=== PATIENT | male | born 1930 | race Hispanic/Latino ===

== ENCOUNTER 2018-07-22 10:16 | Inpatient (IN) | payer MEDICARE ==
[2018-07-22 10:28] VITALS: BMI 24.9
[2018-07-22] MEDS: Dextrose 5%/0.45% NS 1,000 ML IV SCH ×2 (11:25→22:19)
--- NOTE | 2018-07-22 11:36 | CP.PCM.CON ---
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 Ca at the bedside. And indicated that he was not feeling well and he has a blood test couple days ago with BUN as high as 101 and creatinine in the range of 2 approximately also the history and noted that he has history of liver cirrhosis etiology not clear. And he has history of chronic kidney disease with serum creatinine in the range of 1.6-1.7 I am told. Also he has significant celiac disease what appears to be chronic allergy to gluten and he has been taking gluten-free diet. He has been complaining of chronic itching for some time he has been evaluated by multiple air intercept controller for this chronic itching which causing some skin changes throughout his body. There was no nausea or vomiting although he has somewhat poor appetite and complaining also of leg swollen and increasing abdominal swollen as well. He complains of nocturia x1 or 2 but no dysuria also his past medical history related to his history of atrial fibrillation he was taken anticoagulation and has to be stopped although he has no longer atrial fibrillation recently and he is not taking anticoagulation and I am told his ejection fraction adequate as outpatient Past medical history Chronic kidney disease with serum creatinine of the range of 1.6-1.7 and told. Diabetes mellitus for many years he has been taking metformin Hypertension and he has been taking Avapro History of liver cirrhosis in the past 6 months or so told by the Medications Patient has been taking metformin and Avapro and hydrochlorothiazide which has been stopped yesterday also Also he is taking metoprolol Social history not contributory Review of Systems - Constitutional Constitutional: Anorexia, Malaise, Weakness. absent: Chills, Excessive Sweating - EENT Eyes: absent: Exophthalmos, Pain Ears: absent: Ear Discharge, Ear Pain Nose/Mouth/Throat: absent: Epistaxis, Nasal Discharge - Cardiovascular Cardiovascular: Edema, Leg Edema, Pedal Edema. absent: Acrocyanosis, Chest Pain, Dyspnea, Leg Ulcers - Respiratory Respiratory: Cough. absent: Chest Congestion - Gastrointestinal Gastrointestinal: Bloating, Diarrhea. absent: Abdominal Pain - Genitourinary Genitourinary: Nocturia - Musculoskeletal Musculoskeletal: Muscle Weakness. absent: Back Pain - Neurological Neurological: absent: Behavioral Changes, Confusion, Numbness, Focal Weakness - Psychiatric Psychiatric: absent: Anxiety, Confusion - Endocrine Endocrine: Fatigue - Hematologic/Lymphatic Hematologic: absent: Easy Bleeding Past Patient History - Infectious Disease Hx of Infectious Diseases: None - Past Social History Smoking Status: Never Smoked - PSYCHIATRIC Hx Substance Use: No Meds Allergies/Adverse Reactions: Allergies Allergy/AdvReac Type Severity Reaction Status Date / Time No Known Allergies Allergy Verified 07/22/18 10:50 Physical Exam - Constitutional Appears: No Acute Distress - Eye Exam Eye Exam: absent: Nystagmus - ENT Exam ENT Exam: Mucous Membranes Dry - Neck Exam Neck exam: Negative for: Lymphadenopathy - Respiratory Exam Respiratory Exam: NORMAL BREATHING PATTERN. absent: Chest Wall Tenderness, Rhonchi - Cardiovascular Exam Cardiovascular Exam: REGULAR RHYTHM, RRR. absent: Gallop, JVD, Rubs - GI/Abdominal Exam GI & Abdominal Exam: Distended, Normal Bowel Sounds. absent: Guarding Additional comments: Moderate abdominal ascites - Extremities Exam Extremities exam: Positive for: pedal edema. Negative for: calf tenderness - Back Exam Back exam: absent: CVA tenderness (L), CVA tenderness (R) - Neurological Exam Neurological exam: Alert - Psychiatric Exam Psychiatric exam: Normal Mood - Skin Skin Exam: Dry, Urticaria Additional comments: Some skin changes related to chronic itching in the abdomen and the chest wall and the back Results - Vital Signs Recent Vital Signs: Last Vital Signs Temp 99.1 F 07/22/18 10:30 Pulse 78 07/22/18 10:30 Resp 18 07/22/18 10:30 BP 129/59 L 07/22/18 10:30 Pulse Ox 99 07/22/18 10:30 - Labs Result Diagrams: 07/22/18 11:23 07/22/18 11:23 Assessment & Plan (1) KARMEN (acute kidney injury) Assessment and Plan: Rule out acute kidney injury possible from dehydration also patient was taking hydrochlorothiazide and WENDI inhibitor super imposed on chronic kidney disease perhaps stage III from the history when serum creatinine I am told in the range of 1.7 . Patient has abdominal ascites and leg edema with a history of liver cirrhosis Hypoalbuminemia Chronic celiac disease history Diabetes mellitus Hypertension Recommendation Discontinue Metformin because of the abnormal kidney function No WENDI inhibitor or ARB IV fluid D5 and half-normal saline Blood work including CBC complete metabolic profile hepatitis serology profile serum PTH serum phosphorus and serum uric acid 25% 50 cc albumin to be given every 12 hours for the next 24 hours because of the significant hypoalbuminemia and ascites. Urinalysis and spot urine for creatinine and protein Follow-up blood test. CT scan of the abdomen and pelvis without IV contrast Discuss with Dr. Ca and the emergency room physician. Status: Acute
[2018-07-22 11:46] LABS: VENOUS BLOOD GAS BASE EXCESS -7.1 mmol/L (0.0-2.0); VENOUS BLOOD GAS PCO2 28 mmHg (40-60); VENOUS BLOOD GAS PO2 39 mm/Hg (30-55); VENOUS BLOOD PH 7.38 (7.32-7.43)
[2018-07-22] MEDS ORDERED: Azithromycin 500 MG in Sodium Chloride 0.9% 250 ML IVPB STA (11:46)
[2018-07-22 11:47] LABS: BASO % 0.5 % (0.0-2.0); EOS # 0.1 K/uL (0.0-0.7); EOS % 2.8 % (0.0-4.0); HEMOGLOBIN 11.6 g/dL (12.0-18.0); LYMPH # 0.6 K/uL (1.0-4.3); LYMPH % 11.8 % (20.0-40.0); MEAN CELL VOLUME 97.1 fl (80.0-94.0); MEAN CORPUSCULAR HEMOGLOBIN 32.1 pg (27.0-31.0); MEAN PLATELET VOLUME 9.3 fl (7.2-11.7); MONO # 0.9 K/uL (0.0-0.8); MONO % 16.9 % (0.0-10.0); NEUT # 3.4 K/uL (1.8-7.0); NRBC % 0.1 % (0.0-0.0); RBC 3.63 Mil/uL (4.40-5.90); RED CELL DISTRIBUTION WIDTH 15.5 % (11.5-14.5)
[2018-07-22 11:58] LABS: ALBUMIN 3.6 g/dL (3.5-5.0); CALCIUM 9.1 mg/dL (8.4-10.2)
[2018-07-22] MEDS ORDERED: Azithromycin 500 MG IV IVPB ONE (12:08)
--- NOTE | 2018-07-22 12:19 | ED PDOC ---
HPI: General Adult Time Seen by Provider: 07/22/18 10:41 Chief Complaint (Nursing): Abnormal Labs Chief Complaint (Provider): Generalized malaise, abnormal renal labs History Per: Patient History/Exam Limitations: no limitations Additional Complaint(s): 88yo male, with history of CKD, celiac disease, AFib, diabetes, liver cirrhosis, comes to ER due to diarrhea, generalized malaise, cough and fever. Patient recently had labs done as well, and his creatinine was elevated at 2 (baseline is 1.6). Patient denies any abdominal pain or vomiting as well. No additional complaints. PMD: Dr. Ca Asset Management Coordinator: Dr. Orozco Past Medical History Reviewed: Historical Data, Nursing Documentation, Vital Signs Vital Signs: Last Vital Signs Temp 99.1 F 07/22/18 10:30 Pulse 78 07/22/18 10:30 Resp 18 07/22/18 10:30 BP 129/59 L 07/22/18 10:30 Pulse Ox 99 07/22/18 10:30 - Medical History PMH: Atrial Fibrillation, Diabetes, Chronic Kidney Disease - Family History Family History: States: No Known Family Hx - Social History Current smoker - smoking cessation education provided: No Alcohol: None Drugs: Denies - Home Medications Home Medications: Ambulatory Orders Medication Instructions Recorded Dicyclomine [Bentyl] 10 mg PO Q8 PRN 07/22/18 Irbesartan [Avapro] 300 mg PO DAILY 07/22/18 Metoprolol Succinate XL [Toprol XL] 50 mg PO DAILY 07/22/18 hydroCHLOROthiazide [Hydrodiuril] 25 mg PO DAILY 07/22/18 metFORMIN [glucOPHAGE] 500 mg PO BID 07/22/18 - Allergies Allergies/Adverse Reactions: Allergies Allergy/AdvReac Type Severity Reaction Status Date / Time No Known Allergies Allergy Verified 07/22/18 10:50 Review of Systems ROS Statement: Except As Marked, All Systems Reviewed And Found Negative Constitutional: Positive for: Fever (intermittent), Malaise Cardiovascular: Negative for: Chest Pain Respiratory: Positive for: Cough, Sputum. Negative for: Shortness of Breath Gastrointestinal: Positive for: Diarrhea. Negative for: Nausea, Vomiting, Abdominal Pain Physical Exam - Reviewed Nursing Documentation Reviewed: Yes Vital Signs Reviewed: Yes - Physical Exam Appears: Positive for: Non-toxic, No Acute Distress Head Exam: Positive for: ATRAUMATIC, NORMAL INSPECTION, NORMOCEPHALIC Skin: Positive for: Warm, Dry Eye Exam: Positive for: EOMI, PERRL ENT: Positive for: Normal ENT Inspection. Negative for: Pharyngeal Erythema, Tonsillar Exudate, Tonsillar Swelling Neck: Positive for: Normal, Painless ROM, Supple Cardiovascular/Chest: Positive for: Regular Rate, Rhythm. Negative for: Tach ycardia Respiratory: Positive for: Normal Breath Sounds. Negative for: Wheezing, Respiratory Distress Pulses-Radial (L): 2+ Pulses-Radial (R): 2+ Gastrointestinal/Abdominal: Positive for: Normal Exam, Soft. Negative for: Tenderness, Guarding, Rebound Back: Positive for: Normal Inspection. Negative for: L CVA Tenderness, R CVA Tenderness Extremity: Positive for: Normal ROM, Pedal Edema (non-pitting edema bilaterally) Neurological/Psych: Positive for: Awake, Alert, Oriented (x 3). Negative for: Motor/Sensory Deficits - Laboratory Results Result Diagrams: 07/22/18 11:23 07/23/18 05:30 Lab Results: pO2 39 mm/Hg (30-55) 07/22/18 11:35 VBG pH 7.38 (7.32-7.43) 07/22/18 11:35 VBG pCO2 28 mmHg (40-60) L 07/22/18 11:35 VBG HCO3 18.7 mmol/L 07/22/18 11:35 VBG Total CO2 17.5 mmol/L (22-28) L 07/22/18 11:35 VBG O2 Sat (Calc) 82.3 % (40-65) H 07/22/18 11:35 VBG Base Excess -7.1 mmol/L (0.0-2.0) L 07/22/18 11:35 VBG Potassium 4.5 mmol/L (3.6-5.2) 07/22/18 11:35 Sodium 138.0 mmol/L (132-148) 07/22/18 11:35 Chloride 111.0 mmol/L (98-107) H 07/22/18 11:35 Glucose 119 mg/dL (75-110) H 07/22/18 11:35 Lactate 1.9 mmol/L (0.7-2.1) 07/22/18 11:35 FiO2 21.0 % 07/22/18 11:35 Total Bilirubin 1.8 mg/dl (0.2-1.3) H 07/22/18 11:23 AST 35 U/L (17-59) 07/22/18 11:23 ALT 32 U/L (21-72) 07/22/18 11:23 Alkaline Phosphatase 120 U/L (38-126) 07/22/18 11:23 Total Protein 7.2 G/DL (6.3-8.2) 07/22/18 11:23 Albumin 3.6 g/dL (3.5-5.0) 07/22/18 11:23 Globulin 3.6 gm/dL (2.2-3.9) 07/22/18 11:23 Albumin/Globulin Ratio 1.0 (1.0-2.1) 07/22/18 11:23 - ECG O2 Sat by Pulse Oximetry: 99 (RA) Pulse Ox Interpretation: Normal Medical Decision Making Medical Decision Making: Impression: Diarrhea, fever, cough and abnormal labs Differential: Dehydration, pneumonia, sepsis, nephritis Patient evaluated at bedside by Dr. Ca and Dr. Orozco; recommendations appreciated. Plan: -- Labs -- CXR -- Rapid flu -- Urinalysis -- CT Chest, Abdomen and Pelvis 1200 CXR reviewed by me,right lower lobe opacity or infiltrate 1225 Serology reviewed, patient positive for influenza A [address] Rubin, and patient admitted under his service. 1454 CT Chest/Abdomen/Pelvis IMPRESSION: 1. Active CHF suggested mild right and minimal left pleural effusions noted. Cardiomegaly. Pulmonary vascular congestion. No pericardial effusion. 2. Limited patchy atelectasis or infiltrate right middle lobe with limited atelectasis favored at the dependent bilateral lower lobes and the lingula. 3. Cirrhosis with limited gastrohepatic ligament varices. Abdominal pelvic ascites felt to be related to cirrhosis. Splenomegaly to 15.9 cm, likely related to cirrhosis and possible hepatofugal blood flow. 4. Borderline segmental colitis descending colon. 5. Enlarged prostate gland. Scribe Attestation: Documented by Jane Ewing acting as a scribe for Zafar Blackburn MD. Provider Attestation: All medical record entries made by the Scribe were at my direction and personally dictated by me. I have reviewed the chart and agree that the record accurately reflects my personal performance of the history, physical exam, medical decision making, and the department course for this patient. I have also personally directed, reviewed, and agree with the discharge instructions and disposition. Disposition - Clinical Impression Clinical Impression: KARMEN (acute kidney injury), Pneumonia, Influenza A, CHF (congestive heart failure) - Patient ED Disposition Is Patient to be Admitted: Yes Discussed With : Manav Rubin Counseled Patient/Family Regarding: Studies Performed, Diagnosis - Disposition Disposition Time: 12:00 Condition: FAIR - Pt Status Changed To: Hospital Disposition Of: Inpatient - Admit Certification Admit to Inpatient:: After my assessment, the patient will require hospitalization for at least two midnights. This is because of the severity of symptoms shown, intensity of services needed, and/or the medical risk in this patient being treated as an outpatient. - POA Present On Arrival: None
[2018-07-22 12:33] LABS: INR 1.1; PROTHROMBIN TIME 12.6 Seconds (9.8-13.1)
--- NOTE | 2018-07-22 14:07 | CP.PCM.HP ---
<Garrett Jasos - Last Filed: 07/22/18 14:33> History of Present Illness - History of Present Illness History of Present Illness: 88 yo M with pmxhx of Atrial flutter, Diabetes, HTN, liver cirrhosis, celiac disease presents with yellow phlegmatous oral discharge and subjective fevers. Symptoms have been present for the past week. is present at bedside to give most of history. Reports intermittent diarrhea for 1 month. Denies Nausea or vomiting. Pt reports recent abnormal labs: BUN 100 Cr: 2.5; Denies history of renal failure; sent to ED per Dr. Ca; Pt states labs were ok in May. Of note, she has noticed progressive bilateral lower extremity swelling. They report that an ECHO was recently done at [place] and were told it was normal without CHF. PMD: Dr. Ca (Recently discontinued eliquis, metoprolol and hctz) Pulm: Dr. 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 absent: Dyspnea - Gastrointestinal Gastrointestinal: Abdominal Pain, Bloating, Change in Bowel Habits, Diarrhea, Excessive Flatus - Musculoskeletal Musculoskeletal: Abnormal Gait Past Patient History - Infectious Disease Hx of Infectious Diseases: None - Past Social History Smoking Status: Never Smoked Alcohol: None Drugs: Denies Home Situation {Lives}: With Family - CARDIAC Hx Atrial Fibrillation: No Hx Hypertension: Yes Other/Comment: Atrial flutter - RENAL Hx Chronic Kidney Disease: Yes - ENDOCRINE/METABOLIC Hx Diabetes Mellitus Type 2: Yes - GASTROINTESTINAL Hx Gastrointestinal Disorders: Yes (Celiac) - PSYCHIATRIC Hx Substance Use: No - SURGICAL HISTORY Hx Surgeries: Yes Other/Comment: Inguinal hernia x2; lap hortencia Meds Allergies/Adverse Reactions: Allergies Allergy/AdvReac Type Severity Reaction Status Date / Time No Known Allergies Allergy Verified 07/22/18 10:50 Physical Exam - Constitutional Appears: No Acute Distress - Eye Exam Eye Exam: EOMI - ENT Exam ENT Exam: Mucous Membranes Moist - Respiratory Exam Respiratory Exam: Decreased Breath Sounds, Rales (R>L) - Cardiovascular Exam Cardiovascular Exam: REGULAR RHYTHM, +S1, +S2 - GI/Abdominal Exam GI & Abdominal Exam: Distended (ascites), Normal Bowel Sounds, Soft. absent: Tenderness - Extremities Exam Extremities exam: Negative for: calf tenderness - Neurological Exam Neurological exam: Alert, CN II-XII Intact, Oriented x3 - Psychiatric Exam Psychiatric exam: Normal Affect, Normal Mood Results - Vital Signs Recent Vital Signs: Last Vital Signs Temp 97.7 F 07/22/18 13:30 Pulse 67 07/22/18 13:30 Resp 20 07/22/18 13:30 BP 135/68 07/22/18 13:30 Pulse Ox 99 07/22/18 13:58 - Labs Result Diagrams: 07/22/18 11:23 07/22/18 11:23 Labs: Laboratory Results - last 24 hr 07/22/18 07/22/18 07/22/18 11:23 11:23 11:23 WBC 5.0 RBC 3.63 L Hgb 11.6 L Hct 35.2 MCV 97.1 H MCH 32.1 H MCHC 33.0 RDW 15.5 H Plt Count 95 L D MPV 9.3 Neut % (Auto) 68.0 Lymph % (Auto) 11.8 L Hale % (Auto) 16.9 H Eos % (Auto) 2.8 Baso % (Auto) 0.5 Neut # (Auto) 3.4 Lymph # (Auto) 0.6 L Hale # (Auto) 0.9 H Eos # (Auto) 0.1 Baso # (Auto) 0.0 PT INR APTT pO2 VBG pH VBG pCO2 VBG HCO3 VBG Total CO2 VBG O2 Sat (Calc) VBG Base Excess VBG Potassium Glucose Lactate FiO2 Sodium 139 Potassium 4.6 Chloride 109 H Carbon Dioxide 14 L Anion Gap 21 H BUN 94 H Creatinine 2.9 H Est GFR ( Amer) 25 Est GFR (Non-Af Amer) 21 Random Glucose 114 H Calcium 9.1 Phosphorus 4.4 Magnesium 2.9 H Total Bilirubin 1.8 H AST 35 ALT 32 Alkaline Phosphatase 120 Ammonia Total Protein 7.2 Albumin 3.6 Globulin 3.6 Albumin/Globulin Ratio 1.0 Venous Blood Potassium Influenza Typ A,B (EIA) Pos for influenza a H Grp A Beta Strep Ag 07/22/18 07/22/18 07/22/18 11:23 11:35 12:13 WBC RBC Hgb Hct MCV MCH MCHC RDW Plt Count MPV Neut % (Auto) Lymph % (Auto) Hale % (Auto) Eos % (Auto) Baso % (Auto) Neut # (Auto) Lymph # (Auto) Hale # (Auto) Eos # (Auto) Baso # (Auto) PT 12.6 INR 1.1 APTT 35.0 pO2 39 VBG pH 7.38 VBG pCO2 28 L VBG HCO3 18.7 VBG Total CO2 17.5 L VBG O2 Sat (Calc) 82.3 H VBG Base Excess -7.1 L VBG Potassium 4.5 Glucose 119 H Lactate 1.9 FiO2 21.0 Sodium 138.0 Potassium Chloride 111.0 H Carbon Dioxide Anion Gap BUN Creatinine Est GFR ( Amer) Est GFR (Non-Af Amer) Random Glucose Calcium Phosphorus Magnesium Total Bilirubin AST ALT Alkaline Phosphatase Ammonia 42 H Total Protein Albumin Globulin Albumin/Globulin Ratio Venous Blood Potassium 4.5 Influenza Typ A,B (EIA) Grp A Beta Strep Ag 07/22/18 12:50 WBC RBC Hgb Hct MCV MCH MCHC RDW Plt Count MPV Neut % (Auto) Lymph % (Auto) Hale % (Auto) Eos % (Auto) Baso % (Auto) Neut # (Auto) Lymph # (Auto) Hale # (Auto) Eos # (Auto) Baso # (Auto) PT INR APTT pO2 VBG pH VBG pCO2 VBG HCO3 VBG Total CO2 VBG O2 Sat (Calc) VBG Base Excess VBG Potassium Glucose Lactate FiO2 Sodium Potassium Chloride Carbon Dioxide Anion Gap BUN Creatinine Est GFR ( Amer) Est GFR (Non-Af Amer) Random Glucose Calcium Phosphorus Magnesium Total Bilirubin AST ALT Alkaline Phosphatase Ammonia Total Protein Albumin Globulin Albumin/Globulin Ratio Venous Blood Potassium Influenza Typ A,B (EIA) Grp A Beta Strep Ag Negative Assessment & Plan - Assessment and Plan (Free Text) Assessment: 88 yo M with pmxhx of Atrial flutter, Diabetes, HTN, liver cirrhosis, celiac disease admitted for pneumonia, influenza and acute kidney injury. Plan: CXR: R pleural effusions CT chest/abdo/pelvis: pending official read Blood culture: pending Urine culture: pending KARMEN -BUN: 94, Cr: 2.9 -Nephrology: Dr. Orozco: d/c metformin, NO WENDI/ARB, IVF: d5 1/2 ns, hepatitis panel, PTH, phos, uric acid, 25% 50 cc albuminq q12; UA, spot urine (cr and protein) CT a/p -IVF: D5 1/2 NS -Renal diet -f/u labs above Influenza A -Tamiflu 30 mg BID (renal dose) -Isolation precaution: airborne Liver cirrhosis -Pt states was incidentally found on prior CT abdo -LFT: wnl -GI: Dr. Leo: further recs appreciated -f/u hepatitis panel, LFT R pleural effusion -cxr -chronic -R sided -DDX PNA -Pulmonology: Dr. Person: further recs appreciated -IVABX: Azithromycin and Zosyn -f/u probnp ddx (CHF) Atrial flutter -Not currently in flutter -Tele: environmental monitoring specialist -Cardiology: Dr. Ca: further recs appreciated HTN -normotensive -HCTZ and Metoprolol recently discontinued by Dr. Ca -Cardiology: Dr. Ca: further recs appreciated -continue to monitor BP -Will give antihypertensive (sparing kidneys) DM -Metformin held; -Accuchecks -ICS -hypoglycemia protocol Celiac disease; chronic -Renal diet with gluten free DVT prophylaxis -SCD -Lovenox 30 mg sc Case and plan d/w Dr. Scottie Jasso MD PGY2 <Manav Rubin D - Last Filed: 07/22/18 16:09> Results - Vital Signs Recent Vital Signs: Last Vital Signs Temp 97.5 F L 07/22/18 15:42 Pulse 66 07/22/18 15:42 Resp 18 07/22/18 15:42 BP 152/70 H 07/22/18 15:42 Pulse Ox 94 L 07/22/18 15:42 - Labs Result Diagrams: 07/22/18 11:23 07/22/18 11:23 Labs: Laboratory Results - last 24 hr 07/22/18 07/22/18 07/22/18 11:23 11:23 11:23 WBC 5.0 RBC 3.63 L Hgb 11.6 L Hct 35.2 MCV 97.1 H MCH 32.1 H MCHC 33.0 RDW 15.5 H Plt Count 95 L D MPV 9.3 Neut % (Auto) 68.0 Lymph % (Auto) 11.8 L Hale % (Auto) 16.9 H Eos % (Auto) 2.8 Baso % (Auto) 0.5 Neut # (Auto) 3.4 Lymph # (Auto) 0.6 L Hale # (Auto) 0.9 H Eos # (Auto) 0.1 Baso # (Auto) 0.0 PT INR APTT pO2 VBG pH VBG pCO2 VBG HCO3 VBG Total CO2 VBG O2 Sat (Calc) VBG Base Excess VBG Potassium Glucose Lactate FiO2 Sodium 139 Potassium 4.6 Chloride 109 H Carbon Dioxide 14 L Anion Gap 21 H BUN 94 H Creatinine 2.9 H Est GFR ( Amer) 25 Est GFR (Non-Af Amer) 21 Random Glucose 114 H Calcium 9.1 Phosphorus 4.4 Magnesium 2.9 H Total Bilirubin 1.8 H AST 35 ALT 32 Alkaline Phosphatase 120 Ammonia Total Protein 7.2 Albumin 3.6 Globulin 3.6 Albumin/Globulin Ratio 1.0 Venous Blood Potassium Influenza Typ A,B (EIA) Pos for influenza a H Grp A Beta Strep Ag 07/22/18 07/22/18 07/22/18 11:23 11:35 12:13 WBC RBC Hgb Hct MCV MCH MCHC RDW Plt Count MPV Neut % (Auto) Lymph % (Auto) Hale % (Auto) Eos % (Auto) Baso % (Auto) Neut # (Auto) Lymph # (Auto) Hale # (Auto) Eos # (Auto) Baso # (Auto) PT 12.6 INR 1.1 APTT 35.0 pO2 39 VBG pH 7.38 VBG pCO2 28 L VBG HCO3 18.7 VBG Total CO2 17.5 L VBG O2 Sat (Calc) 82.3 H VBG Base Excess -7.1 L VBG Potassium 4.5 Glucose 119 H Lactate 1.9 FiO2 21.0 Sodium 138.0 Potassium Chloride 111.0 H Carbon Dioxide Anion Gap BUN Creatinine Est GFR ( Amer) Est GFR (Non-Af Amer) Random Glucose Calcium Phosphorus Magnesium Total Bilirubin AST ALT Alkaline Phosphatase Ammonia 42 H Total Protein Albumin Globulin Albumin/Globulin Ratio Venous Blood Potassium 4.5 Influenza Typ A,B (EIA) Grp A Beta Strep Ag 07/22/18 12:50 WBC RBC Hgb Hct MCV MCH MCHC RDW Plt Count MPV Neut % (Auto) Lymph % (Auto) Hale % (Auto) Eos % (Auto) Baso % (Auto) Neut # (Auto) Lymph # (Auto) Hale # (Auto) Eos # (Auto) Baso # (Auto) PT INR APTT pO2 VBG pH VBG pCO2 VBG HCO3 VBG Total CO2 VBG O2 Sat (Calc) VBG Base Excess VBG Potassium Glucose Lactate FiO2 Sodium Potassium Chloride Carbon Dioxide Anion Gap BUN Creatinine Est GFR ( Amer) Est GFR (Non-Af Amer) Random Glucose Calcium Phosphorus Magnesium Total Bilirubin AST ALT Alkaline Phosphatase Ammonia Total Protein Albumin Globulin Albumin/Globulin Ratio Venous Blood Potassium Influenza Typ A,B (EIA) Grp A Beta Strep Ag Negative Attending/Attestation - Attestation I have personally seen and examined this patient.: Yes I have fully participated in the care of the patient.: Yes I have reviewed all pertinent clinical information: Yes Notes (Text): 07/22/18 16:00 Patient seen and examined with resident. Case discussed and agreed with assessment and plan of management. Shakirstacey is an 88 yo male with history of DM2, CKD and HTN diagnosed with liver cirrhosis a year ago of unknown etiology. He came in with generalized weakness, diarrhea, low grade fever associated with coughing and mild SOB. CXray showed cardiomegaly, right pleural effusion rule out infiltrate. Test is positive for viral flu.
[2018-07-22] MEDS ORDERED: Glucagon Recombinant 1 mg Inj IM PRN (14:56)
[2018-07-22] MEDS ORDERED: Dextrose 50% SYRINGE Inj (50 ml) IV PRN (14:56)
--- NOTE | 2018-07-22 14:58 | CT ---
Date of service: 07/22/2018 PROCEDURE: CT Chest, Abdomen and Pelvis without intravenous contrast HISTORY: acute renal failure COMPARISON: None available. TECHNIQUE: A helical CT examination of the chest, abdomen and pelvis was performed from the domes of the thoracic inlet to the symphysis pubis with reformatted datasets provided in axial, sagittal and coronal planes. Oral and intravenous contrast were not administered as per referring physician request. Radiation dose: Total exam DLP = 890.17 mGy-cm. This CT exam was performed using one or more of the following dose reduction techniques: Automated exposure control, adjustment of the mA and/or kV according to patient size, and/or use of iterative reconstruction technique. FINDINGS: CT CHEST WITHOUT CONTRAST: Respiratory motion artifacts. LUNGS: There is mild thickening of the interlobular septal markings primarily at the bilateral apices. Cardiomegaly and pulmonary vascular congestive hilar vascular changes are also identified in a pattern that is suspicious for active CHF/pulmonary edema. Clinically correlate further. Restrained motion degrades quality this exam. Limited patchy airspace seen at the right middle lobe in both medial as well as lateral segments with trace dependent atelectasis identified in the bilateral lower lobes and lingula. No definitive pulmonary mass appreciable. Central airways appear clear though artifacted by respiratory motion. MEDIASTINUM: Cardiomegaly. Extensive coronary artery calcification identified. Pulmonary vascular congestion. Small caliber thoracic aorta and main pulmonary artery. Calcific atherosclerotic changes are seen related to the thoracic aorta. Thoracic inlet reflects only great vessel atherosclerosis. LYMPH NODES: Unremarkable. PLEURA: Mild right and minimal left pleural effusions are identified. No pericardial effusion. BONES: Dextroscoliotic thoracic spinal deformity identified. No definitive acute fracture appreciable. OTHER FINDINGS: None. CT ABDOMEN AND PELVIS: Respiratory motion artifacts distort the exam in the abdomen and pelvis as well. LIVER: A cirrhotic upper limits normal size liver is identified without focal mass appreciated in this unenhanced examination. No gross intrahepatic biliary dilatation. Surface of the liver appears nodular. GALLBLADDER AND BILE DUCTS: Prior cholecystectomy. PANCREAS: Unremarkable. No gross lesion or ductal dilatation. SPLEEN: Splenomegaly to 15.9 cm. ADRENALS: Unremarkable. No mass. KIDNEYS AND URETERS: 5.3 cm intrarenal cyst upper midpole left kidney. No obstructive uropathy bilaterally or radiodense urolithiasis. VASCULATURE: Nonaneurysmal abdominal aortic calcific atherosclerotic changes are identified. BOWEL: No bowel obstruction evident. Imaging of the colon is mild below as well as small bowel due lack oral contrast demonstrates. The stomach is collapsed completely with a small hiatal hernia associated. Questionable thickening of the left hemicolon raise question of limited segmental colitis though the latter is not favored. Sigmoid diverticular changes are prominent. Ascites limits the evaluation here but uncomplicated diverticular changes are favored over diverticulitis. APPENDIX: Not identified. PERITONEUM: Unremarkable. No free fluid. No free air. LYMPH NODES: Unremarkable. No enlarged lymph nodes. BLADDER: Unremarkable. REPRODUCTIVE: Enlarged prostate gland. BONES: Advanced multilevel lumbar spondylosis and facet joint arthropathy. No acute fracture appreciable. OTHER FINDINGS: None. IMPRESSION: 1. Active CHF suggested mild right and minimal left pleural effusions noted. Cardiomegaly. Pulmonary vascular congestion. No pericardial effusion. 2. Limited patchy atelectasis or infiltrate right middle lobe with limited atelectasis favored at the dependent bilateral lower lobes and the lingula. 3. Cirrhosis with limited gastrohepatic ligament varices. Abdominal pelvic ascites felt to be related to cirrhosis. Splenomegaly to 15.9 cm, likely related to cirrhosis and possible hepatofugal blood flow. 4. Borderline segmental colitis descending colon. 5. Enlarged prostate gland.
--- NOTE | 2018-07-22 15:45 | RAD ---
Date of service: 07/22/2018 HISTORY: Sepsis Patient COMPARISON: No prior. TECHNIQUE: July 21, 2018. CT thorax abdomen and pelvis. FINDINGS: LUNGS: Consolidative changes, asymmetric pulmonary vascular congestion right lung affected to a greater extent than the left lung. PLEURA: No significant pleural effusion identified. No pneumothorax apparent. CARDIOVASCULAR: No aortic atherosclerotic calcification present. Normal cardiac size. Asymmetrical pulmonary vascular congestion. OSSEOUS STRUCTURES: No significant abnormalities. VISUALIZED UPPER ABDOMEN: Normal. OTHER FINDINGS: None. IMPRESSION: Asymmetric pulmonary vascular congestion right more prominent than left. Superimposed right lower lobe infiltrate/atelectasis should also be considered.
[2018-07-22] MEDS ORDERED: Albumin Human 25% (12.5 gm/50 ml) IV ONE (16:35)
[2018-07-22] MEDS: Insulin Regular 100 units/ml SC SCH ×2 (16:50→22:23)
--- NOTE | 2018-07-22 17:21 | CARD ---
APPROVED REPORT Date of service: 07/22/2018 EKG Measurement Heart [id number] <Conclusion> Sinus rhythm with 1st degree AV block with premature supraventricular complexes Nonspecific ST abnormality Abnormal ECG
[2018-07-22 18:49] LABS: HEPATITIS B SURFACE AG Negative (NEGATIVE)
[2018-07-22 18:55] LABS: HEPATITIS A IGM NEGATIVE (NEGATIVE); HEPATITIS B CORE AB NEGATIVE (NEGATIVE)
[2018-07-22 19:07] LABS: HEPATITIS C ANTIBODY NEGATIVE (NEGATIVE)
--- NOTE | 2018-07-22 21:02 | CP.PCM.CON ---
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 HE HAS A LONG HISTORY OF HYPERTENSION, ATRIAL FIBRILLATION IN THE PAST BUT NOW IN NSR WITH PACS AND BENIGN PVCS, CRF STAGE 3, CELIAC DISEASE, CHRONIC SEVERE SKIN MARISOL HES BELIEVED TO BE FROM CELIAC DISEASE AND IN APRIL HE HAD A CT SCAN THAT SHOWED CIRRHOSIS OF THE LIVER. HE WAS STATED ON XARELTO LATE LAST YEAR BY A [facility] SPECIALIST DUE TO THE PAST ATRIAL FIBRILLATION HISTORY BUT IT WAS STOPPED SHORTLY AFTERWARDS DUE TO HEME POSITIVE STOOL. HE WAS GOING TO HAVE A COLONOSCOPY AND FURTHER ASSESSMENT OF THE LIVER CIRRHOSIS BY THE [facility] GI TEAM HE SEE FOR HIS CELIAC DISEASE BUT HE DIDN'T HAVE THESE WORK-UPS DONE YET. HE NOW STATES THAT FOR ABOUT 2 WEEKS HE HAS DIARRHEA AND WASN'T EATING OR DRINKING MUCH. HE WAS ALSO RUNNING A LOW GRADE TEMPERATURE OF 100-101 F. HIS BASELINE BUN WAS IN THE HIGH 30'S AND HIS CR WAS ABOUT 1.8 AND HE SEES A ECOTHERAPIST AT [facility] IN [place], [place]. HE HAD LABS DONE A FEW DAYS AGO THAT SHOWED A BUN OF 101 AND A CR OF 2.5. I SPOKE TO HIM LAST EVENING AT HOME AND ADVISED HIM STOP HIS AVAPRO, HCTZ AND METFORMEN AND TO COME TO THE ER FOR A GENERAL EVALUATION WELL IV FLUIDS AND IV ANTIBIOTICS BUT HE DECLINED BUT FINALLY AGREED TO COME IN TODAY. HE DENIES FEVERS, CHILLS, CHEST PAIN OR PALPITATIONS, BUT HE DID HAVE COUGHING AND FELT LIKE HE HAD PHLEGM BUT STATES HIS THROAT WAS JUST TOO DRY TO GET ANY UP. I SPOKE TO DR SANTIAGO WHO AGREED TO SEE HIM THIS MORNING ON NEPHROLOGY CONSULTATION. Past Patient History - Infectious Disease Hx of Infectious Diseases: None - Past Medical History & Family History Past Medical History?: Yes - Past Social History Smoking Status: Never Smoked - CARDIAC Hx Atrial Fibrillation: No Hx Hypertension: Yes Other/Comment: Atrial flutter - RENAL Hx Chronic Kidney Disease: Yes - ENDOCRINE/METABOLIC Hx Diabetes Mellitus Type 2: Yes - HEMATOLOGICAL/ONCOLOGICAL Hx AIDS: No Hx Human Immunodeficiency Virus (HIV): No - MUSCULOSKELETAL/RHEUMATOLOGICAL Hx Falls: No - GASTROINTESTINAL Hx Gastrointestinal Disorders: Yes (Celiac) - PSYCHIATRIC Hx Substance Use: No - SURGICAL HISTORY Hx Surgeries: Yes Other/Comment: Inguinal hernia x2; lap hortencia Meds Allergies/Adverse Reactions: Allergies Allergy/AdvReac Type Severity Reaction Status Date / Time No Known Allergies Allergy Verified 07/22/18 10:50 - Medications Medications: Current Medications Dextrose (Dextrose 50% Inj) 0 ml IV STAT PRN; Protocol PRN Reason: Hypoglycemia Protocol Dextrose (Glutose 15) 0 gm PO ONCE PRN; Protocol PRN Reason: Hypoglycemia Protocol Dicyclomine HCl (Bentyl) 10 mg PO Q8 PRN PRN Reason: abdominal pain/cramps Enoxaparin Sodium (Lovenox) 30 mg SC DAILY ARACELI; Protocol Glucagon (Glucagen Diagnostic Kit) 0 mg IM STAT PRN; Protocol PRN Reason: Hypoglycemia Protocol Dextrose/Sodium Chloride (Dextrose 5%/0.45% Ns 1000 Ml) 1,000 mls @ 100 mls/hr IV .Q10H ARACELI Stop: 07/23/18 11:35 Last Admin: 07/22/18 11:25 Dose: 100 mls/hr Azithromycin 500 mg/ Sodium (Chloride) 250 mls @ 250 mls/hr IVPB DAILY ARACELI; Protocol Piperacillin Sod/Tazobactam (Sod 2.25 gm/ Sodium Chloride) 100 mls @ 100 mls/hr IVPB Q6 ARACELI; Protocol Last Admin: 07/22/18 16:50 Dose: 100 mls/hr Insulin Human Regular (Humulin R) 0 units SC ACHS ARACELI; Protocol Last Admin: 07/22/18 16:50 Dose: Not Given Morphine Sulfate (Morphine) 2 mg IVP Q6 PRN PRN Reason: Pain, Mild (1-3) Morphine Sulfate (Morphine) 4 mg IVP Q4 PRN PRN Reason: Pain, moderate (4-7) Oseltamivir Phosphate (Tamiflu Cap) 30 mg PO BID ARACELI; Protocol Sodium Bicarbonate (Sodium Bicarbonate Tab) 650 mg PO Q6 ARACELI Physical Exam - Respiratory Exam Respiratory Exam: Decreased Breath Sounds, Clear to Auscultation Bilateral - Cardiovascular Exam Cardiovascular Exam: REGULAR RHYTHM, +S1, +S2 - Extremities Exam Additional comments: ` 3+ BILAT LE EDEMA - Additional Findings Additional findings: EKG NSR, PACS, NO ACUTE CHANGES INFLUENZA H POSITIVE OTHER LABS PENDING Results - Vital Signs Recent Vital Signs: Last Vital Signs Temp 98.6 F 07/22/18 19:42 Pulse 79 07/22/18 19:42 Resp 18 07/22/18 19:42 BP 159/83 H 07/22/18 19:42 Pulse Ox 98 07/22/18 19:42 - Labs Result Diagrams: 07/22/18 11:23 07/22/18 11:23 Labs: Laboratory Results - last 24 hr 07/22/18 07/22/18 07/22/18 11:23 11:23 11:23 WBC 5.0 RBC 3.63 L Hgb 11.6 L Hct 35.2 MCV 97.1 H MCH 32.1 H MCHC 33.0 RDW 15.5 H Plt Count 95 L D MPV 9.3 Neut % (Auto) 68.0 Lymph % (Auto) 11.8 L [place] % (Auto) 16.9 H Eos % (Auto) 2.8 Baso % (Auto) 0.5 Neut # (Auto) 3.4 Lymph # (Auto) 0.6 L [place] # (Auto) 0.9 H Eos # (Auto) 0.1 Baso # (Auto) 0.0 PT INR APTT pO2 VBG pH VBG pCO2 VBG HCO3 VBG Total CO2 VBG O2 Sat (Calc) VBG Base Excess VBG Potassium Glucose Lactate FiO2 Sodium 139 Potassium 4.6 Chloride 109 H Carbon Dioxide 14 L Anion Gap 21 H BUN 94 H Creatinine 2.9 H Est GFR ( Amer) 25 Est GFR (Non-Af Amer) 21 POC Glucose (mg/dL) Random Glucose 114 H Calcium 9.1 Phosphorus 4.4 Magnesium 2.9 H Total Bilirubin 1.8 H AST 35 ALT 32 Alkaline Phosphatase 120 Ammonia Total Protein 7.2 Albumin 3.6 Globulin 3.6 Albumin/Globulin Ratio 1.0 Venous Blood Potassium Hepatitis A IgM Ab Hep Bs Antigen Hep B Core IgM Ab Hepatitis C Antibody Influenza Typ A,B (EIA) Pos for influenza a H Grp A Beta Strep Ag 07/22/18 07/22/18 07/22/18 11:23 11:23 11:35 WBC RBC Hgb Hct MCV MCH MCHC RDW Plt Count MPV Neut % (Auto) Lymph % (Auto) [place] % (Auto) Eos % (Auto) Baso % (Auto) Neut # (Auto) Lymph # (Auto) [place] # (Auto) Eos # (Auto) Baso # (Auto) PT INR APTT pO2 39 VBG pH 7.38 VBG pCO2 28 L VBG HCO3 18.7 VBG Total CO2 17.5 L VBG O2 Sat (Calc) 82.3 H VBG Base Excess -7.1 L VBG Potassium 4.5 Glucose 119 H Lactate 1.9 FiO2 21.0 Sodium 138.0 Potassium Chloride 111.0 H Carbon Dioxide Anion Gap BUN Creatinine Est GFR ( Amer) Est GFR (Non-Af Amer) POC Glucose (mg/dL) Random Glucose Calcium Phosphorus Magnesium Total Bilirubin AST ALT Alkaline Phosphatase Ammonia 42 H Total Protein Albumin Globulin Albumin/Globulin Ratio Venous Blood Potassium 4.5 Hepatitis A IgM Ab Negative Hep Bs Antigen Negative Hep B Core IgM Ab Negative Hepatitis C Antibody Negative Influenza Typ A,B (EIA) Grp A Beta Strep Ag 07/22/18 07/22/18 07/22/18 12:13 12:50 16:48 WBC RBC Hgb Hct MCV MCH MCHC RDW Plt Count MPV Neut % (Auto) Lymph % (Auto) [place] % (Auto) Eos % (Auto) Baso % (Auto) Neut # (Auto) Lymph # (Auto) [place] # (Auto) Eos # (Auto) Baso # (Auto) PT 12.6 INR 1.1 APTT 35.0 pO2 VBG pH VBG pCO2 VBG HCO3 VBG Total CO2 VBG O2 Sat (Calc) VBG Base Excess VBG Potassium Glucose Lactate FiO2 Sodium Potassium Chloride Carbon Dioxide Anion Gap BUN Creatinine Est GFR ( Amer) Est GFR (Non-Af Amer) POC Glucose (mg/dL) 130 H Random Glucose Calcium Phosphorus Magnesium Total Bilirubin AST ALT Alkaline Phosphatase Ammonia Total Protein Albumin Globulin Albumin/Globulin Ratio Venous Blood Potassium Hepatitis A IgM Ab Hep Bs Antigen Hep B Core IgM Ab Hepatitis C Antibody Influenza Typ A,B (EIA) Grp A Beta Strep Ag Negative Assessment & Plan - Assessment and Plan (Free Text) Assessment: KARMEN ON TOP OF CRF STAGE 3 MOST PROBABLY FROM DEHYDRATION AND HCTZ USE AND PO SSIBLY FROM AVAPRO INFLUENZA H HYPERTENSION CIRRHOSIS OF THE LIVER-ETIOLOGY IS UNCLEAR AT THE PRESENT TIME RECENT HEME POSITIVE STOOL ON XARELTO THAT HAS BEEN DISCONTINUED HISTORY OF ATRIAL FIBRILLATION-NOW IN SINUS RHYTHM WITH BENIGN PACS AND PVCS CELIAC DISEASE Plan: THE PATIENT WILL BE ADMITTED TO 4N ON TELEMETRY IV FLUIDS AND SEPTIC GARY FOLLOWED BY IV ANTIBIOTICS THE PATIENT WAS SEEN THIS AM IN THE ER ALONG WITH DR SANTIAGO AND WE DISCUSSED INITIAL GARY AND TX AND HE ALSO AGREED ON HOLDING AVAPRO, HCTZ AND METFORMEN FOR NOW PATIENT TO BE SEEN BY GI AND PULMONARY TAMIFLU AND DVT PROPYLAXIS DOSE LOVENOX CXR, CT OF CHEST, ABDOMEN AND PELVIS PATIENT ALSO DISCUSSED WITH ER PHYSICIAN AND HOSPITALST FURTHER GARY AND TX PER CLINICAL COURSE, LAB RESULTS AND ASSISTANT QUALITY MANAGER INPUT THE WAS SPOKEN TO IN DETAIL
--- NOTE | 2018-07-23 08:27 | CP.PCM.CON ---
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 He has been followed by cardiology and GI as an outpatient because of prior a fib for which he had been taking rivaroxaban and FENG with cirrhosis. He has also been diagnosed with gluten enteropathy and KARMEN/CKD. He relates recent cough with thick yellow sputum, no chest pain or hemoptysis.He has noted increasing dependant edema of the legs for more than a month now. A CT chest/abdomen showed pulmonary vascular congestive pattern with pleural effusions and patchy ground glass opacities in the right middle lobe as well as subsegmental areas of atelectasis in the lower lobes. Cirrhotic liver pattern and splenomegaly as well as abdominal ascites is also seen. He has tested positive for influenza and has been started on oseltamivir at renal adjusted dosing. He has also been placed on azithromycin and Zosyn for possible pneumonia. Past Patient History - Infectious Disease Hx of Infectious Diseases: None - Past Medical History & Family History Past Medical History?: Yes Pertinent Family History: Hypertnesion, bladder cancer, pancretic cancer, CAD, IBS - Past Social History Smoking Status: Never Smoked Chewing Tobacco Use: No Cigar Use: No Alcohol: Social Drugs: Denies Home Situation {Lives}: With Family - CARDIAC Hx Atrial Fibrillation: Yes Hx Hypertension: Yes - PULMONARY Hx Respiratory Disorders: No - NEUROLOGICAL Hx Neurological Disorder: No - HEENT Other/Comment: [place] - RENAL Hx Chronic Kidney Disease: Yes - ENDOCRINE/METABOLIC Hx Diabetes Mellitus Type 2: Yes - HEMATOLOGICAL/ONCOLOGICAL Hx Cirrhosis: Yes Hx Human Immunodeficiency Virus (HIV): No - INTEGUMENTARY Hx Dermatological Problems: No - MUSCULOSKELETAL/RHEUMATOLOGICAL Hx Falls: No - GASTROINTESTINAL Hx Gastrointestinal Disorders: Yes (Celiac) Other/Comment: ?gluten enteropathy - GENITOURINARY/GYNECOLOGICAL Hx Genitourinary Disorders: No - PSYCHIATRIC Hx Psychophysiologic Disorder: No Hx Substance Use: No - SURGICAL HISTORY Hx Surgeries: Yes Hx Cholecystectomy: Yes Hx Herniorrhaphy: Yes (x2) Meds Home Medications: Home Medication List Medication Instructions Recorded Confirmed Type Albumin Human 25% [Albumin Human 12.5 gm IV Q8 vial 07/26/18 Rx 25% (12.5 gm/50 ml)] Lactobacillus Acidophilus [Bacid 1 cap PO BID cap 07/26/18 Rx Acidophilus] Levalbuterol [Xopenex] 0.63 mg INH RQ8 neb 07/26/18 Rx Levalbuterol [Xopenex] 1.25 mg INH RQ8 PRN neb 07/26/18 Rx Metoprolol Succinate XL [Toprol XL] 50 mg PO DAILY tab 07/26/18 Rx Oseltamivir Cap [Tamiflu Cap] 30 mg PO BID capsule 07/26/18 Rx Repaglinide [Prandin] 0.5 mg PO TIDAC tab 07/26/18 Rx Simethicone [Mylicon Liq] 40 mg PO Q6 PRN ml 07/26/18 Rx Sodium Bicarbonate Tab 650 mg PO Q6 tab 07/26/18 Rx Spironolactone [Aldactone] 25 mg PO BID tab 07/26/18 Rx hydrALAZINE [Apresoline] 10 mg PO TID tab 07/26/18 Rx Allergies/Adverse Reactions: Allergies Allergy/AdvReac Type Severity Reaction Status Date / Time No Known Allergies Allergy Verified 07/22/18 10:50 - Medications Medications: Current Medications Dextrose (Dextrose 50% Inj) 0 ml IV STAT PRN; Protocol PRN Reason: Hypoglycemia Protocol Dextrose (Glutose 15) 0 gm PO ONCE PRN; Protocol PRN Reason: Hypoglycemia Protocol Dicyclomine HCl (Bentyl) 10 mg PO Q8 PRN PRN Reason: abdominal pain/cramps Enoxaparin Sodium (Lovenox) 30 mg SC DAILY ARACELI; Protocol Glucagon (Glucagen Diagnostic Kit) 0 mg IM STAT PRN; Protocol PRN Reason: Hypoglycemia Protocol Dextrose/Sodium Chloride (Dextrose 5%/0.45% Ns 1000 Ml) 1,000 mls @ 100 mls/hr IV .Q10H ARACELI Stop: 07/23/18 11:35 Last Admin: 07/22/18 22:19 Dose: 100 mls/hr Azithromycin 500 mg/ Sodium (Chloride) 250 mls @ 250 mls/hr IVPB DAILY ARACELI; Protocol Piperacillin Sod/Tazobactam (Sod 2.25 gm/ Sodium Chloride) 100 mls @ 100 mls/hr IVPB Q6 ARACELI; Protocol Last Admin: 07/23/18 03:34 Dose: 100 mls/hr Insulin Human Regular (Humulin R) 0 units SC ACHS ARACELI; Protocol Last Admin: 07/22/18 22:23 Dose: Not Given Morphine Sulfate (Morphine) 2 mg IVP Q6 PRN PRN Reason: Pain, Mild (1-3) Morphine Sulfate (Morphine) 4 mg IVP Q4 PRN PRN Reason: Pain, moderate (4-7) Oseltamivir Phosphate (Tamiflu Cap) 30 mg PO BID [facility]; Protocol Last Admin: 07/22/18 22:22 Dose: 30 mg Sodium Bicarbonate (Sodium Bicarbonate Tab) 650 mg PO Q6 ARACELI Last Admin: 07/23/18 03:37 Dose: 650 mg Physical Exam - Additional Findings Additional findings: Lethargic, very KOOT[place]I w/o his hearing aisds. Cooperative with the exam. Dependant edema ++ w/o cyanosis. Speech is fluent, memory appearsintact. Pharynx is injected w/o exudate. MM moist. Neck is supple, trachea is midline. No palpable lymphadenopathy. Dullness on chest percussion in the right base posteriorly. Scattered rhonchi are present bilaterally with medium rales in lower lobes. Occasional expiratory wheezing in lower lobes as well. No bronchial breath sounds or egophony. Heart sounds are well heard, regular rhythm. Abdomen is distended, + fluid wave. Non-tender, NABS. ++ dependant edema of lower extremities. Results - Vital Signs Recent Vital Signs: Last Vital Signs Temp 98.3 F 07/23/18 07:54 Pulse 83 07/23/18 07:54 Resp 18 07/23/18 07:54 BP 167/95 H 07/23/18 07:54 Pulse Ox 94 L 07/23/18 07:54 - Labs Result Diagrams: 07/26/18 05:00 07/26/18 05:00 Labs: Laboratory Results - last 24 hr 07/22/18 07/22/18 07/22/18 11:23 11:23 11:23 WBC 5.0 RBC 3.63 L Hgb 11.6 L Hct 35.2 MCV 97.1 H MCH 32.1 H MCHC 33.0 RDW 15.5 H Plt Count 95 L D MPV 9.3 Neut % (Auto) 68.0 Lymph % (Auto) 11.8 L [place] % (Auto) 16.9 H Eos % (Auto) 2.8 Baso % (Auto) 0.5 Neut # (Auto) 3.4 Lymph # (Auto) 0.6 L [place] # (Auto) 0.9 H Eos # (Auto) 0.1 Baso # (Auto) 0.0 PT INR APTT pO2 VBG pH VBG pCO2 VBG HCO3 VBG Total CO2 VBG O2 Sat (Calc) VBG Base Excess VBG Potassium Glucose Lactate FiO2 Sodium 139 Potassium 4.6 Chloride 109 H Carbon Dioxide 14 L Anion Gap 21 H BUN 94 H Creatinine 2.9 H Est GFR ( Amer) 25 Est GFR (Non-Af Amer) 21 POC Glucose (mg/dL) Random Glucose 114 H Calcium 9.1 Phosphorus 4.4 Magnesium 2.9 H Total Bilirubin 1.8 H AST 35 ALT 32 Alkaline Phosphatase 120 Ammonia NT-Pro-B Natriuret Pep Total Protein 7.2 Albumin 3.6 Globulin 3.6 Albumin/Globulin Ratio 1.0 Venous Blood Potassium Hepatitis A IgM Ab Hep Bs Antigen Hep B Core IgM Ab Hepatitis C Antibody Influenza Typ A,B (EIA) Pos for influenza a H Grp A Beta Strep Ag 07/22/18 07/22/18 07/22/18 11:23 11:23 11:35 WBC RBC Hgb Hct MCV MCH MCHC RDW Plt Count MPV Neut % (Auto) Lymph % (Auto) [place] % (Auto) Eos % (Auto) Baso % (Auto) Neut # (Auto) Lymph # (Auto) [place] # (Auto) Eos # (Auto) Baso # (Auto) PT INR APTT pO2 39 VBG pH 7.38 VBG pCO2 28 L VBG HCO3 18.7 VBG Total CO2 17.5 L VBG O2 Sat (Calc) 82.3 H VBG Base Excess -7.1 L VBG Potassium 4.5 Glucose 119 H Lactate 1.9 FiO2 21.0 Sodium 138.0 Potassium Chloride 111.0 H Carbon Dioxide Anion Gap BUN Creatinine Est GFR ( Amer) Est GFR (Non-Af Amer) POC Glucose (mg/dL) Random Glucose Calcium Phosphorus Magnesium Total Bilirubin AST ALT Alkaline Phosphatase Ammonia 42 H NT-Pro-B Natriuret Pep Total Protein Albumin Globulin Albumin/Globulin Ratio Venous Blood Potassium 4.5 Hepatitis A IgM Ab Negative Hep Bs Antigen Negative Hep B Core IgM Ab Negative Hepatitis C Antibody Negative Influenza Typ A,B (EIA) Grp A Beta Strep Ag 07/22/18 07/22/18 07/22/18 12:13 12:50 16:48 WBC RBC Hgb Hct MCV MCH MCHC RDW Plt Count MPV Neut % (Auto) Lymph % (Auto) [place] % (Auto) Eos % (Auto) Baso % (Auto) Neut # (Auto) Lymph # (Auto) [place] # (Auto) Eos # (Auto) Baso # (Auto) PT 12.6 INR 1.1 APTT 35.0 pO2 VBG pH VBG pCO2 VBG HCO3 VBG Total CO2 VBG O2 Sat (Calc) VBG Base Excess VBG Potassium Glucose Lactate FiO2 Sodium Potassium Chloride Carbon Dioxide Anion Gap BUN Creatinine Est GFR ( Amer) Est GFR (Non-Af Amer) POC Glucose (mg/dL) 130 H Random Glucose Calcium Phosphorus Magnesium Total Bilirubin AST ALT Alkaline Phosphatase Ammonia NT-Pro-B Natriuret Pep Total Protein Albumin Globulin Albumin/Globulin Ratio Venous Blood Potassium Hepatitis A IgM Ab Hep Bs Antigen Hep B Core IgM Ab Hepatitis C Antibody Influenza Typ A,B (EIA) Grp A Beta Strep Ag Negative 07/22/18 07/23/18 07/23/18 21:22 05:30 06:08 WBC RBC Hgb Hct MCV MCH MCHC RDW Plt Count MPV Neut % (Auto) Lymph % (Auto) [place] % (Auto) Eos % (Auto) Baso % (Auto) Neut # (Auto) Lymph # (Auto) [place] # (Auto) Eos # (Auto) Baso # (Auto) PT INR APTT pO2 VBG pH VBG pCO2 VBG HCO3 VBG Total CO2 VBG O2 Sat (Calc) VBG Base Excess VBG Potassium Glucose Lactate FiO2 Sodium 138 Potassium 4.2 Chloride 111 H Carbon Dioxide 14 L Anion Gap 17 BUN 87 H Creatinine 2.9 H Est GFR ( Amer) 25 Est GFR (Non-Af Amer) 21 POC Glucose (mg/dL) 195 H 159 H Random Glucose 148 H Calcium 9.0 Phosphorus Magnesium Total Bilirubin AST ALT Alkaline Phosphatase Ammonia NT-Pro-B Natriuret Pep 46292 H Total Protein Albumin Globulin Albumin/Globulin Ratio Venous Blood Potassium Hepatitis A IgM Ab Hep Bs Antigen Hep B Core IgM Ab Hepatitis C Antibody Influenza Typ A,B (EIA) Grp A Beta Strep Ag Assessment & Plan (1) Pneumonia Status: Acute Priority: High (2) Influenza A Status: Acute Priority: High (3) 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 May need some aerosol therapy for acute bronchospasm associated with the above. - Date & Time Date: 07/23/18 Time: 08:57
[2018-07-23] MEDS: Dextrose 5%/0.45% NS 1,000 ML IV SCH (08:34)
[2018-07-23] MEDS: Enoxaparin 30 mg Syringe SC SCH (08:35)
[2018-07-23] MEDS: Insulin Regular 100 units/ml SC SCH ×4 (08:35→22:45)
[2018-07-23] MEDS: Azithromycin 500 MG in Sodium Chloride 0.9% 250 ML IVPB SCH (08:36)
--- NOTE | 2018-07-23 10:06 | CP.PCM.PN ---
<Garrett Jasso - Last Filed: 07/23/18 11:00> Subjective - Date & Time of Evaluation Date of Evaluation: 07/23/18 Time of Evaluation: 07:15 - Subjective Subjective: Pt seen and examined at bedside. Denies acute overnight events. Reports decrease in cough. Reports abdominal gas. Objective - Vital Signs/Intake and Output Vital Signs (last 24 hours): Temp Pulse Resp BP Pulse Ox 98.3 F 83 18 167/95 H 94 L 07/23/18 07:54 07/23/18 07:54 07/23/18 07:54 07/23/18 07:54 07/23/18 07:54 - Medications Medications: Current Medications Dextrose (Dextrose 50% Inj) 0 ml IV STAT PRN; Protocol PRN Reason: Hypoglycemia Protocol Dextrose (Glutose 15) 0 gm PO ONCE PRN; Protocol PRN Reason: Hypoglycemia Protocol Dicyclomine HCl (Bentyl) 10 mg PO Q8 PRN PRN Reason: abdominal pain/cramps Enoxaparin Sodium (Lovenox) 30 mg SC DAILY [facility]; Protocol Last Admin: 07/23/18 08:35 Dose: 30 mg Glucagon (Glucagen Diagnostic Kit) 0 mg IM STAT PRN; Protocol PRN Reason: Hypoglycemia Protocol Dextrose/Sodium Chloride (Dextrose 5%/0.45% Ns 1000 Ml) 1,000 mls @ 100 mls/hr IV .Q10H [facility] Stop: 07/23/18 11:35 Last Admin: 07/23/18 08:34 Dose: 100 mls/hr Azithromycin 500 mg/ Sodium (Chloride) 250 mls @ 250 mls/hr IVPB DAILY [facility]; Protocol Last Admin: 07/23/18 08:36 Dose: 250 mls/hr Piperacillin Sod/Tazobactam (Sod 2.25 gm/ Sodium Chloride) 100 mls @ 100 mls/hr IVPB Q6 [facility]; Protocol Last Admin: 07/23/18 03:34 Dose: 100 mls/hr Insulin Human Regular (Humulin R) 0 units SC ACHS [facility]; Protocol Last Admin: 07/23/18 08:35 Dose: 1 unit Morphine Sulfate (Morphine) 2 mg IVP Q6 PRN PRN Reason: Pain, Mild (1-3) Morphine Sulfate (Morphine) 4 mg IVP Q4 PRN PRN Reason: Pain, moderate (4-7) Oseltamivir Phosphate (Tamiflu Cap) 30 mg PO BID [facility]; Protocol Last Admin: 07/23/18 08:36 Dose: 30 mg Sodium Bicarbonate (Sodium Bicarbonate Tab) 650 mg PO Q6 [facility] Last Admin: 07/23/18 03:37 Dose: 650 mg - Labs Labs: 07/22/18 11:23 07/23/18 05:30 PT 12.6 Seconds (9.8-13.1) 07/22/18 12:13 INR 1.1 07/22/18 12:13 APTT 35.0 Seconds (25.6-37.1) 07/22/18 12:13 - Constitutional Appears: No Acute Distress - Eye Exam Eye Exam: EOMI - ENT Exam ENT Exam: Mucous Membranes Moist - Respiratory Exam Respiratory Exam: Wheezes - Cardiovascular Exam Cardiovascular Exam: +S1, +S2 - GI/Abdominal Exam GI & Abdominal Exam: Distended (Ascites), Soft, Normal Bowel Sounds - Neurological Exam Neurological Exam: Alert, Awake, CN II-XII Intact, Oriented x3 - Psychiatric Exam Psychiatric exam: Normal Affect, Normal Mood Assessment and Plan - Assessment and Plan (Free Text) Assessment: 88 yo M with pmxhx of Afib, Diabetes, HTN, liver cirrhosis, celiac disease admitted for pneumonia, influenza and acute kidney injury. Plan: CXR: R pleural effusions CT chest/abdo/pelvis: 1. Active CHF suggested mild right and minimal left pleura l effusions noted. Cardiomegaly. Pulmonary vascular congestion. No pericardial effusion. 2. Limited patchy atelectasis or infiltrate right middle lobe with limited atelectasis favored at the dependent bilateral lower lobes and the lingula. 3. Cirrhosis with limited gastrohepatic ligament varices. Abdominal pelvic ascites felt to be related to cirrhosis. Splenomegaly to 15.9 cm, likely related to cirrhosis and possible hepatofugal blood flow. 4. Borderline segmental colitis descending colon. 5. Enlarged prostate gland. ECHO: pending Blood culture: pending Urine culture: pending CKD stage 3 -BUN: 94>87, Cr: 2.9>2.9 -Nephrology: Dr. Orozco: d/c metformin, NO WENDI/ARB, IVF: d5 1/2 ns, , PTH, phos, uric acid, 25% 50 cc albuminq q12; UA, spot urine (cr and protein): pending -IVF: D5 1/2 NS @ 100 -Renal diet: gluten free -f/u labs above Influenza A -Tamiflu 30 mg BID (renal dose) -Isolation precaution: droplet Liver cirrhosis -with abdominal ascites and splenomegaly -Pt states was incidentally found on prior CT abdo -LFT: wnl -GI: Dr. Leo: further recs appreciated -Hepatitis: negative -f/u LFT R pleural effusion -cxr -chronic -R sided -DDX PNA -Pulmonology: Dr. Person: further recs appreciated; -IVABX: Azithromycin and Zosyn CHF -Acute: UNSPECIFIED pending ECHO for further definition -BNP: [id number] -f/u ECHO Afib -NSR with PACs and benign PVCs -Tele: cardiac catheterization technician -hx of eliquis: d/c due to + heme in stool -Cardiology: Dr. Ca: resume metoprolol; hold avapro; ECHO HTN -normotensive -HCTZ and Avapro recently discontinued by Dr. Ca -Cardiology: Dr. Ca: further recs appreciated -c/w metoprolol -continue to monitor BP -Will give antihypertensive (sparing kidneys) DM -Metformin held; -Accuchecks -ICS -hypoglycemia protocol Celiac disease; chronic -Renal diet with gluten free DVT prophylaxis -SCD -Lovenox 30 mg sc Case and plan d/w Dr. Alberto Jasso MD PGY2 <Paulette Dominguez - Last Filed: 07/23/18 15:49> Objective - Vital Signs/Intake and Output Vital Signs (last 24 hours): Temp Pulse Resp BP Pulse Ox 97.7 F 91 H 18 171/93 H 99 07/23/18 12:00 07/23/18 12:45 07/23/18 12:00 07/23/18 12:47 07/23/18 12:00 - Medications Medications: Current Medications Dextrose (Dextrose 50% Inj) 0 ml IV STAT PRN; Protocol PRN Reason: Hypoglycemia Protocol Dextrose (Glutose 15) 0 gm PO ONCE PRN; Protocol PRN Reason: Hypoglycemia Protocol Dicyclomine HCl (Bentyl) 10 mg PO Q8 PRN PRN Reason: abdominal pain/cramps Enoxaparin Sodium (Lovenox) 30 mg SC DAILY [facility]; Protocol Last Admin: 07/23/18 08:35 Dose: 30 mg Glucagon (Glucagen Diagnostic Kit) 0 mg IM STAT PRN; Protocol PRN Reason: Hypoglycemia Protocol Azithromycin 500 mg/ Sodium (Chloride) 250 mls @ 250 mls/hr IVPB DAILY [facility]; Protocol Last Admin: 07/23/18 08:36 Dose: 250 mls/hr Piperacillin Sod/Tazobactam (Sod 2.25 gm/ Sodium Chloride) 100 mls @ 100 mls/hr IVPB Q6 [facility]; Protocol Last Admin: 07/23/18 10:13 Dose: 100 mls/hr Insulin Human Regular (Humulin R) 0 units SC ACHS [facility]; Protocol Last Admin: 07/23/18 12:45 Dose: 1 unit Levalbuterol HCl (Xopenex) 1.25 mg INH RQ8 PRN PRN Reason: Shortness of Breath Metoprolol Succinate (Toprol Xl) 50 mg PO DAILY [facility] Last Admin: 07/23/18 12:45 Dose: 50 mg Morphine Sulfate (Morphine) 2 mg IVP Q6 PRN PRN Reason: Pain, Mild (1-3) Morphine Sulfate (Morphine) 4 mg IVP Q4 PRN PRN Reason: Pain, moderate (4-7) Oseltamivir Phosphate (Tamiflu Cap) 30 mg PO BID [facility]; Protocol Last Admin: 07/23/18 08:36 Dose: 30 mg Simethicone (Mylicon Liq) 40 mg PO Q6 PRN PRN Reason: Flatulence Sodium Bicarbonate (Sodium Bicarbonate Tab) 650 mg PO Q6 [facility] Last Admin: 07/23/18 10:14 Dose: 650 mg - Labs Labs: 07/22/18 11:23 07/23/18 05:30 PT 12.6 Seconds (9.8-13.1) 07/22/18 12:13 INR 1.1 07/22/18 12:13 APTT 35.0 Seconds (25.6-37.1) 07/22/18 12:13 Attending/Attestation - Attestation I have personally seen and examined this patient.: Yes I have fully participated in the care of the patient.: Yes I have reviewed all pertinent clinical information, including history, physical exam and plan: Yes Notes (Text): Influenza A Pneumonia, prob bacterial KARMEN on CKD Stage II Liver cirrhosis sec to FENG Pleural Effusion Ascites A Fib, chronic DM Type II HTN Celiac Dis - cont Tamiflu ( renal dose0 - cont IV Zosyn, Azithro - Nephro, Pulm and Cardio consulted - cont Metoprolol - start Xopenex - pt has sl wheeze - cont Sodium Bicarb
[2018-07-23] MEDS ORDERED: Simethicone 40 mg/0.6 ml Liquid (30 ml) PO PRN (10:14)
--- NOTE | 2018-07-23 10:40 | CP.PCM.PN ---
Subjective - Date & Time of Evaluation Date of Evaluation: 07/23/18 Time of Evaluation: 09:00 - Subjective Subjective: FEELS A LITTLE STRONGER TODAY NO CHEST PAIN STILL WITH COUGH Objective - Vital Signs/Intake and Output Vital Signs (last 24 hours): Temp Pulse Resp BP Pulse Ox 98.3 F 83 18 167/95 H 94 L 07/23/18 07:54 07/23/18 07:54 07/23/18 07:54 07/23/18 07:54 07/23/18 07:54 - Medications Medications: Current Medications Dextrose (Dextrose 50% Inj) 0 ml IV STAT PRN; Protocol PRN Reason: Hypoglycemia Protocol Dextrose (Glutose 15) 0 gm PO ONCE PRN; Protocol PRN Reason: Hypoglycemia Protocol Dicyclomine HCl (Bentyl) 10 mg PO Q8 PRN PRN Reason: abdominal pain/cramps Enoxaparin Sodium (Lovenox) 30 mg SC DAILY [facility]; Protocol Last Admin: 07/23/18 08:35 Dose: 30 mg Glucagon (Glucagen Diagnostic Kit) 0 mg IM STAT PRN; Protocol PRN Reason: Hypoglycemia Protocol Dextrose/Sodium Chloride (Dextrose 5%/0.45% Ns 1000 Ml) 1,000 mls @ 100 mls/hr IV .Q10H [facility] Stop: 07/23/18 11:35 Last Admin: 07/23/18 08:34 Dose: 100 mls/hr Azithromycin 500 mg/ Sodium (Chloride) 250 mls @ 250 mls/hr IVPB DAILY [facility]; Protocol Last Admin: 07/23/18 08:36 Dose: 250 mls/hr Piperacillin Sod/Tazobactam (Sod 2.25 gm/ Sodium Chloride) 100 mls @ 100 mls/hr IVPB Q6 [facility]; Protocol Last Admin: 07/23/18 10:13 Dose: 100 mls/hr Insulin Human Regular (Humulin R) 0 units SC ACHS [facility]; Protocol Last Admin: 07/23/18 08:35 Dose: 1 unit Morphine Sulfate (Morphine) 2 mg IVP Q6 PRN PRN Reason: Pain, Mild (1-3) Morphine Sulfate (Morphine) 4 mg IVP Q4 PRN PRN Reason: Pain, moderate (4-7) Oseltamivir Phosphate (Tamiflu Cap) 30 mg PO BID [facility]; Protocol Last Admin: 07/23/18 08:36 Dose: 30 mg Simethicone (Mylicon Liq) 40 mg PO Q6 PRN PRN Reason: Flatulence Sodium Bicarbonate (Sodium Bicarbonate Tab) 650 mg PO Q6 [facility] Last Admin: 07/23/18 10:14 Dose: 650 mg - Labs Labs: 07/22/18 11:23 07/23/18 05:30 PT 12.6 Seconds (9.8-13.1) 07/22/18 12:13 INR 1.1 07/22/18 12:13 APTT 35.0 Seconds (25.6-37.1) 07/22/18 12:13 - Respiratory Exam Respiratory Exam: Rales, Rhonchi - Cardiovascular Exam Cardiovascular Exam: REGULAR RHYTHM, +S1, +S2 - Extremities Exam Additional comments: STILL WITH EDEMA - Additional Findings 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
--- NOTE | 2018-07-23 11:14 | CP.PCM.PN ---
Subjective - Date & Time of Evaluation Date of Evaluation: 07/23/18 Time of Evaluation: 11:14 - Subjective Subjective: Patient sitting up in bed awake he stated that he is feeling somewhat better and coughing less no diarrhea reported although he has a poor appetite and his at the bedside No urine output reported or recorded and no urine test has been done and I discussed with the nurse at the bedside to record the daily weight and intake and output Objective - Vital Signs/Intake and Output Vital Signs (last 24 hours): Temp Pulse Resp BP Pulse Ox 98.3 F 83 18 167/95 H 94 L 07/23/18 07:54 07/23/18 07:54 07/23/18 07:54 07/23/18 07:54 07/23/18 07:54 - Medications Medications: Current Medications Dextrose (Dextrose 50% Inj) 0 ml IV STAT PRN; Protocol PRN Reason: Hypoglycemia Protocol Dextrose (Glutose 15) 0 gm PO ONCE PRN; Protocol PRN Reason: Hypoglycemia Protocol Dicyclomine HCl (Bentyl) 10 mg PO Q8 PRN PRN Reason: abdominal pain/cramps Enoxaparin Sodium (Lovenox) 30 mg SC DAILY [facility]; Protocol Last Admin: 07/23/18 08:35 Dose: 30 mg Glucagon (Glucagen Diagnostic Kit) 0 mg IM STAT PRN; Protocol PRN Reason: Hypoglycemia Protocol Dextrose/Sodium Chloride (Dextrose 5%/0.45% Ns 1000 Ml) 1,000 mls @ 100 mls/hr IV .Q10H [facility] Stop: 07/23/18 11:35 Last Admin: 07/23/18 08:34 Dose: 100 mls/hr Azithromycin 500 mg/ Sodium (Chloride) 250 mls @ 250 mls/hr IVPB DAILY [facility]; Protocol Last Admin: 07/23/18 08:36 Dose: 250 mls/hr Piperacillin Sod/Tazobactam (Sod 2.25 gm/ Sodium Chloride) 100 mls @ 100 mls/hr IVPB Q6 [facility]; Protocol Last Admin: 07/23/18 10:13 Dose: 100 mls/hr Insulin Human Regular (Humulin R) 0 units SC ACHS [facility]; Protocol Last Admin: 07/23/18 08:35 Dose: 1 unit Metoprolol Succinate (Toprol Xl) 50 mg PO DAILY [facility] Morphine Sulfate (Morphine) 2 mg IVP Q6 PRN PRN Reason: Pain, Mild (1-3) Morphine Sulfate (Morphine) 4 mg IVP Q4 PRN PRN Reason: Pain, moderate (4-7) Oseltamivir Phosphate (Tamiflu Cap) 30 mg PO BID [facility]; Protocol Last Admin: 07/23/18 08:36 Dose: 30 mg Simethicone (Mylicon Liq) 40 mg PO Q6 PRN PRN Reason: Flatulence Sodium Bicarbonate (Sodium Bicarbonate Tab) 650 mg PO Q6 [facility] Last Admin: 07/23/18 10:14 Dose: 650 mg - Labs Labs: 07/22/18 11:23 07/23/18 05:30 PT 12.6 Seconds (9.8-13.1) 07/22/18 12:13 INR 1.1 07/22/18 12:13 APTT 35.0 Seconds (25.6-37.1) 07/22/18 12:13 - Constitutional Appears: No Acute Distress - Eye Exam Eye Exam: Conjunctival injection - ENT Exam ENT Exam: Mucous Membranes Moist - Neck Exam Neck Exam: absent: Lymphadenopathy - Respiratory Exam Respiratory Exam: Rhonchi - Cardiovascular Exam Cardiovascular Exam: absent: Gallop, JVD, Rubs - GI/Abdominal Exam GI & Abdominal Exam: Soft, Normal Bowel Sounds - Extremities Exam Extremities Exam: absent: Calf Tenderness - Back Exam Back Exam: absent: CVA tenderness (L), CVA tenderness (R) - Neurological Exam Neurological Exam: Alert - Psychiatric Exam Psychiatric exam: Normal Affect - Skin Skin Exam: absent: Cyanosis Assessment and Plan (1) KARMEN (acute kidney injury) Assessment & Plan: acute kidney injury possible from dehydration also patient was taking hydrochlorothiazide and WENDI inhibitor super imposed on chronic kidney disease perhaps stage III from the history when serum creatinine I am told in the range of 1.7 . Patient has abdominal ascites and leg edema with a history of liver cirrhosis Hypoalbuminemia pneumonia Chronic celiac disease history Diabetes mellitus Hypertension Recommendation Continue gentle hydration patient has very poor appetite according to the patie nt and the at the bedside. Stat urinalysis and spot urine for sodium osmolarity creatinine and protein which has not been done yet Serum creatinine about the same BUN is slightly coming down We will give small dose of Lasix 20 mg stat dose now because of the some congestion the patient experience and unfortunately we do not have urine output I spoke to the nurse to record intake output and daily weight Antibiotics as per primary team considering low GFR Albumin intravenously intermittently try to diurese with the Lasix to alleviate some of congestion Discussed with Dr. Ca and Dr. Person Status: Chronic
[2018-07-23] MEDS ORDERED: Levalbuterol 1.25 MG/3 ML Inhal Soln UD INH PRN (11:32)
[2018-07-23 11:50] LABS: URIC ACID 11.1 mg/Dl (3.5-8.5)
[2018-07-23] MEDS: Metoprolol Succinate 50 mg XL Tab PO SCH (12:45)
[2018-07-23 18:49] LABS: FOLATE 14.2 ng/mL
--- NOTE | 2018-07-23 20:34 | CARD ---
APPROVED REPORT Date of service: 07/23/2018 EXAM: Two-dimensional and M-mode echocardiogram with Doppler and color Doppler. Other Information Quality : GoodRhythm : NSR INDICATION LV Function:SystolicDiastolic 2D DIMENSIONS IVSd1.18 (0.7-1.1cm)LVDd5.31 (3.9-5.9cm) LVOT Diameter2.27 (1.8-2.4cm)PWd0.95 (0.7-1.1cm) IVSs1.13 (0.8-1.2cm)LVDs4.94 (2.5-4.0cm) FS (%) 7.0 %PWs0.88 (0.8-1.2cm) M-Mode DIMENSIONS Left Atrium (MM)5.43 (2.5-4.0cm)IVSd0.79 (0.7-1.1cm) Aortic Root3.51 (2.2-3.7cm)LVDd7.35 (4.0-5.6cm) Aortic Cusp Exc.1.36 (1.5-2.0cm)PWd0.79 (0.7-1.1cm) IVSs0.96 cmFS (%) 23 % LVDs5.69 (2.0-3.8cm)PWs0.89 cm Aortic Valve AoV Peak Hovoehxc525.8cm/sAoV VTI44.4cmAO Peak GR.28mmHg LVOT Peak Ebdzvpiz06.5cm/sLVOT VTI13.77cmAO Mean GR.16mmHg CARY (VMAX)0.47zl8SYE (VTI)0.61cm2 Mitral Valve E/A ratio0.0 TDI E/Lateral E'0.0E/Medial E'0.0 Tricuspid Valve TR Peak [id number]/sRAP [id number] Peak Gr.52mmHg [id number] LEFT VENTRICLE The left ventricle is normal size. There is borderline concentric left ventricular hypertrophy. The systolic function is moderately impaired. The estimated ejection fraction is 35-40% There is moderate global hypokinesis of the left ventricle. The left ventricular diastolic function assessment is inconclusive. No left ventricle thrombus noted on this study. There is no ventricular septal defect visualized. There is no left ventricular aneurysm. There is no mass noted in the left ventricle. RIGHT VENTRICLE The right ventricle is normal size. There is normal right ventricular wall thickness. The right ventricular systolic function is normal. ATRIA The left atrium is severely dilated. The right atrium size is normal. The interatrial septum is intact with no evidence for an atrial septal defect. AORTIC VALVE The aortic valve is normal in structure. Calcified leaflets with reduced cusp seperation. Mild aortic regurgitation is present. There is mild to moderate aortic valvular stenosis. Peak aortic velocity is - 3 m/sec with calculated CARY 1.3 cm2. There is no aortic valvular vegetation. MITRAL VALVE The mitral valve is normal in structure. There is no evidence of mitral valve prolapse. There is no mitral valve stenosis. There is moderate to severe mitral valve regurgitation noted. TRICUSPID VALVE The tricuspid valve is normal in structure. There is mild tricuspid valve regurgitation noted. RVSP is calculated at 60 mm Hg, consistent with moderate pulmonary HTN. There is no tricuspid valve prolapse or vegetation. There is no tricuspid valve stenosis. PULMONIC VALVE The pulmonary valve is normal in structure. There is no pulmonic valvular regurgitation. There is no pulmonic valvular stenosis. GREAT VESSELS The aortic root is normal in size. The ascending aorta is normal in size. The pulmonary artery is normal. The IVC is normal in size and collapses >50% with inspiration. PERICARDIAL EFFUSION There is no pericardial effusion. There is no pleural effusion. <Conclusion> The LV systolic function is moderately impaired. The estimated ejection fraction is 35-40% There is moderate global hypokinesis of the left ventricle. The left ventricular diastolic function assessment is inconclusive. The left atrium is severely dilated. There is mild to moderate aortic valvular stenosis. Peak aortic velocity is - 3 m/sec with calculated CARY 1.3 cm2. There is moderate to severe mitral valve regurgitation noted. There is mild tricuspid valve regurgitation noted. RVSP is calculated at 60 mm Hg, consistent with moderate pulmonary HTN. The IVC is normal in size and collapses >50% with inspiration.
[2018-07-23 21:21] LABS: SQUAMOUS EPITHIAL 1 /hpf (0-5); URINE BILIRUBIN NEGATIVE (NEGATIVE); URINE BLOOD MODERATE (NEGATIVE); URINE CLARITY CLEAR (Clear); URINE COLOR YELLOW (YELLOW); URINE GLUCOSE (UA) NEG (NEGATIVE); URINE LEUKOCYTE ESTERASE NEG Leu/uL (Negative); URINE PROTEIN 30 mg/dL (NEGATIVE); URINE UROBILINOGEN 0.2-1.0 mg/dL (0.2-1.0)
[2018-07-23 21:24] LABS: CREATININE, RANDOM URINE 63.4 mg/dL
--- NOTE | 2018-07-23 21:50 | CP.PCM.CON ---
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 Patient has h/o gluten sensitivity though he denies celiac disease. When consuming gluten has skin rash. About 6 months ago noted pedal edema and a few months ago was diagnosed with liver cirrhosis presumably due to fatty liver on CT scan . Has recent onset DM and atrial arrhythmia. Increasing weakness and cough lately. Review of Systems - Constitutional Constitutional: absent: Excessive Sweating - EENT Eyes: absent: Blurred Vision Ears: absent: Ear Pain - Cardiovascular Cardiovascular: absent: Chest Pain - Respiratory Respiratory: absent: Hemoptysis - Gastrointestinal Gastrointestinal: Bloating - Genitourinary Genitourinary: absent: Change in Urinary Stream Past Patient History - Infectious Disease Hx of Infectious Diseases: None - Past Medical History & Family History Past Medical History?: Yes - Past Social History Alcohol: None Drugs: Denies - CARDIAC Hx Atrial Fibrillation: Yes - PULMONARY Hx Respiratory Disorders: No - NEUROLOGICAL Hx Neurological Disorder: No - HEENT Other/Comment: [place] - RENAL Hx Chronic Kidney Disease: Yes - ENDOCRINE/METABOLIC Hx Diabetes Mellitus Type 2: Yes - HEMATOLOGICAL/ONCOLOGICAL Hx Cirrhosis: Yes Hx Human Immunodeficiency Virus (HIV): No - INTEGUMENTARY Hx Dermatological Problems: No - MUSCULOSKELETAL/RHEUMATOLOGICAL Hx Falls: No - GASTROINTESTINAL Hx Gastrointestinal Disorders: Yes (Celiac) Other/Comment: ?gluten enteropathy - GENITOURINARY/GYNECOLOGICAL Hx Genitourinary Disorders: No - PSYCHIATRIC Hx Psychophysiologic Disorder: No Hx Substance Use: No - SURGICAL HISTORY Hx Surgeries: Yes Hx Cholecystectomy: Yes Hx Herniorrhaphy: Yes (x2) Meds Allergies/Adverse Reactions: Allergies Allergy/AdvReac Type Severity Reaction Status Date / Time No Known Allergies Allergy Verified 07/22/18 10:50 - Medications Medications: Current Medications Dextrose (Dextrose 50% Inj) 0 ml IV STAT PRN; Protocol PRN Reason: Hypoglycemia Protocol Dextrose (Glutose 15) 0 gm PO ONCE PRN; Protocol PRN Reason: Hypoglycemia Protocol Dicyclomine HCl (Bentyl) 10 mg PO Q8 PRN PRN Reason: abdominal pain/cramps Enoxaparin Sodium (Lovenox) 30 mg SC DAILY [facility]; Protocol Last Admin: 07/23/18 08:35 Dose: 30 mg Glucagon (Glucagen Diagnostic Kit) 0 mg IM STAT PRN; Protocol PRN Reason: Hypoglycemia Protocol Azithromycin 500 mg/ Sodium (Chloride) 250 mls @ 250 mls/hr IVPB DAILY [facility]; Protocol Last Admin: 07/23/18 08:36 Dose: 250 mls/hr Piperacillin Sod/Tazobactam (Sod 2.25 gm/ Sodium Chloride) 100 mls @ 100 mls/hr IVPB Q6 [facility]; Protocol Last Admin: 07/23/18 16:39 Dose: 100 mls/hr Insulin Human Regular (Humulin R) 0 units SC ACHS [facility]; Protocol Last Admin: 07/23/18 16:37 Dose: 2 unit Levalbuterol HCl (Xopenex) 1.25 mg INH RQ8 PRN PRN Reason: Shortness of Breath Metoprolol Succinate (Toprol Xl) 50 mg PO DAILY [facility] Last Admin: 07/23/18 12:45 Dose: 50 mg Morphine Sulfate (Morphine) 2 mg IVP Q6 PRN PRN Reason: Pain, Mild (1-3) Morphine Sulfate (Morphine) 4 mg IVP Q4 PRN PRN Reason: Pain, moderate (4-7) Oseltamivir Phosphate (Tamiflu Cap) 30 mg PO BID [facility]; Protocol Last Admin: 07/23/18 16:38 Dose: 30 mg Simethicone (Mylicon Liq) 40 mg PO Q6 PRN PRN Reason: Flatulence Sodium Bicarbonate (Sodium Bicarbonate Tab) 650 mg PO Q6 [facility] Last Admin: 07/23/18 16:38 Dose: 650 mg Physical Exam - Head Exam Head Exam: NORMAL INSPECTION - Eye Exam Eye Exam: Normal appearance - ENT Exam ENT Exam: Mucous Membranes Moist - Neck Exam Neck exam: Positive for: Normal Inspection - Respiratory Exam Respiratory Exam: Clear to Auscultation Bilateral - Cardiovascular Exam Cardiovascular Exam: REGULAR RHYTHM, +S1, +S2 - GI/Abdominal Exam GI & Abdominal Exam: Distended, Normal Bowel Sounds, Soft - Extremities Exam Extremities exam: Positive for: pedal edema Results - Vital Signs Recent Vital Signs: Last Vital Signs Temp 97.5 F L 07/23/18 18:46 Pulse 77 07/23/18 18:46 Resp 20 07/23/18 18:46 BP 169/75 H 07/23/18 18:46 Pulse Ox 96 07/23/18 18:46 - Labs Result Diagrams: 07/22/18 11:23 07/23/18 05:30 Labs: Laboratory Results - last 24 hr 07/22/18 07/23/18 07/23/18 13:27 05:30 05:30 Sodium 138 Potassium 4.2 Chloride 111 H Carbon Dioxide 14 L Anion Gap 17 BUN 87 H Creatinine 2.9 H Est GFR ( Amer) 25 Est GFR (Non-Af Amer) 21 POC Glucose (mg/dL) Random Glucose 148 H Uric Acid Calcium 9.0 Phosphorus NT-Pro-B Natriuret Pep 58699 H Vitamin B12 596 Folate 14.2 Procalcitonin PTH Intact Whole Molec 42 Urine Color Urine Clarity Urine pH Ur Specific [place] Urine Protein Urine Glucose (UA) Urine Ketones Urine Blood Urine Nitrate Urine Bilirubin Urine Urobilinogen Ur Leukocyte Esterase Urine RBC (Auto) Urine Microscopic WBC Ur Squamous Epith Cells Urine Osmolality Ur Random Creatinine U Random Total Protein Ur Random Sodium 07/23/18 07/23/18 07/23/18 06:08 10:34 10:50 Sodium Potassium Chloride Carbon Dioxide Anion Gap BUN Creatinine Est GFR ( Amer) Est GFR (Non-Af Amer) POC Glucose (mg/dL) 159 H 152 H Random Glucose Uric Acid Calcium Phosphorus NT-Pro-B Natriuret Pep Vitamin B12 Folate Procalcitonin 0.26 PTH Intact Whole Molec Urine Color Urine Clarity Urine pH Ur Specific [place] Urine Protein Urine Glucose (UA) Urine Ketones Urine Blood Urine Nitrate Urine Bilirubin Urine Urobilinogen Ur Leukocyte Esterase Urine RBC (Auto) Urine Microscopic WBC Ur Squamous Epith Cells Urine Osmolality Ur Random Creatinine U Random Total Protein Ur Random Sodium 07/23/18 07/23/18 07/23/18 10:50 16:13 21:00 Sodium Potassium Chloride Carbon Dioxide Anion Gap BUN Creatinine Est GFR ( Amer) Est GFR (Non-Af Amer) POC Glucose (mg/dL) 238 H Random Glucose Uric Acid 11.1 H Calcium Phosphorus 4.4 NT-Pro-B Natriuret Pep Vitamin B12 Folate Procalcitonin PTH Intact Whole Molec Urine Color Urine Clarity Urine pH Ur Specific [place] Urine Protein Urine Glucose (UA) Urine Ketones Urine Blood Urine Nitrate Urine Bilirubin Urine Urobilinogen Ur Leukocyte Esterase Urine RBC (Auto) Urine Microscopic WBC Ur Squamous Epith Cells Urine Osmolality 432 Ur Random Creatinine 63.4 U Random Total Protein 61.0 H Ur Random Sodium 68 07/23/18 21:00 Sodium Potassium Chloride Carbon Dioxide Anion Gap BUN Creatinine Est GFR ( Amer) Est GFR (Non-Af Amer) POC Glucose (mg/dL) Random Glucose Uric Acid Calcium Phosphorus NT-Pro-B Natriuret Pep Vitamin B12 Folate Procalcitonin PTH Intact Whole Molec Urine Color Yellow Urine Clarity Clear Urine pH 5.0 Ur Specific [place] 1.013 Urine Protein 30 Urine Glucose (UA) Neg Urine Ketones Negative Urine Blood Moderate Urine Nitrate Negative Urine Bilirubin Negative Urine Urobilinogen 0.2-1.0 Ur Leukocyte Esterase Neg Urine RBC (Auto) 16 H Urine Microscopic WBC 4 Ur Squamous Epith Cells 1 Urine Osmolality Ur Random Creatinine U Random Total Protein Ur Random Sodium Assessment & Plan (1) 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 Has h/o cirrhosis with nodular liver on CT and Platetlet count somewhat depressed at 95k. Ammomia level is normal, serum albumin slightly low at 3.6 and Bili just slightly up. Continue current plan as per renal for rehydration/diuresis. At some point when clinically stable upper endoscopy to check for varices is reasonable. Treatment of FENG through control of blood sugar and CHF. Status: Chronic Priority: High
[2018-07-24 05:33] LABS: BASO % 0.4 % (0.0-2.0); EOS # 0.3 K/uL (0.0-0.7); EOS % 5.9 % (0.0-4.0); HEMOGLOBIN 11.4 g/dL (12.0-18.0); LYMPH # 0.5 K/uL (1.0-4.3); LYMPH % 9.8 % (20.0-40.0); MEAN CELL VOLUME 97.7 fl (80.0-94.0); MEAN CORPUSCULAR HEMOGLOBIN 32.4 pg (27.0-31.0); MEAN CORPUSCULAR HGB CONC 33.2 g/dL (33.0-37.0); MEAN PLATELET VOLUME 10.1 fl (7.2-11.7); MONO # 0.8 K/uL (0.0-0.8); MONO % 14.5 % (0.0-10.0); NEUT # 3.8 K/uL (1.8-7.0); NEUT % 69.4 % (50.0-75.0); RED CELL DISTRIBUTION WIDTH 15.2 % (11.5-14.5); WHITE BLOOD COUNT 5.5 K/uL (4.8-10.8)
[2018-07-24 05:34] LABS: PLATELET COUNT 87 K/uL (130-400)
[2018-07-24 05:52] LABS: ALB/GLOB RATIO 1.1 (1.0-2.1); ALBUMIN 3.6 g/dL (3.5-5.0); CALCIUM 8.8 mg/dL (8.4-10.2)
[2018-07-24] MEDS: Azithromycin 500 MG in Sodium Chloride 0.9% 250 ML IVPB SCH (09:20)
[2018-07-24] MEDS: Insulin Regular 100 units/ml SC SCH ×4 (09:20→21:11)
[2018-07-24] MEDS: Metoprolol Succinate 50 mg XL Tab PO SCH (09:21)
[2018-07-24] MEDS: Enoxaparin 30 mg Syringe SC SCH (09:21)
[2018-07-24 10:18] LABS: EOSINOPHIL 6 % (0-7); LYMPHOCYTE 12 % (20-50); MONOCYTE 12 % (0-10); NEUTROPHIL 70 % (42-75); PLATELET ESTIMATE DECREASED (NORMAL); TOTAL CELLS COUNTED 100
[2018-07-24 10:20] LABS: ANISOCYTOSIS SLIGHT; HYPOCHROMIC SLIGHT; OVALOCYTES SLIGHT; SCHISTOCYTES SLIGHT; TEARDROP CELLS SLIGHT
--- NOTE | 2018-07-24 10:45 | CP.PCM.PN ---
<Garrett Jasso - Last Filed: 07/24/18 11:08> Subjective - Date & Time of Evaluation Date of Evaluation: 07/24/18 Time of Evaluation: 07:30 - Subjective Subjective: Dr. Ascencio was seen and evaluated at bedside this AM. No acute overnight events. Pt reports improvement in breathing. Decrease coughing. Regaining strength with decrease in bilateral lower extremity swelling. Objective - Vital Signs/Intake and Output Vital Signs (last 24 hours): Temp Pulse Resp BP Pulse Ox 97.8 F 73 18 149/73 94 L 07/24/18 08:00 07/24/18 08:00 07/24/18 08:00 07/24/18 08:00 07/24/18 08:00 Intake and Output: 07/24/18 07/24/18 06:59 18:59 Intake Total 200 Output Total 300 Balance -100 - Medications Medications: Current Medications Dextrose (Dextrose 50% Inj) 0 ml IV STAT PRN; Protocol PRN Reason: Hypoglycemia Protocol Dextrose (Glutose 15) 0 gm PO ONCE PRN; Protocol PRN Reason: Hypoglycemia Protocol Dicyclomine HCl (Bentyl) 10 mg PO Q8 PRN PRN Reason: abdominal pain/cramps Enoxaparin Sodium (Lovenox) 30 mg SC DAILY [facility]; Protocol Last Admin: 07/24/18 09:21 Dose: 30 mg Glucagon (Glucagen Diagnostic Kit) 0 mg IM STAT PRN; Protocol PRN Reason: Hypoglycemia Protocol Azithromycin 500 mg/ Sodium (Chloride) 250 mls @ 250 mls/hr IVPB DAILY [facility]; Protocol Last Admin: 07/24/18 09:20 Dose: 250 mls/hr Insulin Human Regular (Humulin R) 0 units SC ACHS [facility]; Protocol Last Admin: 07/24/18 09:20 Dose: 1 unit Levalbuterol HCl (Xopenex) 1.25 mg INH RQ8 PRN PRN Reason: Shortness of Breath Metoprolol Succinate (Toprol Xl) 50 mg PO DAILY [facility] Last Admin: 07/24/18 09:21 Dose: 50 mg Morphine Sulfate (Morphine) 2 mg IVP Q6 PRN PRN Reason: Pain, Mild (1-3) Morphine Sulfate (Morphine) 4 mg IVP Q4 PRN PRN Reason: Pain, moderate (4-7) Oseltamivir Phosphate (Tamiflu Cap) 30 mg PO BID [facility]; Protocol Last Admin: 07/24/18 09:21 Dose: 30 mg Simethicone (Mylicon Liq) 40 mg PO Q6 PRN PRN Reason: Flatulence Sodium Bicarbonate (Sodium Bicarbonate Tab) 650 mg PO Q6 [facility] Last Admin: 07/24/18 09:21 Dose: 650 mg - Labs Labs: 07/24/18 05:03 07/24/18 05:03 PT 12.6 Seconds (9.8-13.1) 07/22/18 12:13 INR 1.1 07/22/18 12:13 APTT 35.0 Seconds (25.6-37.1) 07/22/18 12:13 - Constitutional Appears: No Acute Distress - Eye Exam Eye Exam: EOMI - ENT Exam ENT Exam: Mucous Membranes Moist - Respiratory Exam Respiratory Exam: Rales, Wheezes - Cardiovascular Exam Cardiovascular Exam: REGULAR RHYTHM, +S1, +S2 - GI/Abdominal Exam GI & Abdominal Exam: Soft. absent: Tenderness - Extremities Exam Extremities Exam: Pedal Edema (bilateral) - Neurological Exam Neurological Exam: Alert, Awake Assessment and Plan - Assessment and Plan (Free Text) Assessment: 88 yo M with pmxhx of Afib, Diabetes, HTN, liver cirrhosis, celiac disease admitted for pneumonia, influenza and acute kidney injury. Plan: CXR: R pleural effusions CT chest/abdo/pelvis: 1. Active CHF suggested mild right and minimal left pleural effusions noted. Cardiomegaly. Pulmonary vascular congestion. No pericardial effusion. 2. Limited patchy atelectasis or infiltrate right middle lobe with limited atelectasis favored at the dependent bilateral lower lobes and the lingula. 3. Cirrhosis with limited gastrohepatic ligament varices. Abdominal pelvic ascites felt to be related to cirrhosis. Splenomegaly to 15.9 cm, likely related to cirrhosis and possible hepatofugal blood flow. 4. Borderline segmental colitis descending colon. 5. Enlarged prostate gland. ECHO: EF 35-40%; moderate global hypokinesis of LV, L atrium severely dilated; mild/mod AV stenosis, mod to evere MV regurge; mild tricuspid regurg. Blood culture: NG X 24 hrs Urine culture: pending CKD stage 3 -BUN: 94>87, Cr: 2.9>2.9 -Nephrology: Dr. Orozco: further recs appreciated -s/p Lasix 20 mg x1 yesterday -s/p IVF: D5 1/2 NS @ 100 -Renal diet: gluten free -f/u labs above Influenza A -Afebrile -Tamiflu 30 mg BID (renal dose) -Isolation precaution: droplet Liver cirrhosis FENG -with abdominal ascites and splenomegaly -Pt states was incidentally found on prior CT abdo -LFT: wnl -GI: Dr. Leo: Possible upper endoscopy -Hepatitis: negative R pleural effusion -cxr -chronic -wheezing -R sided -DDX PNA -Xopenex prn -Pulmonology: Dr. Person: Added levalbuterol nebs, f/u CXR -IVABX: Azithromycin and Zosyn CHF -Acute: -BNP: [id number] -ECHO Afib -NSR with PACs and benign PVCs -Tele: cardiac cath technologist -hx of eliquis: d/c due to + heme in stool -Cardiology: Dr. Ca: resume metoprolol; hold avapro; ECHO HTN -normotensive -HCTZ and Avapro recently discontinued by Dr. Ca -Cardiology: Dr. Ca: further recs appreciated -c/w metoprolol -continue to monitor BP DM -Metformin held; -Accuchecks -ICS -hypoglycemia protocol Celiac disease; chronic -Renal diet with gluten free DVT prophylaxis -SCD -Lovenox 30 mg sc Case and plan d/w Dr. Alberto Jasso MD PGY2 <Paulette Dominguez - Last Filed: 07/24/18 14:30> Objective - Vital Signs/Intake and Output Vital Signs (last 24 hours): Temp Pulse Resp BP Pulse Ox 98.0 F 72 18 155/61 H 97 07/24/18 12:00 07/24/18 12:27 07/24/18 12:00 07/24/18 12:49 07/24/18 12:00 Intake and Output: 07/24/18 07/24/18 06:59 18:59 Intake Total 200 Output Total 300 Balance -100 - Medications Medications: Current Medications Allopurinol (Zyloprim) 100 mg PO DAILY [facility] Last Admin: 07/24/18 12:51 Dose: Not Given Dextrose (Dextrose 50% Inj) 0 ml IV STAT PRN; Protocol PRN Reason: Hypoglycemia Protocol Dextrose (Glutose 15) 0 gm PO ONCE PRN; Protocol PRN Reason: Hypoglycemia Protocol Dicyclomine HCl (Bentyl) 10 mg PO Q8 PRN PRN Reason: abdominal pain/cramps Enoxaparin Sodium (Lovenox) 30 mg SC DAILY [facility]; Protocol Last Admin: 07/24/18 09:21 Dose: 30 mg Glucagon (Glucagen Diagnostic Kit) 0 mg IM STAT PRN; Protocol PRN Reason: Hypoglycemia Protocol Hydralazine HCl (Apresoline) 10 mg PO TID [facility] Azithromycin 500 mg/ Sodium (Chloride) 250 mls @ 250 mls/hr IVPB DAILY [facility]; Protocol Last Admin: 07/24/18 09:20 Dose: 250 mls/hr Piperacillin Sod/Tazobactam (Sod 2.25 gm/ Sodium Chloride) 100 mls @ 100 mls/hr IVPB Q6 [facility]; Protocol Last Admin: 07/24/18 12:29 Dose: 100 mls/hr Insulin Human Regular (Humulin R) 0 units SC ACHS [facility]; Protocol Last Admin: 07/24/18 12:18 Dose: Not Given Levalbuterol HCl (Xopenex) 1.25 mg INH RQ8 PRN PRN Reason: Shortness of Breath Last Admin: 07/24/18 12:27 Dose: 1.25 mg Levalbuterol HCl (Xopenex) 0.63 mg INH RQ8 [facility] Metoprolol Succinate (Toprol Xl) 50 mg PO DAILY [facility] Last Admin: 07/24/18 09:21 Dose: 50 mg Morphine Sulfate (Morphine) 2 mg IVP Q6 PRN PRN Reason: Pain, Mild (1-3) Morphine Sulfate (Morphine) 4 mg IVP Q4 PRN PRN Reason: Pain, moderate (4-7) Oseltamivir Phosphate (Tamiflu Cap) 30 mg PO BID [facility]; Protocol Last Admin: 07/24/18 09:21 Dose: 30 mg Simethicone (Mylicon Liq) 40 mg PO Q6 PRN PRN Reason: Flatulence Sodium Bicarbonate (Sodium Bicarbonate Tab) 650 mg PO Q6 [facility] Last Admin: 07/24/18 09:21 Dose: 650 mg - Labs Labs: 07/24/18 05:03 07/24/18 05:03 PT 12.6 Seconds (9.8-13.1) 07/22/18 12:13 INR 1.1 07/22/18 12:13 APTT 35.0 Seconds (25.6-37.1) 07/22/18 12:13 Attending/Attestation - Attestation I have personally seen and examined this patient.: Yes I have fully participated in the care of the patient.: Yes I have reviewed all pertinent clinical information, including history, physical exam and plan: Yes Notes (Text): Influenza A Pneumonia, prob bacterial KARMEN on CKD Stage III Liver cirrhosis sec to FENG CHF , combined systolic and diastolic dysfunction Mod , Mod MR Pleural Effusion Ascites sec to Cirrhosis A Fib, chronic DM Type II HTN Celiac Dis - cont Tamiflu ( renal dose) - cont IV Zosyn, Azithro - Nephro, Pulm and Cardio consulted - cont Metoprolol, add low dose Hydralazine, no ARB/WENDI due to KARMEN - Low dose IV Lasix prn ( gentle diuresis) - started Xopenex RTC - cont Sodium Bicarb - Physical therapy
--- NOTE | 2018-07-24 10:46 | CP.PCM.PN ---
Subjective - Date & Time of Evaluation Date of Evaluation: 07/24/18 Time of Evaluation: 10:42 - Subjective Subjective: Seen on rounds in telemetry. Seated on the edge of the bed, conversant, oriented. Appears much improved from the day before. Labs and vital signs were reviewed. Dependant edema of the LE's appears somewhat improved as well. No cyanosis or calf tenderness. Scattered medium rales in both lungs. No audible bronchial breathing. Few scattered expiratory wheezes are heard bilaterally. Heart sounds are distant, regular rhythm. Will add low dose levalbuterol nebs Q8H scheduled. Continue oseltamivir and azithromycin. Follow up chest x-ray tomorrow AM. Objective - Vital Signs/Intake and Output Vital Signs (last 24 hours): Temp Pulse Resp BP Pulse Ox 97.8 F 73 18 149/73 94 L 07/24/18 08:00 07/24/18 08:00 07/24/18 08:00 07/24/18 08:00 07/24/18 08:00 Intake and Output: 07/23/18 07/24/18 23:59 11:59 Intake Total 1550 200 Output Total 400 300 Balance 1150 -100 - Medications Medications: Current Medications Dextrose (Dextrose 50% Inj) 0 ml IV STAT PRN; Protocol PRN Reason: Hypoglycemia Protocol Dextrose (Glutose 15) 0 gm PO ONCE PRN; Protocol PRN Reason: Hypoglycemia Protocol Dicyclomine HCl (Bentyl) 10 mg PO Q8 PRN PRN Reason: abdominal pain/cramps Enoxaparin Sodium (Lovenox) 30 mg SC DAILY [facility]; Protocol Last Admin: 07/24/18 09:21 Dose: 30 mg Glucagon (Glucagen Diagnostic Kit) 0 mg IM STAT PRN; Protocol PRN Reason: Hypoglycemia Protocol Azithromycin 500 mg/ Sodium (Chloride) 250 mls @ 250 mls/hr IVPB DAILY [facility]; Protocol Last Admin: 07/24/18 09:20 Dose: 250 mls/hr Insulin Human Regular (Humulin R) 0 units SC ACHS [facility]; Protocol Last Admin: 07/24/18 09:20 Dose: 1 unit Levalbuterol HCl (Xopenex) 1.25 mg INH RQ8 PRN PRN Reason: Shortness of Breath Metoprolol Succinate (Toprol Xl) 50 mg PO DAILY [facility] Last Admin: 07/24/18 09:21 Dose: 50 mg Morphine Sulfate (Morphine) 2 mg IVP Q6 PRN PRN Reason: Pain, Mild (1-3) Morphine Sulfate (Morphine) 4 mg IVP Q4 PRN PRN Reason: Pain, moderate (4-7) Oseltamivir Phosphate (Tamiflu Cap) 30 mg PO BID [facility]; Protocol Last Admin: 07/24/18 09:21 Dose: 30 mg Simethicone (Mylicon Liq) 40 mg PO Q6 PRN PRN Reason: Flatulence Sodium Bicarbonate (Sodium Bicarbonate Tab) 650 mg PO Q6 [facility] Last Admin: 07/24/18 09:21 Dose: 650 mg - Labs Labs: 07/24/18 05:03 07/24/18 05:03 PT 12.6 Seconds (9.8-13.1) 07/22/18 12:13 INR 1.1 07/22/18 12:13 APTT 35.0 Seconds (25.6-37.1) 07/22/18 12:13 Assessment and Plan (1) Pneumonia Status: Acute (2) Influenza A Status: Acute (3) 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
[2018-07-24] MEDS ORDERED: Albumin Human 25% (12.5 gm/50 ml) IV ONE (11:15)
--- NOTE | 2018-07-24 11:22 | CP.PCM.PN ---
Subjective - Date & Time of Evaluation Date of Evaluation: 07/24/18 Time of Evaluation: 11:22 - Subjective Subjective: Patient sitting up in bed awake and conscious feeling much better less coughing less shortness of breath. Also less edema Labs reviewed and noted no significant proteinuria but noted to have high uric acid over 11. Etiology not clear. at the bedside. Appetite somewhat improving. No clear cut of output because he was going to the bathroom and he could not collect the entire urine We need to continue to have daily weight to estimate his weight gain or loss on his response and to adjust the diuretics Objective - Vital Signs/Intake and Output Vital Signs (last 24 hours): Temp Pulse Resp BP Pulse Ox 97.8 F 73 18 149/73 94 L 07/24/18 08:00 07/24/18 08:00 07/24/18 08:00 07/24/18 08:00 07/24/18 08:00 Intake and Output: 07/24/18 07/24/18 06:59 18:59 Intake Total 200 Output Total 300 Balance -100 - Medications Medications: Current Medications Albumin Human (Albumin Human 25% (12.5 Gm/50 Ml)) 12.5 gm IV ONCE ONE Stop: 07/24/18 11:16 Allopurinol (Zyloprim) 100 mg PO DAILY [facility] Dextrose (Dextrose 50% Inj) 0 ml IV STAT PRN; Protocol PRN Reason: Hypoglycemia Protocol Dextrose (Glutose 15) 0 gm PO ONCE PRN; Protocol PRN Reason: Hypoglycemia Protocol Dicyclomine HCl (Bentyl) 10 mg PO Q8 PRN PRN Reason: abdominal pain/cramps Enoxaparin Sodium (Lovenox) 30 mg SC DAILY [facility]; Protocol Last Admin: 07/24/18 09:21 Dose: 30 mg Furosemide (Lasix) 20 mg IVP ONCE ONE Stop: 07/24/18 11:16 Glucagon (Glucagen Diagnostic Kit) 0 mg IM STAT PRN; Protocol PRN Reason: Hypoglycemia Protocol Azithromycin 500 mg/ Sodium (Chloride) 250 mls @ 250 mls/hr IVPB DAILY [facility]; Protocol Last Admin: 07/24/18 09:20 Dose: 250 mls/hr Insulin Human Regular (Humulin R) 0 units SC ACHS [facility]; Protocol Last Admin: 07/24/18 09:20 Dose: 1 unit Levalbuterol HCl (Xopenex) 1.25 mg INH RQ8 PRN PRN Reason: Shortness of Breath Levalbuterol HCl (Xopenex) 0.63 mg INH RQ8 [facility] Metoprolol Succinate (Toprol Xl) 50 mg PO DAILY [facility] Last Admin: 07/24/18 09:21 Dose: 50 mg Morphine Sulfate (Morphine) 2 mg IVP Q6 PRN PRN Reason: Pain, Mild (1-3) Morphine Sulfate (Morphine) 4 mg IVP Q4 PRN PRN Reason: Pain, moderate (4-7) Oseltamivir Phosphate (Tamiflu Cap) 30 mg PO BID [facility]; Protocol Last Admin: 07/24/18 09:21 Dose: 30 mg Simethicone (Mylicon Liq) 40 mg PO Q6 PRN PRN Reason: Flatulence Sodium Bicarbonate (Sodium Bicarbonate Tab) 650 mg PO Q6 [facility] Last Admin: 07/24/18 09:21 Dose: 650 mg - Labs Labs: 07/24/18 05:03 07/24/18 05:03 PT 12.6 Seconds (9.8-13.1) 07/22/18 12:13 INR 1.1 07/22/18 12:13 APTT 35.0 Seconds (25.6-37.1) 07/22/18 12:13 - Constitutional Appears: No Acute Distress - Eye Exam Eye Exam: Conjunctival injection - ENT Exam ENT Exam: Mucous Membranes Moist - Neck Exam Neck Exam: absent: Lymphadenopathy - Respiratory Exam Respiratory Exam: NORMAL BREATHING PATTERN. absent: Chest Wall Tenderness, Rales - Cardiovascular Exam Cardiovascular Exam: absent: Gallop, JVD, Rubs - GI/Abdominal Exam GI & Abdominal Exam: Soft, Normal Bowel Sounds - Extremities Exam Extremities Exam: absent: Calf Tenderness - Back Exam Back Exam: absent: CVA tenderness (L), CVA tenderness (R) - Neurological Exam Neurological Exam: Alert - Psychiatric Exam Psychiatric exam: Normal Affect - Skin Skin Exam: absent: Cyanosis Assessment and Plan (1) KARMEN (acute kidney injury) Assessment & Plan: acute kidney injury possible from dehydration also patient was taking hydrochlorothiazide and WENDI inhibitor super imposed on chronic kidney disease perhaps stage III from the history when serum creatinine I am told in the range of 1.7 . Patient has abdominal ascites and leg edema with a history of liver cirrhosis Hypoalbuminemia pneumonia? Chronic celiac disease history Diabetes mellitus Hypertension flu metabolic acidosis hyperurecemia Recommendation Continue with gentle hydration 25% 50 cc albumin to be given with Lasix 20mg if urine output not responding we will give higher dose of Lasix. Add allopurinol 100 mg for hyperuricemia. Needs evaluation for high uric acid? Etiology not clear at this point. Kidney function improving by dropping serum BUN but not serum creatinine Overall patient doing much better and feeling much better. Metabolic acidosis improving CO2 going up slowly Status: Chronic
[2018-07-24] MEDS ORDERED: Potassium Ch 20mEq in D5-1/2NS 1,000 ML IV SCH (11:45)
--- NOTE | 2018-07-24 13:05 | CP.PCM.PN ---
Subjective - Date & Time of Evaluation Date of Evaluation: 07/24/18 Time of Evaluation: 10:30 - Subjective Subjective: FEELS A LITTLE BETTER AND STRONGER TODAY BREATHING BETTER Objective - Vital Signs/Intake and Output Vital Signs (last 24 hours): Temp Pulse Resp BP Pulse Ox 98.0 F 72 18 155/61 H 97 07/24/18 12:00 07/24/18 12:27 07/24/18 12:00 07/24/18 12:49 07/24/18 12:00 Intake and Output: 07/24/18 07/24/18 06:59 18:59 Intake Total 200 Output Total 300 Balance -100 - Medications Medications: Current Medications Allopurinol (Zyloprim) 100 mg PO DAILY [facility] Last Admin: 07/24/18 12:51 Dose: Not Given Dextrose (Dextrose 50% Inj) 0 ml IV STAT PRN; Protocol PRN Reason: Hypoglycemia Protocol Dextrose (Glutose 15) 0 gm PO ONCE PRN; Protocol PRN Reason: Hypoglycemia Protocol Dicyclomine HCl (Bentyl) 10 mg PO Q8 PRN PRN Reason: abdominal pain/cramps Enoxaparin Sodium (Lovenox) 30 mg SC DAILY [facility]; Protocol Last Admin: 07/24/18 09:21 Dose: 30 mg Glucagon (Glucagen Diagnostic Kit) 0 mg IM STAT PRN; Protocol PRN Reason: Hypoglycemia Protocol Azithromycin 500 mg/ Sodium (Chloride) 250 mls @ 250 mls/hr IVPB DAILY [facility]; Protocol Last Admin: 07/24/18 09:20 Dose: 250 mls/hr Piperacillin Sod/Tazobactam (Sod 2.25 gm/ Sodium Chloride) 100 mls @ 100 mls/hr IVPB Q6 [facility]; Protocol Last Admin: 07/24/18 12:29 Dose: 100 mls/hr Potassium Chloride/Dextrose/Sod Cl (Potassium Chl 20 Meq In D5-1/2ns) 1,000 mls @ 42 mls/hr IV .[id number] [facility] Stop: 07/25/18 11:36 Last Admin: 07/24/18 12:30 Dose: 42 mls/hr Insulin Human Regular (Humulin R) 0 units SC ACHS [facility]; Protocol Last Admin: 07/24/18 12:18 Dose: Not Given Levalbuterol HCl (Xopenex) 1.25 mg INH RQ8 PRN PRN Reason: Shortness of Breath Last Admin: 07/24/18 12:27 Dose: 1.25 mg Levalbuterol HCl (Xopenex) 0.63 mg INH RQ8 [facility] Metoprolol Succinate (Toprol Xl) 50 mg PO DAILY [facility] Last Admin: 07/24/18 09:21 Dose: 50 mg Morphine Sulfate (Morphine) 2 mg IVP Q6 PRN PRN Reason: Pain, Mild (1-3) Morphine Sulfate (Morphine) 4 mg IVP Q4 PRN PRN Reason: Pain, moderate (4-7) Oseltamivir Phosphate (Tamiflu Cap) 30 mg PO BID [facility]; Protocol Last Admin: 07/24/18 09:21 Dose: 30 mg Simethicone (Mylicon Liq) 40 mg PO Q6 PRN PRN Reason: Flatulence Sodium Bicarbonate (Sodium Bicarbonate Tab) 650 mg PO Q6 [facility] Last Admin: 07/24/18 09:21 Dose: 650 mg - Labs Labs: 07/24/18 05:03 07/24/18 05:03 PT 12.6 Seconds (9.8-13.1) 07/22/18 12:13 INR 1.1 07/22/18 12:13 APTT 35.0 Seconds (25.6-37.1) 07/22/18 12:13 - Respiratory Exam Respiratory Exam: Rales, Rhonchi - Cardiovascular Exam Cardiovascular Exam: REGULAR RHYTHM, +S1, +S2 - Extremities Exam Extremities Exam: Pedal Edema - Additional Findings Additional findings: BUN 84 CR 2.9 UROLOGY AND PULMONARY NOTES REVIEWED ECHO WITH NORMAL LV SIZE, WALL THICKNESS IS BORERLINE FOR MILD CONCENTRIC LVH, LV FUNCDTION VARIES SOMEWHAT FROM ONE VIEW TO ANOTHER AND LVEF ~ 45% IN MY OPINION, MODERATE MR, MILD TR, MODERATE WITH AV GRADIENT OF 28 MMHG AND CARY O F 1.3 CM2 Assessment and Plan - Assessment and Plan (Free Text) Assessment: PNEUMONIA INFLUENZA KARMEN ON CRH HYPERTENSION MODERATE LV HYPOKINESIA, MODERATE , MODERATE MR Plan: CONTINUE IV ANTIBIOTICS, METOPROLOL, TAMIFLU, LOVENOX, XOPENEX, ALLOPURINOL, FUROSEMIDE GIVEN
--- NOTE | 2018-07-24 14:19 | PQF ---
PROVIDER RESPONSE TEXT: Acute CHF exacerbation, Combined systolic and diastolic dysfunction REVIEWER QUERY TEXT: CHF Acuity and Type CHF Acute is documented in the medical record.. Please clarify the type after workup Congestive Heart Failure is documented in the Medical Record. Please document the type and acuity (in cludes probable or suspected) Such as: Type: -- Systolic -- Diastolic -- Combined -- Other, please specify The patient's Clinical Indicators include: Pro BNP 28,400 CXR: Asymmetric pulmonary vascular congestion right more prominent than left CT:.Active CHF suggested mild right and minimal left pleural effusions noted. Cardiomegaly. Pulmonary vascular congestion. No pericardial effusion. ECHO: The LV systolic function is moderately impaired. The estimated ejection fraction is 35-40% Th ere is moderate global hypokinesis of the left ventricle. The left ventricular diastolic function ass essment is inconclusive. The left atrium is severely dilated. There is mild to moderate aortic valvular stenosis. Peak aortic velocity is - 3 m/sec with calculated CARY 1.3 cm2. There is moderate to severe mitral valve regurgit ation noted. There is mild tricuspid valve regurgitation noted. RVSP is calculated at 60 mm Hg, cons istent with moderate pulmonary HTN. The IVC is normal in size and collapses >50% with inspiration. CARDIOLOGY: CONSULT: 1) KARMEN ON TOP OF CRF STAGE 3 MOST PROBABLY FROM DEHYDRATION AND HCTZ USE AND PO SSIBLY FROM AVAPRO 2) INFLUENZA H 3) HYPERTENSION 4) CIRRHOSIS OF THE LIVER-ETIOLOGY IS UNCLEAR AT THE PRESENT TIME 5) RECENT HEME POSITIVE STOOL ON XARELTO THAT HAS BEEN DISCONTINUED 6) HISTORY OF ATRIAL FIBRILLATION-NOW IN SINUS RHYTHM WITH BENIGN PACS AND PVCS 7) CELIAC DISEASE Rx: Lasix IV PRN Query created by: Marlyn Medrano on 07/24/2018 1:41 PM Electronically signed by: Paulette Dominguez MD 07/24/2018 2:16 PM
[2018-07-24] MEDS: Levalbuterol 0.63 MG/3 ML Inhal Soln UD INH SCH ×2 (15:49→23:19)
[2018-07-25 06:21] LABS: BASO % 0.8 % (0.0-2.0); EOS # 0.5 K/uL (0.0-0.7); EOS % 10.4 % (0.0-4.0); HEMOGLOBIN 10.9 g/dL (12.0-18.0); LYMPH # 0.7 K/uL (1.0-4.3); LYMPH % 13.6 % (20.0-40.0); MEAN CELL VOLUME 96.5 fl (80.0-94.0); MEAN CORPUSCULAR HEMOGLOBIN 32.7 pg (27.0-31.0); MEAN CORPUSCULAR HGB CONC 33.9 g/dL (33.0-37.0); MEAN PLATELET VOLUME 9.7 fl (7.2-11.7); MONO # 0.8 K/uL (0.0-0.8); MONO % 16.5 % (0.0-10.0); NEUT # 2.9 K/uL (1.8-7.0); NEUT % 58.7 % (50.0-75.0); RBC 3.34 Mil/uL (4.40-5.90); RED CELL DISTRIBUTION WIDTH 15.4 % (11.5-14.5); WHITE BLOOD COUNT 4.9 K/uL (4.8-10.8)
[2018-07-25 06:40] LABS: ALBUMIN 3.3 g/dL (3.5-5.0); CALCIUM 8.7 mg/dL (8.4-10.2)
[2018-07-25] MEDS: Levalbuterol 0.63 MG/3 ML Inhal Soln UD INH SCH ×3 (07:41→23:35)
[2018-07-25] MEDS: Azithromycin 500 MG in Sodium Chloride 0.9% 250 ML IVPB SCH (09:03)
[2018-07-25] MEDS: Lactobacillus Acidophilus 500 MU Cap PO SCH ×2 (09:05→16:42)
[2018-07-25] MEDS: Insulin Regular 100 units/ml SC SCH ×4 (09:05→22:06)
[2018-07-25] MEDS: Metoprolol Succinate 50 mg XL Tab PO SCH (09:07)
[2018-07-25] MEDS: Enoxaparin 30 mg Syringe SC SCH (09:07)
--- NOTE | 2018-07-25 09:59 | CP.PCM.PN ---
Subjective - Date & Time of Evaluation Date of Evaluation: 07/25/18 Time of Evaluation: 09:58 - Subjective Subjective: Continues to improve slowly. Remains afebrile, mildly hypertensive. Appears stronger than previous days. No SOB or chest pain. Occasional cough w/o sputum production. No audible wheezes. Scattered rhonchi and R lower lobe rales. BUN is slowly improving. Continue same regimen. Plan for paracentesis. Objective - Vital Signs/Intake and Output Vital Signs (last 24 hours): Temp Pulse Resp BP Pulse Ox 98.6 F 67 18 151/69 H 98 07/25/18 08:00 07/25/18 08:00 07/25/18 08:00 07/25/18 08:00 07/25/18 08:00 Intake and Output: 07/24/18 07/25/18 23:59 11:59 Intake Total 970 700 Balance 970 700 - Medications Medications: Current Medications Albumin Human (Albumin Human 25% (12.5 Gm/50 Ml)) 12.5 gm IV Q8 [facility] Dextrose (Dextrose 50% Inj) 0 ml IV STAT PRN; Protocol PRN Reason: Hypoglycemia Protocol Dextrose (Glutose 15) 0 gm PO ONCE PRN; Protocol PRN Reason: Hypoglycemia Protocol Dicyclomine HCl (Bentyl) 10 mg PO Q8 PRN PRN Reason: abdominal pain/cramps Enoxaparin Sodium (Lovenox) 30 mg SC DAILY [facility]; Protocol Last Admin: 07/25/18 09:07 Dose: 30 mg Glucagon (Glucagen Diagnostic Kit) 0 mg IM STAT PRN; Protocol PRN Reason: Hypoglycemia Protocol Hydralazine HCl (Apresoline) 10 mg PO TID [facility] Last Admin: 07/25/18 09:06 Dose: 10 mg Azithromycin 500 mg/ Sodium (Chloride) 250 mls @ 250 mls/hr IVPB DAILY [facility]; Protocol Last Admin: 07/25/18 09:03 Dose: 250 mls/hr Piperacillin Sod/Tazobactam (Sod 2.25 gm/ Sodium Chloride) 100 mls @ 100 mls/hr IVPB Q12H [facility]; Protocol Dextrose/Sodium Chloride (Dextrose 5%/0.45% Ns 1000 Ml) 1,000 mls @ 42 mls/hr IV .[id number] [facility] Stop: 07/26/18 09:51 Insulin Human Regular (Humulin R) 0 units SC ACHS [facility]; Protocol Last Admin: 07/25/18 09:05 Dose: 1 unit Lactobacillus Acidophilus (Bacid Acidophilus) 1 cap PO BID [facility] Last Admin: 07/25/18 09:05 Dose: 1 cap Levalbuterol HCl (Xopenex) 1.25 mg INH RQ8 PRN PRN Reason: Shortness of Breath Last Admin: 07/24/18 12:27 Dose: 1.25 mg Levalbuterol HCl (Xopenex) 0.63 mg INH RQ8 [facility] Last Admin: 07/25/18 07:41 Dose: 0.63 mg Metoprolol Succinate (Toprol Xl) 50 mg PO DAILY [facility] Last Admin: 07/25/18 09:07 Dose: 50 mg Morphine Sulfate (Morphine) 2 mg IVP Q6 PRN PRN Reason: Pain, Mild (1-3) Morphine Sulfate (Morphine) 4 mg IVP Q4 PRN PRN Reason: Pain, moderate (4-7) Oseltamivir Phosphate (Tamiflu Cap) 30 mg PO BID [facility]; Protocol Last Admin: 07/25/18 09:06 Dose: 30 mg Simethicone (Mylicon Liq) 40 mg PO Q6 PRN PRN Reason: Flatulence Sodium Bicarbonate (Sodium Bicarbonate Tab) 650 mg PO Q6 [facility] Last Admin: 07/25/18 09:07 Dose: 650 mg - Labs Labs: 07/25/18 05:40 07/25/18 05:40 PT 12.6 Seconds (9.8-13.1) 07/22/18 12:13 INR 1.1 07/22/18 12:13 APTT 35.0 Seconds (25.6-37.1) 07/22/18 12:13 Assessment and Plan (1) Pneumonia Status: Acute (2) Influenza A Status: Acute (3) 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
--- NOTE | 2018-07-25 10:06 | CP.PCM.PN ---
Subjective - Date & Time of Evaluation Date of Evaluation: 07/25/18 Time of Evaluation: 10:06 - Subjective Subjective: Patient awake and conscious still complaining of some shortness of breath although he stated he may be better Vital signs noted to be stable Abdominal ascites and leg edema persisted if not worsening? Objective - Vital Signs/Intake and Output Vital Signs (last 24 hours): Temp Pulse Resp BP Pulse Ox 98.6 F 67 18 151/69 H 98 07/25/18 08:00 07/25/18 08:00 07/25/18 08:00 07/25/18 08:00 07/25/18 08:00 Intake and Output: 07/25/18 07/25/18 06:59 18:59 Intake Total 1670 Balance 1670 - Medications Medications: Current Medications Albumin Human (Albumin Human 25% (12.5 Gm/50 Ml)) 12.5 gm IV Q8 [facility] Dextrose (Dextrose 50% Inj) 0 ml IV STAT PRN; Protocol PRN Reason: Hypoglycemia Protocol Dextrose (Glutose 15) 0 gm PO ONCE PRN; Protocol PRN Reason: Hypoglycemia Protocol Dicyclomine HCl (Bentyl) 10 mg PO Q8 PRN PRN Reason: abdominal pain/cramps Enoxaparin Sodium (Lovenox) 30 mg SC DAILY [facility]; Protocol Last Admin: 07/25/18 09:07 Dose: 30 mg Glucagon (Glucagen Diagnostic Kit) 0 mg IM STAT PRN; Protocol PRN Reason: Hypoglycemia Protocol Hydralazine HCl (Apresoline) 10 mg PO TID [facility] Last Admin: 07/25/18 09:06 Dose: 10 mg Azithromycin 500 mg/ Sodium (Chloride) 250 mls @ 250 mls/hr IVPB DAILY [facility]; Protocol Last Admin: 07/25/18 09:03 Dose: 250 mls/hr Piperacillin Sod/Tazobactam (Sod 2.25 gm/ Sodium Chloride) 100 mls @ 100 mls/hr IVPB Q12H [facility]; Protocol Dextrose/Sodium Chloride (Dextrose 5%/0.45% Ns 1000 Ml) 1,000 mls @ 42 mls/hr IV .[id number] [facility] Stop: 07/26/18 09:51 Insulin Human Regular (Humulin R) 0 units SC ACHS [facility]; Protocol Last Admin: 07/25/18 09:05 Dose: 1 unit Lactobacillus Acidophilus (Bacid Acidophilus) 1 cap PO BID [facility] Last Admin: 07/25/18 09:05 Dose: 1 cap Levalbuterol HCl (Xopenex) 1.25 mg INH RQ8 PRN PRN Reason: Shortness of Breath Last Admin: 07/24/18 12:27 Dose: 1.25 mg Levalbuterol HCl (Xopenex) 0.63 mg INH RQ8 [facility] Last Admin: 07/25/18 07:41 Dose: 0.63 mg Metoprolol Succinate (Toprol Xl) 50 mg PO DAILY [facility] Last Admin: 07/25/18 09:07 Dose: 50 mg Morphine Sulfate (Morphine) 2 mg IVP Q6 PRN PRN Reason: Pain, Mild (1-3) Morphine Sulfate (Morphine) 4 mg IVP Q4 PRN PRN Reason: Pain, moderate (4-7) Oseltamivir Phosphate (Tamiflu Cap) 30 mg PO BID [facility]; Protocol Last Admin: 07/25/18 09:06 Dose: 30 mg Simethicone (Mylicon Liq) 40 mg PO Q6 PRN PRN Reason: Flatulence Sodium Bicarbonate (Sodium Bicarbonate Tab) 650 mg PO Q6 [facility] Last Admin: 07/25/18 09:07 Dose: 650 mg Spironolactone (Aldactone) 25 mg PO BID [facility] - Labs Labs: 07/25/18 05:40 07/25/18 05:40 PT 12.6 Seconds (9.8-13.1) 07/22/18 12:13 INR 1.1 07/22/18 12:13 APTT 35.0 Seconds (25.6-37.1) 07/22/18 12:13 - Constitutional Appears: No Acute Distress - Eye Exam Eye Exam: Conjunctival injection - ENT Exam ENT Exam: Mucous Membranes Moist - Respiratory Exam Respiratory Exam: Decreased Breath Sounds, Rhonchi - Cardiovascular Exam Cardiovascular Exam: absent: Gallop, JVD, Rubs - GI/Abdominal Exam GI & Abdominal Exam: Distended, Firm, Normal Bowel Sounds Additional comments: Massive ascites - Extremities Exam Extremities Exam: Pedal Edema. absent: Calf Tenderness - Back Exam Back Exam: absent: CVA tenderness (L), CVA tenderness (R) - Neurological Exam Neurological Exam: Alert - Psychiatric Exam Psychiatric exam: Normal Affect - Skin Skin Exam: absent: Cyanosis Assessment and Plan (1) KARMEN (acute kidney injury) Assessment & Plan: acute kidney injury possible from dehydration also patient was taking hydrochlorothiazide and WENDI inhibitor super imposed on chronic kidney disease perhaps stage III from the history when serum creatinine I am told in the range of 1.[address] Ascencio told me today that his BUN in May was in the range of 140+, I asked him to bring that the blood test for May Patient has abdominal ascites and leg edema with a history of liver cirrhosis Hypoalbuminemia pneumonia? Chronic celiac disease history Diabetes mellitus Hypertension flu metabolic acidosis hyperurecemia Recommendation Serum creatinine going up slightly the last reading 3.1 BUN coming down slowly No clear Daily weight reported to determine weight gain or the status of his weight possibly gaining weight, I discussed the issue with the nurse at the bedside to make sure to record daily weight intake and output Discussed with Dr. Leo the GI and Dr. Ca the mechanic insulator patient to go for abdominal paracentesis to alleviate some of the massive ascites Add Aldactone 25 mg twice daily as discussed with the mechanic insulator, we will mon itor serum potassium closely if any rise in serum potassium Aldactone must be stopped immediately 25% albumin 50 cc every 8 hours as discussed with the GI as well Cut antibiotics as per GFR decrease IV fluid to 40 cc/h Status: Chronic
--- NOTE | 2018-07-25 10:24 | CP.PCM.PN ---
Subjective - Date & Time of Evaluation Date of Evaluation: 07/25/18 Time of Evaluation: 07:00 - Subjective Subjective: Pt seen and examined at bedside. Reports difficulty sleeping overnight. Reports decrease coughing. Remains afebrile. Objective - Vital Signs/Intake and Output Vital Signs (last 24 hours): Temp Pulse Resp BP Pulse Ox 98.6 F 67 18 151/69 H 98 07/25/18 08:00 07/25/18 08:00 07/25/18 08:00 07/25/18 08:00 07/25/18 08:00 Intake and Output: 07/25/18 07/25/18 06:59 18:59 Intake Total 1670 Balance 1670 - Medications Medications: Current Medications Albumin Human (Albumin Human 25% (12.5 Gm/50 Ml)) 12.5 gm IV Q8 [facility] Dextrose (Dextrose 50% Inj) 0 ml IV STAT PRN; Protocol PRN Reason: Hypoglycemia Protocol Dextrose (Glutose 15) 0 gm PO ONCE PRN; Protocol PRN Reason: Hypoglycemia Protocol Dicyclomine HCl (Bentyl) 10 mg PO Q8 PRN PRN Reason: abdominal pain/cramps Enoxaparin Sodium (Lovenox) 30 mg SC DAILY [facility]; Protocol Last Admin: 07/25/18 09:07 Dose: 30 mg Glucagon (Glucagen Diagnostic Kit) 0 mg IM STAT PRN; Protocol PRN Reason: Hypoglycemia Protocol Hydralazine HCl (Apresoline) 10 mg PO TID [facility] Last Admin: 07/25/18 09:06 Dose: 10 mg Azithromycin 500 mg/ Sodium (Chloride) 250 mls @ 250 mls/hr IVPB DAILY [facility]; Protocol Last Admin: 07/25/18 09:03 Dose: 250 mls/hr Piperacillin Sod/Tazobactam (Sod 2.25 gm/ Sodium Chloride) 100 mls @ 100 mls/hr IVPB Q12H [facility]; Protocol Dextrose/Sodium Chloride (Dextrose 5%/0.45% Ns 1000 Ml) 1,000 mls @ 42 mls/hr IV .[id number] [facility] Stop: 07/26/18 09:51 Insulin Human Regular (Humulin R) 0 units SC ACHS [facility]; Protocol Last Admin: 07/25/18 09:05 Dose: 1 unit Lactobacillus Acidophilus (Bacid Acidophilus) 1 cap PO BID [facility] Last Admin: 07/25/18 09:05 Dose: 1 cap Levalbuterol HCl (Xopenex) 1.25 mg INH RQ8 PRN PRN Reason: Shortness of Breath Last Admin: 07/24/18 12:27 Dose: 1.25 mg Levalbuterol HCl (Xopenex) 0.63 mg INH RQ8 [facility] Last Admin: 07/25/18 07:41 Dose: 0.63 mg Metoprolol Succinate (Toprol Xl) 50 mg PO DAILY [facility] Last Admin: 07/25/18 09:07 Dose: 50 mg Morphine Sulfate (Morphine) 2 mg IVP Q6 PRN PRN Reason: Pain, Mild (1-3) Morphine Sulfate (Morphine) 4 mg IVP Q4 PRN PRN Reason: Pain, moderate (4-7) Oseltamivir Phosphate (Tamiflu Cap) 30 mg PO BID [facility]; Protocol Last Admin: 07/25/18 09:06 Dose: 30 mg Simethicone (Mylicon Liq) 40 mg PO Q6 PRN PRN Reason: Flatulence Sodium Bicarbonate (Sodium Bicarbonate Tab) 650 mg PO Q6 [facility] Last Admin: 07/25/18 09:07 Dose: 650 mg Spironolactone (Aldactone) 25 mg PO BID [facility] - Labs Labs: 07/25/18 05:40 07/25/18 05:40 PT 12.6 Seconds (9.8-13.1) 07/22/18 12:13 INR 1.1 07/22/18 12:13 APTT 35.0 Seconds (25.6-37.1) 07/22/18 12:13 - Eye Exam Eye Exam: EOMI - ENT Exam ENT Exam: Mucous Membranes Moist - Respiratory Exam Respiratory Exam: Decreased Breath Sounds, Rales, Wheezes. absent: Chest Wall Tenderness - Cardiovascular Exam Cardiovascular Exam: +S1, +S2 - GI/Abdominal Exam GI & Abdominal Exam: Distended, Soft. absent: Tenderness - Neurological Exam Neurological Exam: Alert, Awake, CN II-XII Intact, Oriented x3 - Psychiatric Exam Psychiatric exam: Normal Affect, Normal Mood Assessment and Plan - Assessment and Plan (Free Text) Assessment: 88 yo M with pmxhx of Afib, Diabetes, HTN, liver cirrhosis, celiac disease admitted for pneumonia, influenza and acute kidney injury. Plan: CXR: R pleural effusions CT chest/abdo/pelvis: 1. Active CHF suggested mild right and minimal left pleural effusions noted. Cardiomegaly. Pulmonary vascular congestion. No pericardial effusion. 2. Limited patchy atelectasis or infiltrate right middle lobe with limited atelectasis favored at the dependent bilateral lower lobes and the lingula. 3. Cirrhosis with limited gastrohepatic ligament varices. Abdominal pelvic ascites felt to be related to cirrhosis. Splenomegaly to 15.9 cm, likely related to cirrhosis and possible hepatofugal blood flow. 4. Borderline segmental colitis descending colon. 5. Enlarged prostate gland. ECHO: EF 35-40%; moderate global hypokinesis of LV, L atrium severely dilated; mild/mod AV stenosis, mod to evere MV regurge; mild tricuspid regurg. Blood culture: NG X 48 hrs Urine culture: pending Renal US: pending CKD stage 3 -BUN: 94>87>81, Cr: 2.9>2.9>3.1 -Nephrology: Dr. Orozco: further recs appreciated -s/p Lasix 20 mg x1 yesterday -s/p IVF: D5 1/2 NS @ 42 -Renal diet: gluten free -f/u labs, renal US Influenza A -Afebrile -Tamiflu 30 mg BID (renal dose) -Isolation precaution: droplet Liver cirrhosis FENG -with abdominal ascites and splenomegaly -Pt states was incidentally found on prior CT abdo -LFT: wnl -GI: Dr. Leo: Possible upper endoscopy -Hepatitis: negative -for paracentesis: IR consulted R pleural effusion -cxr -chronic -wheezing -R sided -DDX PNA -Xopenex prn -Pulmonology: Dr. Person: Added levalbuterol nebs -IVABX: Azithromycin and Zosyn CHF -Acute -BNP: 68659 -ECHO Afib -NSR with PACs and benign PVCs -Tele: monitoring analyst -hx of eliquis: d/c due to + heme in stool -Cardiology: Dr. Ca:metoprolol, avapro HTN -HCTZ recently discontinued by Dr. Ca -Cardiology: Dr. Ca: restart aldactone, paracentesis, IVF 40 cc/hr -Metoprolol 50 mg QD, Hydralazine 10 mg PO TID -continue to monitor BP DM -Metformin held; -Accuchecks -ICS -hypoglycemia protocol -Endocrinology: Dr. Alcaraz:further recs appreciated Celiac disease; chronic -Renal diet with gluten free DVT prophylaxis -SCD -Lovenox 30 mg sc Case and plan d/w Dr. Anabell Jasso MD PGY2
--- NOTE | 2018-07-25 10:52 | CP.PCM.PN ---
Subjective - Date & Time of Evaluation Date of Evaluation: 07/25/18 Time of Evaluation: 10:00 - Subjective Subjective: FEELS A LITTLE STRONGER NO CHEST PAIN BREATHING A LITTLE BETTER AND IS ABLE TO BRING UP PHLEGM Objective - Vital Signs/Intake and Output Vital Signs (last 24 hours): Temp Pulse Resp BP Pulse Ox 98.6 F 67 18 151/69 H 98 07/25/18 08:00 07/25/18 08:00 07/25/18 08:00 07/25/18 08:00 07/25/18 08:00 Intake and Output: 07/25/18 07/25/18 06:59 18:59 Intake Total 1670 Balance 1670 - Medications Medications: Current Medications Albumin Human (Albumin Human 25% (12.5 Gm/50 Ml)) 12.5 gm IV Q8 [facility] Dextrose (Dextrose 50% Inj) 0 ml IV STAT PRN; Protocol PRN Reason: Hypoglycemia Protocol Dextrose (Glutose 15) 0 gm PO ONCE PRN; Protocol PRN Reason: Hypoglycemia Protocol Dicyclomine HCl (Bentyl) 10 mg PO Q8 PRN PRN Reason: abdominal pain/cramps Enoxaparin Sodium (Lovenox) 30 mg SC DAILY [facility]; Protocol Last Admin: 07/25/18 09:07 Dose: 30 mg Glucagon (Glucagen Diagnostic Kit) 0 mg IM STAT PRN; Protocol PRN Reason: Hypoglycemia Protocol Hydralazine HCl (Apresoline) 10 mg PO TID [facility] Last Admin: 07/25/18 09:06 Dose: 10 mg Azithromycin 500 mg/ Sodium (Chloride) 250 mls @ 250 mls/hr IVPB DAILY [facility]; Protocol Last Admin: 07/25/18 09:03 Dose: 250 mls/hr Piperacillin Sod/Tazobactam (Sod 2.25 gm/ Sodium Chloride) 100 mls @ 100 mls/hr IVPB Q12H [facility]; Protocol Last Admin: 07/25/18 10:45 Dose: Not Given Dextrose/Sodium Chloride (Dextrose 5%/0.45% Ns 1000 Ml) 1,000 mls @ 42 mls/hr IV .[id number] [facility] Stop: 07/26/18 09:51 Insulin Human Regular (Humulin R) 0 units SC ACHS [facility]; Protocol Last Admin: 07/25/18 09:05 Dose: 1 unit Lactobacillus Acidophilus (Bacid Acidophilus) 1 cap PO BID [facility] Last Admin: 07/25/18 09:05 Dose: 1 cap Levalbuterol HCl (Xopenex) 1.25 mg INH RQ8 PRN PRN Reason: Shortness of Breath Last Admin: 07/24/18 12:27 Dose: 1.25 mg Levalbuterol HCl (Xopenex) 0.63 mg INH RQ8 [facility] Last Admin: 07/25/18 07:41 Dose: 0.63 mg Metoprolol Succinate (Toprol Xl) 50 mg PO DAILY [facility] Last Admin: 07/25/18 09:07 Dose: 50 mg Morphine Sulfate (Morphine) 2 mg IVP Q6 PRN PRN Reason: Pain, Mild (1-3) Morphine Sulfate (Morphine) 4 mg IVP Q4 PRN PRN Reason: Pain, moderate (4-7) Oseltamivir Phosphate (Tamiflu Cap) 30 mg PO BID [facility]; Protocol Last Admin: 07/25/18 09:06 Dose: 30 mg Simethicone (Mylicon Liq) 40 mg PO Q6 PRN PRN Reason: Flatulence Sodium Bicarbonate (Sodium Bicarbonate Tab) 650 mg PO Q6 [facility] Last Admin: 07/25/18 09:07 Dose: 650 mg Spironolactone (Aldactone) 25 mg PO BID [facility] - Labs Labs: 07/25/18 05:40 07/25/18 05:40 PT 12.6 Seconds (9.8-13.1) 07/22/18 12:13 INR 1.1 07/22/18 12:13 APTT 35.0 Seconds (25.6-37.1) 07/22/18 12:13 - Respiratory Exam Respiratory Exam: Decreased Breath Sounds, Rales, Rhonchi, Wheezes - Cardiovascular Exam Cardiovascular Exam: REGULAR RHYTHM, +S1, +S2, Murmur - Extremities Exam Extremities Exam: Pedal Edema - Additional Findings Additional findings: FIREARMS SPECIALIST SONUS RHYTHM WITH FREQUENT SINGLE PVCS(CHRONIC) BUN/CR 81/3.1 K+ 3.9 WBC 4.9 BP 140/70 MANUALLY GLUCOSE LEVELS IN THE 120 TO 155 RANGE Assessment and Plan - Assessment and Plan (Free Text) Assessment: ACUTE ON CHRONIC RENAL FAILURE CIRRHOSIS OF THE LIVER WITH ASCITES PNEUMONIA AND INFLUENZA HYPERTENSION Plan: THE PATIENT WILL BE STARTED ON ALDACTONE, HAVE PARACENTESIS AND THE IV FLUIDS WILL BE DECREASED TO 40 CC/HR CONTINUE METOPROLOL, HYDRALAZINE, ANTIBIOTICS, TAMIFLU, XOPENEX, LOVENOX PATIENT DISCUSSED WITH Marielle ALEXANDRA AND JODI WILL HAVE ENDOCRINOLOGY SEE FOR BS CONTROL WHILE OFF METFORMEN
[2018-07-25] MEDS: Dextrose 5%/0.45% NS 1,000 ML IV SCH (11:50)
[2018-07-25 12:41] LABS: INR 1.1; PROTHROMBIN TIME 12.7 Seconds (9.8-13.1)
[2018-07-25 13:14] LABS: ALBUMIN 3.2 g/dL (3.5-5.0)
[2018-07-25] MEDS ORDERED: Lidocaine Hydrochloride 5 ML INJ ONE (14:13)
--- NOTE | 2018-07-25 14:17 | PCM.SURG1 ---
Surgeon's Initial Post Op Note - Surgeon's Notes Surgeon: Adria Martinez MD Weather Analyst: NONE Type of Anesthesia: Local Pre-Operative Diagnosis: Ascites, cirrhosis Operative Findings: US showed small amount of ascites Post-Operative Diagnosis: Ascites, cirrhosis Operation Performed: US guided paracentesis Specimen/Specimens Removed: >2 liters Estimated Blood Loss: EBL {In ML}: 0 Blood Products Given: N/A Drains Used: No Drains Post-Op Condition: Fair Date of Surgery/Procedure: 07/25/18 Time of Surgery/Procedure: 14:05
[2018-07-25 15:27] LABS: BODY FLUID TYPE PERITONEAL/ASCITES
[2018-07-25 15:40] LABS: GLUCOSE,BODY FLUID 118 mg/dL (NONE ESTABLISHED)
[2018-07-25 15:55] LABS: TOTAL PROTEIN,BODY FLUID < 2.0 g/dL (NONE ESTABLISHED)
[2018-07-25] MEDS: Albumin Human 25% (12.5 gm/50 ml) IV SCH (16:42)
[2018-07-25] MEDS ORDERED: Albumin Human 25% (12.5 gm/50 ml) IV SCH (17:00)
[2018-07-25 20:27] LABS: BF GROSS APPEARANCE SL CLOUDY (CLEAR)
[2018-07-25 20:49] LABS: BODY FLUID MONO/MACROPHAGE 17 % (0-0)
[2018-07-25 20:50] LABS: BODY FLUID TOTAL COUNT 100 (0-0)
--- NOTE | 2018-07-25 23:04 | CP.PCM.PN ---
Subjective - Date & Time of Evaluation Date of Evaluation: 07/25/18 Time of Evaluation: 09:00 - Subjective Subjective: Patient with abdominal distention. Denies pain. Objective - Vital Signs/Intake and Output Vital Signs (last 24 hours): Temp Pulse Resp BP Pulse Ox 98.0 F 60 19 121/61 98 07/25/18 19:45 07/25/18 19:45 07/25/18 19:45 07/25/18 19:45 07/25/18 19:45 - Medications Medications: Current Medications Albumin Human (Albumin Human 25% (12.5 Gm/50 Ml)) 12.5 gm IV Q8 [facility] Last Admin: 07/25/18 16:42 Dose: 12.5 gm Dextrose (Dextrose 50% Inj) 0 ml IV STAT PRN; Protocol PRN Reason: Hypoglycemia Protocol Dextrose (Glutose 15) 0 gm PO ONCE PRN; Protocol PRN Reason: Hypoglycemia Protocol Dicyclomine HCl (Bentyl) 10 mg PO Q8 PRN PRN Reason: abdominal pain/cramps Enoxaparin Sodium (Lovenox) 30 mg SC DAILY [facility]; Protocol Last Admin: 07/25/18 09:07 Dose: 30 mg Glucagon (Glucagen Diagnostic Kit) 0 mg IM STAT PRN; Protocol PRN Reason: Hypoglycemia Protocol Hydralazine HCl (Apresoline) 10 mg PO TID [facility] Last Admin: 07/25/18 16:42 Dose: 10 mg Azithromycin 500 mg/ Sodium (Chloride) 250 mls @ 250 mls/hr IVPB DAILY [facility]; Protocol Last Admin: 07/25/18 09:03 Dose: 250 mls/hr Piperacillin Sod/Tazobactam (Sod 2.25 gm/ Sodium Chloride) 100 mls @ 100 mls/hr IVPB Q12H [facility]; Protocol Last Admin: 07/25/18 22:08 Dose: 100 mls/hr Dextrose/Sodium Chloride (Dextrose 5%/0.45% Ns 1000 Ml) 1,000 mls @ 42 mls/hr IV .[id number] [facility] Stop: 07/26/18 09:51 Last Admin: 07/25/18 11:50 Dose: 42 mls/hr Insulin Human Regular (Humulin R) 0 units SC ACHS [facility]; Protocol Last Admin: 07/25/18 22:06 Dose: Not Given Lactobacillus Acidophilus (Bacid Acidophilus) 1 cap PO BID [facility] Last Admin: 07/25/18 16:42 Dose: 1 cap Levalbuterol HCl (Xopenex) 1.25 mg INH RQ8 PRN PRN Reason: Shortness of Breath Last Admin: 07/24/18 12:27 Dose: 1.25 mg Levalbuterol HCl (Xopenex) 0.63 mg INH RQ8 [facility] Last Admin: 07/25/18 15:28 Dose: Not Given Metoprolol Succinate (Toprol Xl) 50 mg PO DAILY [facility] Last Admin: 07/25/18 09:07 Dose: 50 mg Morphine Sulfate (Morphine) 2 mg IVP Q6 PRN PRN Reason: Pain, Mild (1-3) Morphine Sulfate (Morphine) 4 mg IVP Q4 PRN PRN Reason: Pain, moderate (4-7) Oseltamivir Phosphate (Tamiflu Cap) 30 mg PO BID [facility]; Protocol Last Admin: 07/25/18 16:42 Dose: 30 mg Repaglinide (Prandin) 0.5 mg PO TIDAC [facility] Last Admin: 07/25/18 16:42 Dose: 0.5 mg Simethicone (Mylicon Liq) 40 mg PO Q6 PRN PRN Reason: Flatulence Sodium Bicarbonate (Sodium Bicarbonate Tab) 650 mg PO Q6 [facility] Last Admin: 07/25/18 22:08 Dose: 650 mg Spironolactone (Aldactone) 25 mg PO BID [facility] Last Admin: 07/25/18 16:42 Dose: 25 mg - Labs Labs: 07/25/18 05:40 07/25/18 05:40 PT 12.7 Seconds (9.8-13.1) 07/25/18 12:15 INR 1.1 07/25/18 12:15 APTT 31.0 Seconds (25.6-37.1) 07/25/18 12:15 - Head Exam Head Exam: ATRAUMATIC - Eye Exam Eye Exam: Normal appearance - ENT Exam ENT Exam: Normal Exam - Neck Exam Neck Exam: Full ROM - Respiratory Exam Respiratory Exam: Clear to Ausculation Bilateral - Cardiovascular Exam Cardiovascular Exam: REGULAR RHYTHM - GI/Abdominal Exam GI & Abdominal Exam: Distended, Soft Assessment and Plan (1) 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 Status: Chronic (2) CHF (congestive heart failure) Assessment & Plan: Echo noted showing severe MR , moderate Aortic stenosis, and global LV hypokinesis, Status: Acute
[2018-07-26] MEDS: Albumin Human 25% (12.5 gm/50 ml) IV SCH ×3 (00:57→16:12)
--- NOTE | 2018-07-26 03:03 | CON ---
DATE: 07/25/2018 ENDOCRINOLOGY CONSULT LOCATION: Room 413. 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 PAST MEDICAL HISTORY: He has a recent CAT scan evidence of liver cirrhosis in 01/2018 with supervening ascites and abdominal distention. History of cardiac tachyarrhythmias with chronic atrial fibrillation, and previously on Xarelto with subsequent bleeding diathesis and marked anemia as noted. History of recent evaluation for celiac disease and generalized cutaneous rashes as noted. History of type 2 diabetes, previously on metformin therapy but was discontinued because of underlying chronic kidney disease and elevated creatinine levels as noted. History of hypertension and dyslipidemia, history of nonalcoholic steatohepatitis or FENG with subsequent liver cirrhosis as mentioned above. He also has underlying splenomegaly as noted. FAMILY HISTORY: Positive for hypertension, diabetes, and bladder and pancreatic cancers as noted. 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 Has a very supportive family and her daughter, Isha, at bedside is very attentive to his needs as noted. REVIEW OF SYSTEMS: Admits to generalized body weakness with suboptimal energy level and supervening episodic bouts of dizziness and lightheadedness with right frontal headache. No chest pains but admits to pleuritic chest pain with productive cough and upper nasal and bronchial congestion. He is extremely suboptimal and variable with very minimal meal portions as observed, and also as per the daughter at bedside. He admits to persistent nausea and dyspepsia with discomfort from his progressively worsening abdominal distention. Also admits to episodic loose, watery diarrhea which has raised to the gluten sensitivity. PHYSICAL EXAMINATION: GENERAL: This is an average built male, in no apparent distress. VITAL SIGNS: Blood pressure of 140/80, pulse of 100 beats per minute and regular, temperature 98, respirations 20. Height is 6 feet. Weight is 197 pounds. HEENT: Head normocephalic. Eyes anicteric with pink conjunctivae. Funduscopy not possible at this time. Ears, nose and throat, otherwise, normal. NECK: Supple. Thyroid gland is normal in size. No carotid bruits or any cervical adenopathy. CARDIOPULMONARY: Some adynamic precordium. S1, S2, rapid and regular. LUNGS: Show scattered rhonchi with bibasilar dullness. ABDOMEN: Distended and firm with hypoactive bowel sounds. EXTREMITIES: No peripheral edema. Pulses are +2 bilaterally. LABORATORY DATA: His hemoglobin is 10.9, hematocrit of 32.2, MCV 96, platelets 84,000. Chemistry showed a BUN of 81, sodium 142, potassium 3.9, chloride 112, CO2 is 18, glucose is 124, and creatinine is 3.1. His glucose levels have ranged from 132 to 154 mg/dL. ASSESSMENT: This is an 88-year-old male with uncontrolled type 2 diabetes with glycemic fluctuations as noted, presenting here with an acute influenza syndrome with supervening right lower lobe pneumonitis and is now being referred for diabetic evaluation and management. He also has significant abdominal distention with marked ascites from underlying liver cirrhosis from a so called nonalcoholic steatohepatitis as noted. PLAN OF MANAGEMENT: We will do Fingerstick glucose testing with no extra insulin coverage as ordered. However, we will add a low-dose short-acting oral hypoglycemic therapy with Prandin given as 0.5 mg t.i.d. before meals as ordered. We will also obtain a hemoglobin A1c to obtain his prior glycemic control and baseline thyroid function studies will be ordered. We will obtain serial chemistries and supplement accordingly as needed. We will follow. Sruthi Alcaraz MD
[2018-07-26 05:35] LABS: HEMOGLOBIN 10.2 g/dL (12.0-18.0); MEAN CELL VOLUME 96.5 fl (80.0-94.0); MEAN CORPUSCULAR HEMOGLOBIN 32.4 pg (27.0-31.0); MEAN CORPUSCULAR HGB CONC 33.6 g/dL (33.0-37.0); RBC 3.13 Mil/uL (4.40-5.90); RED CELL DISTRIBUTION WIDTH 15.2 % (11.5-14.5); WHITE BLOOD COUNT 4.3 K/uL (4.8-10.8)
[2018-07-26 05:50] LABS: ALBUMIN 3.1 g/dL (3.5-5.0); CALCIUM 8.5 mg/dL (8.4-10.2)
[2018-07-26] MEDS: Levalbuterol 0.63 MG/3 ML Inhal Soln UD INH SCH ×2 (07:40→16:01)
--- NOTE | 2018-07-26 09:18 | CP.PCM.PN ---
Subjective - Date & Time of Evaluation Date of Evaluation: 07/26/18 Time of Evaluation: 08:30 - Subjective Subjective: FEELS BETTER AFTER PARACENTESIS BREATHING EASIER LESS ABDOMINAL DISCOMFORT Objective - Vital Signs/Intake and Output Vital Signs (last 24 hours): Temp Pulse Resp BP Pulse Ox 98.0 F 57 L 16 130/49 L 96 07/26/18 06:23 07/26/18 06:23 07/26/18 06:23 07/26/18 06:23 07/26/18 06:23 Intake and Output: 07/26/18 07/26/18 06:59 18:59 Intake Total 800 Balance 800 - Medications Medications: Current Medications Albumin Human (Albumin Human 25% (12.5 Gm/50 Ml)) 12.5 gm IV Q8 [facility] Last Admin: 07/26/18 00:57 Dose: 12.5 gm Dextrose (Dextrose 50% Inj) 0 ml IV STAT PRN; Protocol PRN Reason: Hypoglycemia Protocol Dextrose (Glutose 15) 0 gm PO ONCE PRN; Protocol PRN Reason: Hypoglycemia Protocol Dicyclomine HCl (Bentyl) 10 mg PO Q8 PRN PRN Reason: abdominal pain/cramps Enoxaparin Sodium (Lovenox) 30 mg SC DAILY [facility]; Protocol Last Admin: 07/25/18 09:07 Dose: 30 mg Glucagon (Glucagen Diagnostic Kit) 0 mg IM STAT PRN; Protocol PRN Reason: Hypoglycemia Protocol Hydralazine HCl (Apresoline) 10 mg PO TID [facility] Last Admin: 07/25/18 16:42 Dose: 10 mg Azithromycin 500 mg/ Sodium (Chloride) 250 mls @ 250 mls/hr IVPB DAILY [facility]; Protocol Last Admin: 07/25/18 09:03 Dose: 250 mls/hr Piperacillin Sod/Tazobactam (Sod 2.25 gm/ Sodium Chloride) 100 mls @ 100 mls/hr IVPB Q12H [facility]; Protocol Last Admin: 07/25/18 22:08 Dose: 100 mls/hr Dextrose/Sodium Chloride (Dextrose 5%/0.45% Ns 1000 Ml) 1,000 mls @ 42 mls/hr IV .[id number] [facility] Stop: 07/26/18 09:51 Last Admin: 07/25/18 11:50 Dose: 42 mls/hr Insulin Human Regular (Humulin R) 0 units SC ACHS [facility]; Protocol Last Admin: 07/25/18 22:06 Dose: Not Given Lactobacillus Acidophilus (Bacid Acidophilus) 1 cap PO BID [facility] Last Admin: 07/25/18 16:42 Dose: 1 cap Levalbuterol HCl (Xopenex) 1.25 mg INH RQ8 PRN PRN Reason: Shortness of Breath Last Admin: 07/24/18 12:27 Dose: 1.25 mg Levalbuterol HCl (Xopenex) 0.63 mg INH RQ8 [facility] Last Admin: 07/26/18 07:40 Dose: 0.63 mg Metoprolol Succinate (Toprol Xl) 50 mg PO DAILY [facility] Last Admin: 07/25/18 09:07 Dose: 50 mg Morphine Sulfate (Morphine) 2 mg IVP Q6 PRN PRN Reason: Pain, Mild (1-3) Morphine Sulfate (Morphine) 4 mg IVP Q4 PRN PRN Reason: Pain, moderate (4-7) Oseltamivir Phosphate (Tamiflu Cap) 30 mg PO BID [facility]; Protocol Last Admin: 07/25/18 16:42 Dose: 30 mg Repaglinide (Prandin) 0.5 mg PO TIDAC [facility] Last Admin: 07/25/18 16:42 Dose: 0.5 mg Simethicone (Mylicon Liq) 40 mg PO Q6 PRN PRN Reason: Flatulence Sodium Bicarbonate (Sodium Bicarbonate Tab) 650 mg PO Q6 [facility] Last Admin: 07/26/18 04:31 Dose: 650 mg Spironolactone (Aldactone) 25 mg PO BID [facility] Last Admin: 07/25/18 16:42 Dose: 25 mg - Labs Labs: 07/26/18 05:00 07/26/18 05:00 PT 12.7 Seconds (9.8-13.1) 07/25/18 12:15 INR 1.1 07/25/18 12:15 APTT 31.0 Seconds (25.6-37.1) 07/25/18 12:15 - Respiratory Exam Respiratory Exam: Decreased Breath Sounds, Rales - Cardiovascular Exam Cardiovascular Exam: REGULAR RHYTHM, +S1, +S2 - Extremities Exam Extremities Exam: Pedal Edema - Additional Findings 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 IR NOTE REVIEWED AND 2L OF FLUID REMOVED DURING PARACENTESIS ENDOCRINOLOGY CONSULT REVIEW AND PATIENT PLACED ON PRANDIN WITH GLUCOSE LEVELS IN THE 80'S PLT CT 74K BUN/CR 76/3.1 Assessment and Plan - Assessment and Plan (Free Text) Assessment: KARMEN ON CRF PNEUMONIA AND INFLUENZA HYPERTENSION-BETTER CONTROLLED ON METOPROLOL AND HYDRALAZINE TYPE 2 DM-BETTER CONTROLLED ON PRANDIN LIVER CIRRHOSIS THROMBOCYTOPENIA-POSSIBLY FROM HEPARIN(HIT?) OR INFECTION S/P PARACENTESIS YESTERDAY Plan: WILL STOP LOVENOX AND MONITOR PLATELET COUNT-NURSE INFORMED BEFORE DOSE WAS GIVEN TODAY CONTINUE ANTIBIOTICS, TAMIFLU, PRANDIN, METOPROLOL, HYDRALAZINE, IV FLUIDS, ALBUMEN, SPIRONOLACTONE, XOPENEX
[2018-07-26] MEDS: Metoprolol Succinate 50 mg XL Tab PO SCH (09:49)
[2018-07-26] MEDS: Insulin Regular 100 units/ml SC SCH ×3 (09:52→18:33)
[2018-07-26] MEDS: Dextrose 5%/0.45% NS 1,000 ML IV SCH (09:54)
[2018-07-26] MEDS: Azithromycin 500 MG in Sodium Chloride 0.9% 250 ML IVPB SCH (09:54)
[2018-07-26] MEDS: Lactobacillus Acidophilus 500 MU Cap PO SCH ×2 (09:59→16:11)
--- NOTE | 2018-07-26 10:21 | CP.PCM.PN ---
Subjective - Date & Time of Evaluation Date of Evaluation: 07/26/18 Time of Evaluation: 07:15 - Subjective Subjective: Dr. Ascencio was seen and examined at bedside. No acute events overnight. Gaining strenghth. Reports decreased coughing. Objective - Vital Signs/Intake and Output Vital Signs (last 24 hours): Temp Pulse Resp BP Pulse Ox 98.1 F 65 20 146/77 96 07/26/18 09:51 07/26/18 09:51 07/26/18 09:51 07/26/18 09:51 07/26/18 09:51 Intake and Output: 07/26/18 07/26/18 06:59 18:59 Intake Total 800 Balance 800 - Medications Medications: Current Medications Albumin Human (Albumin Human 25% (12.5 Gm/50 Ml)) 12.5 gm IV Q8 [facility] Last Admin: 07/26/18 09:50 Dose: 12.5 gm Dextrose (Dextrose 50% Inj) 0 ml IV STAT PRN; Protocol PRN Reason: Hypoglycemia Protocol Dextrose (Glutose 15) 0 gm PO ONCE PRN; Protocol PRN Reason: Hypoglycemia Protocol Dicyclomine HCl (Bentyl) 10 mg PO Q8 PRN PRN Reason: abdominal pain/cramps Glucagon (Glucagen Diagnostic Kit) 0 mg IM STAT PRN; Protocol PRN Reason: Hypoglycemia Protocol Hydralazine HCl (Apresoline) 10 mg PO TID [facility] Last Admin: 07/26/18 09:51 Dose: 10 mg Azithromycin 500 mg/ Sodium (Chloride) 250 mls @ 250 mls/hr IVPB DAILY [facility]; Protocol Last Admin: 07/26/18 09:54 Dose: 250 mls/hr Piperacillin Sod/Tazobactam (Sod 2.25 gm/ Sodium Chloride) 100 mls @ 100 mls/hr IVPB Q12H [facility]; Protocol Last Admin: 07/26/18 09:53 Dose: 100 mls/hr Insulin Human Regular (Humulin R) 0 units SC ACHS [facility]; Protocol Last Admin: 07/26/18 09:52 Dose: Not Given Lactobacillus Acidophilus (Bacid Acidophilus) 1 cap PO BID [facility] Last Admin: 07/26/18 09:59 Dose: 1 cap Levalbuterol HCl (Xopenex) 1.25 mg INH RQ8 PRN PRN Reason: Shortness of Breath Last Admin: 07/24/18 12:27 Dose: 1.25 mg Levalbuterol HCl (Xopenex) 0.63 mg INH RQ8 [facility] Last Admin: 07/26/18 07:40 Dose: 0.63 mg Metoprolol Succinate (Toprol Xl) 50 mg PO DAILY [facility] Last Admin: 07/26/18 09:49 Dose: 50 mg Morphine Sulfate (Morphine) 2 mg IVP Q6 PRN PRN Reason: Pain, Mild (1-3) Morphine Sulfate (Morphine) 4 mg IVP Q4 PRN PRN Reason: Pain, moderate (4-7) Oseltamivir Phosphate (Tamiflu Cap) 30 mg PO BID [facility]; Protocol Last Admin: 07/26/18 09:49 Dose: 30 mg Repaglinide (Prandin) 0.5 mg PO TIDAC [facility] Last Admin: 07/26/18 09:52 Dose: 0.5 mg Simethicone (Mylicon Liq) 40 mg PO Q6 PRN PRN Reason: Flatulence Sodium Bicarbonate (Sodium Bicarbonate Tab) 650 mg PO Q6 [facility] Last Admin: 07/26/18 09:49 Dose: 650 mg Spironolactone (Aldactone) 25 mg PO BID [facility] Last Admin: 07/26/18 09:49 Dose: 25 mg - Labs Labs: 07/26/18 05:00 07/26/18 05:00 PT 12.7 Seconds (9.8-13.1) 07/25/18 12:15 INR 1.1 07/25/18 12:15 APTT 31.0 Seconds (25.6-37.1) 07/25/18 12:15 - Constitutional Appears: No Acute Distress - Eye Exam Eye Exam: EOMI - ENT Exam ENT Exam: Mucous Membranes Moist - Respiratory Exam Respiratory Exam: Rales (Mild L lower lung). absent: Wheezes - Cardiovascular Exam Cardiovascular Exam: REGULAR RHYTHM, +S1, +S2 - GI/Abdominal Exam GI & Abdominal Exam: Distended (Mild). absent: Tenderness - Neurological Exam Neurological Exam: Alert, Awake, Oriented x3 - Psychiatric Exam Psychiatric exam: Normal Affect, Normal Mood Assessment and Plan - Assessment and Plan (Free Text) Assessment: 88 yo M with pmxhx of Afib, Diabetes, HTN, liver cirrhosis, celiac disease admitted for pneumonia, influenza and acute kidney injury. Plan: CXR: R pleural effusions CT chest/abdo/pelvis: 1. Active CHF suggested mild right and minimal left pleural effusions noted. Cardiomegaly. Pulmonary vascular congestion. No pericardial effusion. 2. Limited patchy atelectasis or infiltrate right middle lobe with limited atelectasis favored at the dependent bilateral lower lobes and the lingula. 3. Cirrhosis with limited gastrohepatic ligament varices. Abdominal pelvic ascites felt to be related to cirrhosis. Splenomegaly to 15.9 cm, likely related to cirrhosis and possible hepatofugal blood flow. 4. Borderline segmental colitis descending colon. 5. Enlarged prostate gland. ECHO: EF 35-40%; moderate global hypokinesis of LV, L atrium severely dilated; mild/mod AV stenosis, mod to evere MV regurge; mild tricuspid regurg. Blood culture: NG X 3 days Urine culture: NG Renal US: Pt declined CKD stage 3 -BUN: 94>87>81>76, Cr: 2.9>2.9>3.1>3.1 -Nephrology: Dr. Orozco: further recs appreciated; spironolactone -s/p Lasix 20 mg x1 yesterday -s/p IVF: D5 1/2 NS @ 42 -Renal diet: gluten free -f/u labs, renal US Influenza A -Afebrile -Tamiflu 30 mg BID (renal dose) -Isolation precaution: droplet Liver cirrhosis FENG -with abdominal ascites and splenomegaly -Pt states was incidentally found on prior CT abdo -LFT: wnl -GI: Dr. Leo: Possible upper endoscopy -Hepatitis: negative -s/p paracentesis: 2 L on 07/25/2018 R pleural effusion -cxr -chronic -wheezing: resolved with levalbuterol -R sided -DDX PNA -Xopenex prn -Pulmonology: Dr. Person: levalbuterol nebs -IVABX: Azithromycin and Zosyn Thromobcytopenia -72 -Hold Lovenox -continue to monitor CHF -Acute -BNP: 29986 -ECHO Afib -NSR with PACs and benign PVCs -Tele: cardiac technologist -hx of eliquis: d/c due to (+) heme in stool -Cardiology: Dr. Ca:metoprolol, avapro HTN -HCTZ recently discontinued by Dr. Ca -Cardiology: Dr. Ca: restart aldactone, paracentesis, IVF 40 cc/hr -Metoprolol 50 mg QD, Hydralazine 10 mg PO TID -continue to monitor BP DM -Metformin held -Accuchecks -ICS -hypoglycemia protocol -Endocrinology: Dr. Alcaraz: Flynn Celiac disease; chronic -Renal diet with gluten free DVT prophylaxis -SCD -Held Lovenox 30 mg sc PT: Continue with therapy Case and plan d/w Dr. Anabell Jasso MD PGY2
--- NOTE | 2018-07-26 11:23 | US ---
Date of Procedure: 07/25/2018 PROCEDURE: Ultrasound-guided paracentesis, CPT 44547 Medications: 7 cc 1% Lidocaine HISTORY: Ascites, abdominal pain, cirrhosis TECHNIQUE: Following informed consent , the patient was placed supine on the stretcher and the site was marked. A limited abdominal ultrasound was performed that showed a large amount of intra-abdominal fluid. Procedural time out was called and the Pt's abdomen was marked and prepped and draped in the usual sterile fashion. Ultrasound-guided large volume paracentesis performed. A total of 2.2 liters of straw colored fluid was removed without complication. IMPRESSION: Ultrasound-guided paracentesis with removal of 2.2 liters of straw colored fluid. .
--- NOTE | 2018-07-26 12:07 | CP.PCM.PN ---
Subjective - Date & Time of Evaluation Date of Evaluation: 07/26/18 Time of Evaluation: 12:02 - Subjective Subjective: Seated in bedside chair. Remains afebrile, mildly hypertendive, well oxygenated. Labs reviewed, inclusive of paracentesis.. Occasional congested cough, non-productive. Paracentesis done yesterday with removal of 2 L. Today would be day #5 of oseltamivir. Neck is supple and trachea midline. No dullness on chest percussion. Breath sounds are present bilaterally. Medium rales are heard in the right base. No wheezes or bronchial breath sounds. Trace dependant edema both ankles. Request CXR for the AM. Monitor plts, HIT antibody requested. Completed 4 days of antimicrobial rx. Objective - Vital Signs/Intake and Output Vital Signs (last 24 hours): Temp Pulse Resp BP Pulse Ox 98.1 F 65 20 146/77 96 07/26/18 09:51 07/26/18 09:51 07/26/18 09:51 07/26/18 09:51 07/26/18 09:51 Intake and Output: 07/26/18 07/26/18 11:59 23:59 Intake Total 800 Balance 800 - Medications Medications: Current Medications Albumin Human (Albumin Human 25% (12.5 Gm/50 Ml)) 12.5 gm IV Q8 [facility] Last Admin: 07/26/18 09:50 Dose: 12.5 gm Dextrose (Dextrose 50% Inj) 0 ml IV STAT PRN; Protocol PRN Reason: Hypoglycemia Protocol Dextrose (Glutose 15) 0 gm PO ONCE PRN; Protocol PRN Reason: Hypoglycemia Protocol Dicyclomine HCl (Bentyl) 10 mg PO Q8 PRN PRN Reason: abdominal pain/cramps Glucagon (Glucagen Diagnostic Kit) 0 mg IM STAT PRN; Protocol PRN Reason: Hypoglycemia Protocol Hydralazine HCl (Apresoline) 10 mg PO TID [facility] Last Admin: 07/26/18 09:51 Dose: 10 mg Azithromycin 500 mg/ Sodium (Chloride) 250 mls @ 250 mls/hr IVPB DAILY [facility]; Protocol Last Admin: 07/26/18 09:54 Dose: 250 mls/hr Piperacillin Sod/Tazobactam (Sod 2.25 gm/ Sodium Chloride) 100 mls @ 100 mls/hr IVPB Q12H [facility]; Protocol Last Admin: 07/26/18 09:53 Dose: 100 mls/hr Insulin Human Regular (Humulin R) 0 units SC ACHS [facility]; Protocol Last Admin: 07/26/18 09:52 Dose: Not Given Lactobacillus Acidophilus (Bacid Acidophilus) 1 cap PO BID [facility] Last Admin: 07/26/18 09:59 Dose: 1 cap Levalbuterol HCl (Xopenex) 1.25 mg INH RQ8 PRN PRN Reason: Shortness of Breath Last Admin: 07/24/18 12:27 Dose: 1.25 mg Levalbuterol HCl (Xopenex) 0.63 mg INH RQ8 [facility] Last Admin: 07/26/18 07:40 Dose: 0.63 mg Metoprolol Succinate (Toprol Xl) 50 mg PO DAILY [facility] Last Admin: 07/26/18 09:49 Dose: 50 mg Morphine Sulfate (Morphine) 2 mg IVP Q6 PRN PRN Reason: Pain, Mild (1-3) Morphine Sulfate (Morphine) 4 mg IVP Q4 PRN PRN Reason: Pain, moderate (4-7) Oseltamivir Phosphate (Tamiflu Cap) 30 mg PO BID [facility]; Protocol Last Admin: 07/26/18 09:49 Dose: 30 mg Repaglinide (Prandin) 0.5 mg PO TIDAC [facility] Last Admin: 07/26/18 09:52 Dose: 0.5 mg Simethicone (Mylicon Liq) 40 mg PO Q6 PRN PRN Reason: Flatulence Sodium Bicarbonate (Sodium Bicarbonate Tab) 650 mg PO Q6 [facility] Last Admin: 07/26/18 09:49 Dose: 650 mg Spironolactone (Aldactone) 25 mg PO BID [facility] Last Admin: 07/26/18 09:49 Dose: 25 mg - Labs Labs: 07/26/18 05:00 07/26/18 05:00 PT 12.7 Seconds (9.8-13.1) 07/25/18 12:15 INR 1.1 07/25/18 12:15 APTT 31.0 Seconds (25.6-37.1) 07/25/18 12:15 Assessment and Plan (1) Pneumonia Status: Acute (2) Influenza A Status: Acute (3) 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 Status: Acute
--- NOTE | 2018-07-26 12:34 | CP.PCM.PN ---
Subjective - Subjective Subjective: NO NEW COMPLAINTS Objective - Vital Signs/Intake and Output Vital Signs (last 24 hours): Temp Pulse Resp BP Pulse Ox 98.1 F 65 20 146/77 96 07/26/18 09:51 07/26/18 09:51 07/26/18 09:51 07/26/18 09:51 07/26/18 09:51 Intake and Output: 07/26/18 07/26/18 06:59 18:59 Intake Total 800 Balance 800 - Medications Medications: Current Medications Albumin Human (Albumin Human 25% (12.5 Gm/50 Ml)) 12.5 gm IV Q8 [facility] Last Admin: 07/26/18 09:50 Dose: 12.5 gm Dextrose (Dextrose 50% Inj) 0 ml IV STAT PRN; Protocol PRN Reason: Hypoglycemia Protocol Dextrose (Glutose 15) 0 gm PO ONCE PRN; Protocol PRN Reason: Hypoglycemia Protocol Dicyclomine HCl (Bentyl) 10 mg PO Q8 PRN PRN Reason: abdominal pain/cramps Glucagon (Glucagen Diagnostic Kit) 0 mg IM STAT PRN; Protocol PRN Reason: Hypoglycemia Protocol Hydralazine HCl (Apresoline) 10 mg PO TID [facility] Last Admin: 07/26/18 09:51 Dose: 10 mg Azithromycin 500 mg/ Sodium (Chloride) 250 mls @ 250 mls/hr IVPB DAILY [facility]; Protocol Last Admin: 07/26/18 09:54 Dose: 250 mls/hr Piperacillin Sod/Tazobactam (Sod 2.25 gm/ Sodium Chloride) 100 mls @ 100 mls/hr IVPB Q12H [facility]; Protocol Last Admin: 07/26/18 09:53 Dose: 100 mls/hr Insulin Human Regular (Humulin R) 0 units SC ACHS [facility]; Protocol Last Admin: 07/26/18 09:52 Dose: Not Given Lactobacillus Acidophilus (Bacid Acidophilus) 1 cap PO BID [facility] Last Admin: 07/26/18 09:59 Dose: 1 cap Levalbuterol HCl (Xopenex) 1.25 mg INH RQ8 PRN PRN Reason: Shortness of Breath Last Admin: 07/24/18 12:27 Dose: 1.25 mg Levalbuterol HCl (Xopenex) 0.63 mg INH RQ8 [facility] Last Admin: 07/26/18 07:40 Dose: 0.63 mg Metoprolol Succinate (Toprol Xl) 50 mg PO DAILY [facility] Last Admin: 07/26/18 09:49 Dose: 50 mg Morphine Sulfate (Morphine) 2 mg IVP Q6 PRN PRN Reason: Pain, Mild (1-3) Morphine Sulfate (Morphine) 4 mg IVP Q4 PRN PRN Reason: Pain, moderate (4-7) Oseltamivir Phosphate (Tamiflu Cap) 30 mg PO BID [facility]; Protocol Last Admin: 07/26/18 09:49 Dose: 30 mg Repaglinide (Prandin) 0.5 mg PO TIDAC [facility] Last Admin: 07/26/18 09:52 Dose: 0.5 mg Simethicone (Mylicon Liq) 40 mg PO Q6 PRN PRN Reason: Flatulence Sodium Bicarbonate (Sodium Bicarbonate Tab) 650 mg PO Q6 [facility] Last Admin: 07/26/18 09:49 Dose: 650 mg Spironolactone (Aldactone) 25 mg PO BID [facility] Last Admin: 07/26/18 09:49 Dose: 25 mg - Labs Labs: 07/26/18 05:00 07/26/18 05:00 PT 12.7 Seconds (9.8-13.1) 07/25/18 12:15 INR 1.1 07/25/18 12:15 APTT 31.0 Seconds (25.6-37.1) 07/25/18 12:15
--- NOTE | 2018-07-26 12:50 | CP.PCM.PN ---
Subjective - Date & Time of Evaluation Date of Evaluation: 07/26/18 Time of Evaluation: 12:50 - Subjective Subjective: Patient feeling much better somewhat less shortness of breath Vital signs noted to be stable No urine output recorded I spoke to the nursing staff and the nursing direct care supervisor for this issue we need to record intake and output clearly. Also I spoke to Dr. sierra the patient to call the nurse every time we make urine to make sure about recording urine output Objective - Vital Signs/Intake and Output Vital Signs (last 24 hours): Temp Pulse Resp BP Pulse Ox 98.1 F 65 20 146/77 96 07/26/18 09:51 07/26/18 09:51 07/26/18 09:51 07/26/18 09:51 07/26/18 09:51 Intake and Output: 07/26/18 07/26/18 06:59 18:59 Intake Total 800 Balance 800 - Medications Medications: Current Medications Albumin Human (Albumin Human 25% (12.5 Gm/50 Ml)) 12.5 gm IV Q8 [facility] Last Admin: 07/26/18 09:50 Dose: 12.5 gm Dextrose (Dextrose 50% Inj) 0 ml IV STAT PRN; Protocol PRN Reason: Hypoglycemia Protocol Dextrose (Glutose 15) 0 gm PO ONCE PRN; Protocol PRN Reason: Hypoglycemia Protocol Dicyclomine HCl (Bentyl) 10 mg PO Q8 PRN PRN Reason: abdominal pain/cramps Glucagon (Glucagen Diagnostic Kit) 0 mg IM STAT PRN; Protocol PRN Reason: Hypoglycemia Protocol Hydralazine HCl (Apresoline) 10 mg PO TID [facility] Last Admin: 07/26/18 09:51 Dose: 10 mg Azithromycin 500 mg/ Sodium (Chloride) 250 mls @ 250 mls/hr IVPB DAILY [facility]; Protocol Last Admin: 07/26/18 09:54 Dose: 250 mls/hr Piperacillin Sod/Tazobactam (Sod 2.25 gm/ Sodium Chloride) 100 mls @ 100 mls/hr IVPB Q12H [facility]; Protocol Last Admin: 07/26/18 09:53 Dose: 100 mls/hr Insulin Human Regular (Humulin R) 0 units SC ACHS [facility]; Protocol Last Admin: 07/26/18 09:52 Dose: Not Given Lactobacillus Acidophilus (Bacid Acidophilus) 1 cap PO BID [facility] Last Admin: 07/26/18 09:59 Dose: 1 cap Levalbuterol HCl (Xopenex) 1.25 mg INH RQ8 PRN PRN Reason: Shortness of Breath Last Admin: 07/24/18 12:27 Dose: 1.25 mg Levalbuterol HCl (Xopenex) 0.63 mg INH RQ8 [facility] Last Admin: 07/26/18 07:40 Dose: 0.63 mg Metoprolol Succinate (Toprol Xl) 50 mg PO DAILY [facility] Last Admin: 07/26/18 09:49 Dose: 50 mg Morphine Sulfate (Morphine) 2 mg IVP Q6 PRN PRN Reason: Pain, Mild (1-3) Morphine Sulfate (Morphine) 4 mg IVP Q4 PRN PRN Reason: Pain, moderate (4-7) Oseltamivir Phosphate (Tamiflu Cap) 30 mg PO BID [facility]; Protocol Last Admin: 07/26/18 09:49 Dose: 30 mg Repaglinide (Prandin) 0.5 mg PO TIDAC [facility] Last Admin: 07/26/18 09:52 Dose: 0.5 mg Simethicone (Mylicon Liq) 40 mg PO Q6 PRN PRN Reason: Flatulence Sodium Bicarbonate (Sodium Bicarbonate Tab) 650 mg PO Q6 [facility] Last Admin: 07/26/18 09:49 Dose: 650 mg Spironolactone (Aldactone) 25 mg PO BID [facility] Last Admin: 07/26/18 09:49 Dose: 25 mg - Labs Labs: 07/26/18 05:00 07/26/18 05:00 PT 12.7 Seconds (9.8-13.1) 07/25/18 12:15 INR 1.1 07/25/18 12:15 APTT 31.0 Seconds (25.6-37.1) 07/25/18 12:15 - Constitutional Appears: No Acute Distress - Eye Exam Eye Exam: Conjunctival injection - ENT Exam ENT Exam: Mucous Membranes Moist - Neck Exam Neck Exam: absent: Lymphadenopathy - Respiratory Exam Respiratory Exam: absent: Chest Wall Tenderness - Cardiovascular Exam Cardiovascular Exam: REGULAR RHYTHM. absent: Gallop, JVD, Rubs - GI/Abdominal Exam GI & Abdominal Exam: Distended, Soft, Normal Bowel Sounds - Extremities Exam Extremities Exam: absent: Calf Tenderness - Back Exam Back Exam: absent: CVA tenderness (L), CVA tenderness (R) - Neurological Exam Neurological Exam: Alert - Psychiatric Exam Psychiatric exam: Normal Affect - Skin Skin Exam: absent: Cyanosis Assessment and Plan (1) KARMEN (acute kidney injury) Assessment & Plan: acute kidney injury possible from dehydration also patient was taking hydrochlorothiazide and WENDI inhibitor super imposed on chronic kidney disease perhaps stage III from the history when serum creatinine I am told in the range of 1.[address] Sierra told me today that his BUN in May was in the range of 140+, I asked him to bring that the blood test for May Patient has abdominal ascites and leg edema with a history of liver cirrhosis Hypoalbuminemia pneumonia? Chronic celiac disease history Diabetes mellitus Hypertension flu metabolic acidosis hyperurecemia Plan BUN trending down slightly in the range of 76 the latest with creatinine stable around 3.1. Status post paracentesis with over 2 L removed. Again no record of urine output to decide about adjustment of the Aldactone he may need to increase the does to get better diuresis. Repeat serum uric acid if still high will need to restart allopurinol carefully. DC IV fluid and continue 25% albumin every 8 hours for the next 3 days. Overall patient improving and doing somewhat better Discussed with Dr. Person and Dr. Ca Status: Chronic
--- NOTE | 2018-07-26 13:15 | CP.PCM.DIS ---
Provider - Provider Date of Admission: 07/22/18 12:41 Attending physician: Manav Rubin MD Primary care physician: Papo Ca MD Consults: 07/22/18 13:28 Nephrology Consult Stat Comment: Consulting Provider: Luís Orozco Consulting Physician: Luís Orozco Reason for Consult: ARF 07/22/18 13:29 Cardiology Consult Stat Comment: Consulting Provider: Papo Ca Consulting Physician: Papo Ca Reason for Consult: afib history 07/22/18 13:42 Pulmonology Consult Stat Comment: Consulting Provider: Nico Person Consulting Physician: Nico Person Reason for Consult: right lower pneumonia 07/22/18 14:25 Gastroenterology Consult Stat Comment: Consulting Provider: Kristofer Leo Consulting Physician: Kristofer Leo Reason for Consult: liver cirrhosis, etiology unknown 07/22/18 15:09 Nursing Referral for Wound Care Routine Comment: Physician Instructions: Reason For Exam: Diffuse open and closed ulcers throughout body 07/25/18 11:09 Endocrinology Consult Routine Comment: Consulting Provider: Sruthi Aclaraz Consulting Physician: Sruthi Alcraaz Reason for Consult: hyperglycemia Time Spent in preparation of Discharge (in minutes): 30 Hospital Course - Lab Results Lab Results: Micro Results 07/22/18 11:35 Blood Blood Culture - Preliminary NO GROWTH AFTER 4 DAYS 07/22/18 11:23 Blood Blood Culture - Preliminary NO GROWTH AFTER 4 DAYS 07/23/18 21:00 Urine,Random Urine Culture - Final No Growth (<1,000 CFU/ML) 07/22/18 12:50 Throat Group A Strep Throat Culture - Final NO BETA STREP GROUP A ISOLATED. Most Recent Lab Values WBC 4.3 K/uL (4.8-10.8) L 07/26/18 05:00 RBC 3.13 Mil/uL (4.40-5.90) L 07/26/18 05:00 Hgb 10.2 g/dL (12.0-18.0) L 07/26/18 05:00 Hct 30.2 % (35.0-51.0) L 07/26/18 05:00 MCV 96.5 fl (80.0-94.0) H 07/26/18 05:00 MCH 32.4 pg (27.0-31.0) H 07/26/18 05:00 MCHC 33.6 g/dL (33.0-37.0) 07/26/18 05:00 RDW 15.2 % (11.5-14.5) H 07/26/18 05:00 Plt Count 72 K/uL (130-400) L 07/26/18 05:00 MPV 9.7 fl (7.2-11.7) 07/25/18 05:40 Neut % (Auto) 58.7 % (50.0-75.0) 07/25/18 05:40 Lymph % (Auto) 13.6 % (20.0-40.0) L 07/25/18 05:40 Hanson % (Auto) 16.5 % (0.0-10.0) H 07/25/18 05:40 Eos % (Auto) 10.4 % (0.0-4.0) H 07/25/18 05:40 Baso % (Auto) 0.8 % (0.0-2.0) 07/25/18 05:40 Neut # (Auto) 2.9 K/uL (1.8-7.0) 07/25/18 05:40 Lymph # (Auto) 0.7 K/uL (1.0-4.3) L 07/25/18 05:40 Hanson # (Auto) 0.8 K/uL (0.0-0.8) 07/25/18 05:40 Eos # (Auto) 0.5 K/uL (0.0-0.7) 07/25/18 05:40 Baso # (Auto) 0.0 K/uL (0.0-0.2) 07/25/18 05:40 Neutrophils % (Manual) 70 % (42-75) 07/24/18 05:03 Lymphocytes % (Manual) 12 % (20-50) L 07/24/18 05:03 Monocytes % (Manual) 12 % (0-10) H 07/24/18 05:03 Eosinophils % (Manual) 6 % (0-7) 07/24/18 05:03 Platelet Estimate Decreased (NORMAL) L 07/24/18 05:03 Hypochromasia (manual) Slight 07/24/18 05:03 Anisocytosis (manual) Slight 07/24/18 05:03 Tear Drop Cells Slight 07/24/18 05:03 Ovalocytes Slight 07/24/18 05:03 Schistocytes Slight 07/24/18 05:03 PT 12.7 Seconds (9.8-13.1) 07/25/18 12:15 INR 1.1 07/25/18 12:15 APTT 31.0 Seconds (25.6-37.1) 07/25/18 12:15 pO2 39 mm/Hg (30-55) 07/22/18 11:35 VBG pH 7.38 (7.32-7.43) 07/22/18 11:35 VBG pCO2 28 mmHg (40-60) L 07/22/18 11:35 VBG HCO3 18.7 mmol/L 07/22/18 11:35 VBG Total CO2 17.5 mmol/L (22-28) L 07/22/18 11:35 VBG O2 Sat (Calc) 82.3 % (40-65) H 07/22/18 11:35 VBG Base Excess -7.1 mmol/L (0.0-2.0) L 07/22/18 11:35 VBG Potassium 4.5 mmol/L (3.6-5.2) 07/22/18 11:35 Sodium 138.0 mmol/L (132-148) 07/22/18 11:35 Chloride 111.0 mmol/L (98-107) H 07/22/18 11:35 Glucose 119 mg/dL (75-110) H 07/22/18 11:35 Lactate 1.9 mmol/L (0.7-2.1) 07/22/18 11:35 FiO2 21.0 % 07/22/18 11:35 Sodium 143 mmol/l (132-148) 07/26/18 05:00 Potassium 3.6 MMOL/L (3.6-5.0) 07/26/18 05:00 Chloride 113 mmol/L (98-107) H 07/26/18 05:00 Carbon Dioxide 18 mmol/L (22-30) L 07/26/18 05:00 Anion Gap 16 (10-20) 07/26/18 05:00 BUN 76 mg/dl (9-20) H 07/26/18 05:00 Creatinine 3.1 mg/dl (0.8-1.5) H 07/26/18 05:00 Est GFR ( Amer) 07/26/18 05:00 Est GFR (Non-Af Amer) 07/26/18 05:00 POC Glucose (mg/dL) 118 mg/dL (65-110) H 07/26/18 12:11 Random Glucose 86 mg/dL (75-110) 07/26/18 05:00 Hemoglobin A1c 6.0 % (4.2-6.5) 07/26/18 05:00 Uric Acid 11.1 mg/Dl (3.5-8.5) H 07/23/18 10:50 Calcium 8.5 mg/dL (8.4-10.2) 07/26/18 05:00 Phosphorus 4.6 mg/dl (2.5-4.5) H 07/25/18 05:40 Magnesium 2.8 MG/DL (1.6-2.3) H 07/24/18 05:03 Total Bilirubin 0.6 mg/dl (0.2-1.3) 07/26/18 05:00 AST 35 U/L (17-59) 07/26/18 05:00 ALT 32 U/L (21-72) 07/26/18 05:00 Alkaline Phosphatase 89 U/L (38-126) 07/26/18 05:00 Ammonia 42 umol/L (9-33) H 07/22/18 11:23 NT-Pro-B Natriuret Pep 81689 pg/ml (0-900) H 07/23/18 05:30 Total Protein 6.1 G/DL (6.3-8.2) L 07/26/18 05:00 Albumin 3.1 g/dL (3.5-5.0) L 07/26/18 05:00 Globulin 3.0 gm/dL (2.2-3.9) 07/26/18 05:00 Albumin/Globulin Ratio 1.0 (1.0-2.1) 07/26/18 05:00 Triglycerides 134 mg/DL (0-149) D 07/26/18 05:00 Cholesterol 111 mg/dL (0-199) 07/26/18 05:00 LDL Cholesterol Direct 51 mg/dL (0-129) 07/26/18 05:00 HDL Cholesterol 25 MG/DL (30-70) L 07/26/18 05:00 Lipase 295 U/L (23-300) 07/25/18 12:15 Vitamin B12 596 pg/mL (239-931) 07/23/18 05:30 Folate 14.2 ng/mL 07/23/18 05:30 Procalcitonin 0.26 NG/ML (0.19-0.49) 07/23/18 10:50 TSH 3rd Generation 2.26 mIU/ML (0.46-4.68) 07/26/18 05:00 PTH Intact Whole Molec 42 pg/mL (14-64) 07/22/18 13:27 Venous Blood Potassium 4.5 mmol/L (3.6-5.2) 07/22/18 11:35 Urine Color Yellow (YELLOW) 07/23/18 21:00 Urine Clarity Clear (Clear) 07/23/18 21:00 Urine pH 5.0 (5.0-8.0) 07/23/18 21:00 Ur Specific Glidden 1.013 (1.003-1.030) 07/23/18 21:00 Urine Protein 30 mg/dL (NEGATIVE) 07/23/18 21:00 Urine Glucose (UA) Neg mg/dL (NEGATIVE) 07/23/18 21:00 Urine Ketones Negative mg/dL (NEGATIVE) 07/23/18 21:00 Urine Blood Moderate (NEGATIVE) 07/23/18 21:00 Urine Nitrate Negative (NEGATIVE) 07/23/18 21:00 Urine Bilirubin Negative (NEGATIVE) 07/23/18 21:00 Urine Urobilinogen 0.2-1.0 mg/dL (0.2-1.0) 07/23/18 21:00 Ur Leukocyte Esterase Neg Andrea/uL (Negative) 07/23/18 21:00 Urine RBC (Auto) 16 /hpf (0-3) H 07/23/18 21:00 Urine Microscopic WBC 4 /hpf (0-5) 07/23/18 21:00 Ur Squamous Epith Cells 1 /hpf (0-5) 07/23/18 21:00 Urine Osmolality 432 mosm/kg (300-1000) 07/23/18 21:00 Ur Random Creatinine 63.4 mg/dL 07/23/18 21:00 U Random Total Protein 61.0 mg/dL (0.0-12.0) H 07/23/18 21:00 Ur Random Sodium 68 mmol/L 07/23/18 21:00 Fluid Source Peritoneal/ascites 07/25/18 15:00 Fluid Appearance Sl cloudy (CLEAR) 07/25/18 15:00 Fluid WBC 60.0 /mm3 (0.0-300.0) 07/25/18 15:00 Fluid RBC 321.0 /mm3 (0.0-0.0) H 07/25/18 15:00 Fluid Tot Cell Count 100 (0-0) H 07/25/18 15:00 Fluid Neutrophils 48.0 % (0-0) H 07/25/18 15:00 Fluid Lymphocytes 35.0 % (0-0) H 07/25/18 15:00 Fld Monocyte/Macrophag 17 % (0-0) H 07/25/18 15:00 Fluid Glucose 118 mg/dL (NONE ESTABLISHED) 07/25/18 15:00 Fluid Total Protein < 2.0 g/dL (NONE ESTABLISHED) 07/25/18 15:00 Fluid LDH 172 IU (NONE ESTABLISHED) 07/25/18 15:00 Fluid Comment Yellow 07/25/18 15:00 Peritoneal Lipase TNP 07/25/18 15:00 Hepatitis A IgM Ab Negative (NEGATIVE) 07/22/18 11:23 Hep Bs Antigen Negative (NEGATIVE) 07/22/18 11:23 Hep B Core IgM Ab Negative (NEGATIVE) 07/22/18 11:23 Hepatitis C Antibody Negative (NEGATIVE) 07/22/18 11:23 Influenza Typ A,B (EIA) Pos for influenza a (NEGATIVE) H 07/22/18 11:23 Grp A Beta Strep Ag Negative (NEGATIVE) 07/22/18 12:50 - Hospital Course Hospital Course: 88 yo M with pmxhx of Afib, Diabetes, HTN, liver cirrhosis, celiac disease admitted for influenza and acute kidney injury. CXR: R pleural effusions CT chest/abdo/pelvis: 1. Active CHF suggested mild right and minimal left pleural effusions noted. Cardiomegaly. Pulmonary vascular congestion. No pericardial effusion. 2. Limited patchy atelectasis or infiltrate right middle lobe with limited atelectasis favored at the dependent bilateral lower lobes and the lingula. 3. Cirrhosis with limited gastrohepatic ligament varices. Abdominal pelvic ascites felt to be related to cirrhosis. Splenomegaly to 15.9 cm, likely related to cirrhosis and possible hepatofugal blood flow. 4. Borderline segmental colitis descending colon. 5. Enlarged prostate gland. ECHO: EF 35-40%; moderate global hypokinesis of LV, L atrium severely dilated; mild/mod AV stenosis, mod to evere MV regurge; mild tricuspid regurg. Blood culture: NG X 4 days Urine culture: NG Renal US: Pt declined CKD stage 3 -BUN: 94>87>81>76, Cr: 2.9>2.9>3.1>3.1 -Nephrology: Dr. Orozco -s/p Lasix 20 mg -s/p IVF: D5 1/2 NS @ 42 -Renal diet: gluten free Influenza A -Tamiflu 30 mg BID (renal dose) -Isolation precaution: droplet Liver cirrhosis FENG -with abdominal ascites and splenomegaly -Pt states was incidentally found on prior CT abdo -LFT: wnl -GI: Dr. Leo: Possible upper endoscopy -Hepatitis: negative -s/p paracentesis: 2 L on 07/25/2018 R pleural effusion -cxr -chronic -wheezing: controlled with levalbuterol -R sided -DDX PNA -Xopenex prn -Pulmonology: Dr. Person -IVABX: Azithromycin and Zosyn Thromobcytopenia -72 -Hold Lovenox -continue to monitor CHF -Acute -BNP: 05607 -ECHO Afib -NSR with PACs and benign PVCs -Tele: monitoring manager -hx of eliquis: d/c due to (+) heme in stool -Cardiology: Dr. Ca: HTN -HCTZ recently discontinued by Dr. Ca -Cardiology: Dr. Ca: restart aldactone, paracentesis, IVF 40 cc/hr -Metoprolol 50 mg QD, Hydralazine 10 mg PO TID DM -Metformin held -Accuchecks -ICS -hypoglycemia protocol -Endocrinology: Dr. Alcaraz: Flynn Celiac disease; chronic -Renal diet with gluten free DVT prophylaxis -SCD -Held Lovenox 30 mg sc PT: Continue with therapy Dr. Ascencio discharged to TCU for PT: strengthening and continuation of IVABX Case and plan d/w Dr. Anabell Jasso MD PGY2 Discharge Exam - Head Exam Head Exam: ATRAUMATIC - Eye Exam Eye Exam: EOMI - ENT Exam ENT Exam: Mucous Membranes Moist - Respiratory Exam Respiratory Exam: Rales (Mild L lower lung). absent: Wheezes - Cardiovascular Exam Cardiovascular Exam: REGULAR RHYTHM, +S1, +S2 - GI/Abdominal Exam GI & Abdominal Exam: Distended. absent: Tenderness - Neurological Exam Neurological exam: Alert, CN II-XII Intact, Oriented x3 - Psychiatric Exam Psychiatric exam: Normal Affect, Normal Mood Discharge Plan - Follow Up Plan Condition: FAIR Disposition: OTHER INSTITUTION Patient education suggested?: Yes Instructions: Flu, Adult (DC), Nonalcoholic Steatohepatitis (FENG), Cirrhosis (DC), Pulmonary Hypertension, Adult (DC), Fluid in the Belly (Ascites) (DC), Heart Failure (DC), Heart Failure (GEN), Pacemaker (DC), Pacemaker (GEN), Pulmonary Edema (DC), Pulmonary Edema (GEN), Ascites (DC), Ascites (GEN) Additional Instructions: Discharge to TCU for PT: strengthening and continued IV abx Referrals: Sruthi Alcaraz MD [Medical Doctor] - Luís Orozco MD [Staff Provider] - Nico Person MD [Staff Provider] - Papo Ca MD [Primary Care Provider] -
--- NOTE | 2018-07-26 14:38 | CP.PCM.PN ---
Subjective - Date & Time of Evaluation Date of Evaluation: 07/26/18 Time of Evaluation: 10:00 - Subjective Subjective: Patient appears less out of breath.Had 2 liters removed with parascentesis yesterday. Objective - Vital Signs/Intake and Output Vital Signs (last 24 hours): Temp Pulse Resp BP Pulse Ox 98.1 F 65 20 146/77 96 07/26/18 09:51 07/26/18 09:51 07/26/18 09:51 07/26/18 09:51 07/26/18 09:51 Intake and Output: 07/26/18 07/26/18 06:59 18:59 Intake Total 800 Balance 800 - Medications Medications: Current Medications Albumin Human (Albumin Human 25% (12.5 Gm/50 Ml)) 12.5 gm IV Q8 [facility] Last Admin: 07/26/18 09:50 Dose: 12.5 gm Dextrose (Dextrose 50% Inj) 0 ml IV STAT PRN; Protocol PRN Reason: Hypoglycemia Protocol Dextrose (Glutose 15) 0 gm PO ONCE PRN; Protocol PRN Reason: Hypoglycemia Protocol Dicyclomine HCl (Bentyl) 10 mg PO Q8 PRN PRN Reason: abdominal pain/cramps Glucagon (Glucagen Diagnostic Kit) 0 mg IM STAT PRN; Protocol PRN Reason: Hypoglycemia Protocol Hydralazine HCl (Apresoline) 10 mg PO TID [facility] Last Admin: 07/26/18 09:51 Dose: 10 mg Azithromycin 500 mg/ Sodium (Chloride) 250 mls @ 250 mls/hr IVPB DAILY [facility]; Protocol Last Admin: 07/26/18 09:54 Dose: 250 mls/hr Piperacillin Sod/Tazobactam (Sod 2.25 gm/ Sodium Chloride) 100 mls @ 100 mls/hr IVPB Q12H [facility]; Protocol Last Admin: 07/26/18 09:53 Dose: 100 mls/hr Insulin Human Regular (Humulin R) 0 units SC ACHS [facility]; Protocol Last Admin: 07/26/18 09:52 Dose: Not Given Lactobacillus Acidophilus (Bacid Acidophilus) 1 cap PO BID [facility] Last Admin: 07/26/18 09:59 Dose: 1 cap Levalbuterol HCl (Xopenex) 1.25 mg INH RQ8 PRN PRN Reason: Shortness of Breath Last Admin: 07/24/18 12:27 Dose: 1.25 mg Levalbuterol HCl (Xopenex) 0.63 mg INH RQ8 [facility] Last Admin: 07/26/18 07:40 Dose: 0.63 mg Metoprolol Succinate (Toprol Xl) 50 mg PO DAILY [facility] Last Admin: 07/26/18 09:49 Dose: 50 mg Morphine Sulfate (Morphine) 2 mg IVP Q6 PRN PRN Reason: Pain, Mild (1-3) Morphine Sulfate (Morphine) 4 mg IVP Q4 PRN PRN Reason: Pain, moderate (4-7) Oseltamivir Phosphate (Tamiflu Cap) 30 mg PO BID [facility]; Protocol Last Admin: 07/26/18 09:49 Dose: 30 mg Repaglinide (Prandin) 0.5 mg PO TIDAC [facility] Last Admin: 07/26/18 09:52 Dose: 0.5 mg Simethicone (Mylicon Liq) 40 mg PO Q6 PRN PRN Reason: Flatulence Sodium Bicarbonate (Sodium Bicarbonate Tab) 650 mg PO Q6 [facility] Last Admin: 07/26/18 09:49 Dose: 650 mg Spironolactone (Aldactone) 25 mg PO BID [facility] Last Admin: 07/26/18 09:49 Dose: 25 mg - Labs Labs: 07/26/18 05:00 07/26/18 05:00 PT 12.7 Seconds (9.8-13.1) 07/25/18 12:15 INR 1.1 07/25/18 12:15 APTT 31.0 Seconds (25.6-37.1) 07/25/18 12:15 - Head Exam Head Exam: ATRAUMATIC - Eye Exam Eye Exam: Normal appearance - Neck Exam Neck Exam: Full ROM - Respiratory Exam Respiratory Exam: Clear to Ausculation Bilateral - Cardiovascular Exam Cardiovascular Exam: REGULAR RHYTHM, +S1, +S2 - GI/Abdominal Exam GI & Abdominal Exam: Soft. absent: Tenderness Assessment and Plan (1) Liver cirrhosis secondary to FENG Assessment & Plan: Breathing improved post parascentesis. Diuretics being managed by renal due to advanced CKD. Status: Chronic (2) CHF (congestive heart failure) Status: Acute
[2018-07-26 16:10] VITALS: BP 134/50; PULSE 63
[2018-07-26 16:11] VITALS: RESP 18; TEMP 97.6; O2SAT 97
--- NOTE | 2018-07-29 08:23 | PN ---
DATE: 07/26/2018 ENDOCRINOLOGY FOLLOWUP NOTE LOCATION: In room 413. SUBJECTIVE: This is an 88-year-old male with recent uncontrolled type 2 diabetes presenting here with an acute influenza syndrome with supervening right lower lobe pneumonitis and is now being followed closely for metabolic management. His oral intake has been very variable and suboptimal as per the nursing staff as noted. His glucose levels overnight have ranged from 88-105 and 118 mg/dL. LABORATORY DATA: His chemistry showed a BUN of 76, sodium 143, potassium 3.6, chloride 113, CO2 is 18, glucose is 86 and creatinine 3.1. His hemoglobin A1c is 6%. ASSESSMENT: This is an 88-year-old male with uncontrolled type 2 diabetes with right lower lobe pneumonitis and acute influenza syndrome now being followed closely for metabolic management. He also has liver cirrhosis with marked ascites and abdominal distention as noted thereof. PLAN OF MANAGEMENT: We will continue the low-dose oral hypoglycemic drug therapy as given with Prandin at 0.5 mg t.i.d. before meals as ordered. We will encourage increased meal portions at this time as noted and discussed with the patient at bedside. We will obtain serial chemistries and supplement accordingly as needed. We will follow and advise accordingly. Sruthi Alcaarz MD
== END 2018-07-26 18:53 | DRG 682 ==
LOC: SUPCPDRO 10:16 → H.ER 10:16 → H.ERHOLD 12:41 → H.TEL 14:28
PROC: 0W9G3ZZ Drainage of Peritoneal Cavity, Percutaneous Approach (ICD-10-PCS; principal; 2018-07-25)
DX: N17.9 Acute kidney failure, unspecified (principal); J10.00 Influenza due to other identified influenza virus with unspecified type of pneumonia; I50.41 Acute combined systolic (congestive) and diastolic (congestive) heart failure; R18.8 Other ascites; I13.0 Hypertensive heart and chronic kidney disease with heart failure and stage 1 through stage 4 chronic kidney disease, or unspecified chronic kidney disease; E87.2 Acidosis; I48.92 Unspecified atrial flutter; J98.11 Atelectasis; N18.3 Chronic kidney disease, stage 3 (moderate); E11.22 Type 2 diabetes mellitus with diabetic chronic kidney disease; K90.0 Celiac disease; K75.81 Nonalcoholic steatohepatitis (NASH); K71.7 Toxic liver disease with fibrosis and cirrhosis of liver; D69.6 Thrombocytopenia, unspecified; I48.2 Chronic atrial fibrillation; Z80.52 Family history of malignant neoplasm of bladder; Z80.0 Family history of malignant neoplasm of digestive organs; E11.65 Type 2 diabetes mellitus with hyperglycemia; E78.5 Hyperlipidemia, unspecified; E88.09 Other disorders of plasma-protein metabolism, not elsewhere classified; I07.1 Rheumatic tricuspid insufficiency; Z82.49 Family history of ischemic heart disease and other diseases of the circulatory system; I27.20 Pulmonary hypertension, unspecified; I35.0 Nonrheumatic aortic (valve) stenosis; I49.3 Ventricular premature depolarization; K52.9 Noninfective gastroenteritis and colitis, unspecified; N40.0 Benign prostatic hyperplasia without lower urinary tract symptoms; Z79.899 Other long term (current) drug therapy; Z90.49 Acquired absence of other specified parts of digestive tract; D64.9 Anemia, unspecified; D69.9 Hemorrhagic condition, unspecified; Z79.84 Long term (current) use of oral hypoglycemic drugs; E79.0 Hyperuricemia without signs of inflammatory arthritis and tophaceous disease; R16.1 Splenomegaly, not elsewhere classified